=== PATIENT | female | born 1950 | race Caucasian/White ===

== ENCOUNTER 2019-12-28 07:42 | Outpatient (REF) | payer MEDICARE, OTHER, SELFPAY ==
[2019-12-28 10:20] LABS: MANUAL DIFF FLAG NO
[2019-12-28 10:41] LABS: Basophils Percent Auto 0.8 % (0-2); Eosinophils Absolute Auto 0.2 X10*3/uL (0.0-0.4); Eosinophils Percent Auto 3.2 % (0-4); Hematocrit 42.1 % (37-47); Hemoglobin 13.7 g/dl (12.0-16.0); Imm Gran Abs Auto 0.02 X10*3/uL (0.00-0.03); Imm Gran Pct Auto 0.4 % (0.0-0.4); Lymphocytes Absolute Auto 1.7 X10*3/uL (1.2-4.9); Lymphocytes Percent Auto 32.1 % (20-40); Mean Corpuscular HGB Conc 32.5 g/dl (31.0-35.0); Mean Corpuscular Hemoglobin 28.8 pg (27.0-33.0); Mean Corpuscular Volume 88.6 fL (80-98); Mean Platelet Volume 9.5 fL (9.4-12.3); Monocytes Absolute Auto 0.7 X10*3/uL (0.1-1.2); Monocytes Percent Auto 13.8 % (2-11); Neutrophils Absolute Auto 2.6 X10*3/uL (2.0-8.3); Neutrophils Percent Auto 49.7 % (45-73); Platelet Count 254 X10*3/uL (160-400); Red Blood Count 4.75 X10*6/uL (4.20-5.50); Red Cell Distribution Width 13.3 % (11.0-16.0); White Blood Count 5.3 X10*3/uL (4.8-10.8)
[2019-12-28 11:17] LABS: Alanine Aminotransferase 15 U/L (0-31); Albumin Level 4.2 g/dL (3.5-5.0); Alkaline Phosphatase 58 U/L (39-117); Anion Gap 13 (12-20); Aspartate Amino Transferase 25 U/L (5-31); Bilirubin Total 0.5 mg/dL (0.0-1.0); Blood Urea Nitrogen 11 mg/dL (9-16); Calcium 8.5 mg/dL (8.4-10.2); Carbon Dioxide 29 mmol/L (22-29); Chloride 103 mmol/L (96-108); Cholesterol 184 mg/dL; Estimated Glomerular Filt Rate 56; Glucose Fasting 83 mg/dL (60-99); HDL Cholesterol 66 mg/dL; LDL Cholesterol Calculated 108 mg/dl; Potassium 4.1 mmol/l (3.3-5.1); Sodium 141 mmol/L (135-145); Total Protein 6.3 g/dL (6.5-8.0); Triglycerides 53 mg/dL
[2019-12-28 11:29] LABS: Thyroid Stimulating Hormone 6.64 mIU/mL (0.32-4.0); Vitamin D 25-OH Total 45.8 ng/mL (>30)
[2019-12-28 12:10] LABS: Folate 18.8 ng/mL (> or = 4.0); Vitamin B12 735 pg/mL (200-900)
[2019-12-28 18:14] LABS: T4 Thyroxine 5.1 ug/dL (4.5-12.0)
== END 2019-12-28 07:43 | disposition home or self-care (01) ==
LOC: HO.10HDL 07:42
PROVIDERS: PCP Internal Medicine; Visit Provider Internal Medicine
DX: E03.9 Hypothyroidism, unspecified (principal); M81.0 Age-related osteoporosis without current pathological fracture
CPT/HCPCS: 36415; 80053; 80061; 82306; 82607; 82746; 84436; 84443; 85025

== ENCOUNTER 2020-05-14 11:24 | Outpatient (REF) | payer MEDICARE, OTHER, SELFPAY ==
[2020-05-14 15:19] LABS: Thyroid Stimulating Hormone 1.92 uIU/mL (0.32-4.0)
== END 2020-05-14 11:25 | disposition home or self-care (01) ==
LOC: HO.10HDL 11:24
PROVIDERS: Visit Provider Internal Medicine
DX: E03.9 Hypothyroidism, unspecified (principal)
CPT/HCPCS: 36415; 84439; 84443

== ENCOUNTER 2020-11-12 08:34 | Outpatient (REF) | payer MEDICARE, OTHER, SELFPAY ==
[2020-11-12 10:08] LABS: MANUAL DIFF FLAG NO
[2020-11-12 10:15] LABS: Basophils Absolute Auto 0.1 X10*3/uL (0.0-0.2); Basophils Percent Auto 0.9 % (0-2); Eosinophils Absolute Auto 0.2 X10*3/uL (0.0-0.4); Eosinophils Percent Auto 2.8 % (0-4); Hematocrit 40.7 % (37-47); Hemoglobin 13.5 g/dl (12.0-16.0); Imm Gran Abs Auto 0.02 X10*3/uL (0.00-0.03); Imm Gran Pct Auto 0.4 % (0.0-0.4); Lymphocytes Absolute Auto 1.7 X10*3/uL (1.2-4.9); Lymphocytes Percent Auto 31.2 % (20-40); Mean Corpuscular HGB Conc 33.2 g/dl (31.0-35.0); Mean Corpuscular Hemoglobin 29.2 pg (27.0-33.0); Mean Corpuscular Volume 87.9 fL (80-98); Monocytes Absolute Auto 0.7 X10*3/uL (0.1-1.2); Monocytes Percent Auto 12.9 % (2-11); Neutrophils Absolute Auto 2.8 X10*3/uL (2.0-8.3); Neutrophils Percent Auto 51.8 % (45-73); Platelet Count 234 X10*3/uL (160-400); Red Blood Count 4.63 X10*6/uL (4.20-5.50); Red Cell Distribution Width 13.3 % (11.0-16.0); White Blood Count 5.4 X10*3/uL (4.8-10.8)
[2020-11-12 10:40] LABS: Alanine Aminotransferase 16 U/L (0-31); Albumin Level 4.2 g/dL (3.5-5.0); Alkaline Phosphatase 57 U/L (39-117); Anion Gap 10 (12-20); Aspartate Amino Transferase 22 U/L (5-31); Bilirubin Total 0.8 mg/dL (0.0-1.0); Blood Urea Nitrogen 10 mg/dL (9-16); Calcium 9.2 mg/dL (8.4-10.2); Carbon Dioxide 29 mmol/L (22-29); Chloride 106 mmol/L (96-108); Cholesterol 184 mg/dL; Estimated Glomerular Filt Rate > 60; Glucose Random 89 mg/dL (60-115); HDL Cholesterol 64 mg/dL; LDL Cholesterol Calculated 111 mg/dl; Potassium 4.2 mmol/L (3.3-5.1); Sodium 141 mmol/L (135-145); Total Protein 6.2 g/dL (6.5-8.0); Triglycerides 47 mg/dL
[2020-11-12 11:05] LABS: Free T4 (Free Thyroxine) 0.77 ng/dL (0.71-1.85); Thyroid Stimulating Hormone 1.54 uIU/mL (0.32-4.0); Vitamin D 25-OH Total 46.2 ng/mL (>30)
[2020-11-12 11:16] LABS: Vitamin B12 632 pg/mL (200-900)
== END 2020-11-12 08:35 | disposition home or self-care (01) ==
LOC: HO.10HDL 08:34
PROVIDERS: Visit Provider Internal Medicine
DX: M81.0 Age-related osteoporosis without current pathological fracture (principal); E78.00 Pure hypercholesterolemia, unspecified
CPT/HCPCS: 36415; 80053; 80061; 82306; 82607; 82746; 84439; 84443; 85025

== ENCOUNTER 2021-08-01 11:13 | Outpatient (REF) | payer MEDICARE, OTHER, SELFPAY ==
[2021-08-01 11:21] LABS: MANUAL DIFF FLAG NO
[2021-08-01 11:32] LABS: Basophils Absolute Auto 0.1 X10*3/uL (0.0-0.2); Basophils Percent Auto 0.7 % (0-2); Eosinophils Absolute Auto 0.1 X10*3/uL (0.0-0.4); Eosinophils Percent Auto 1.7 % (0-4); Hematocrit 40.6 % (37.0-47.0); Hemoglobin 13.1 g/dl (12.0-16.0); Imm Gran Abs Auto 0.03 X10*3/uL (0.00-0.03); Imm Gran Pct Auto 0.4 % (0.0-0.4); Lymphocytes Absolute Auto 1.8 X10*3/uL (1.2-4.9); Lymphocytes Percent Auto 25.9 % (20-40); Mean Corpuscular HGB Conc 32.3 g/dl (31.0-35.0); Mean Corpuscular Hemoglobin 28.1 pg (27.0-33.0); Mean Corpuscular Volume 86.9 fL (80.0-98.0); Mean Platelet Volume 8.9 fL (9.4-12.3); Monocytes Absolute Auto 0.9 X10*3/uL (0.1-1.2); Monocytes Percent Auto 12.7 % (2-11); Neutrophils Absolute Auto 4.1 x10*3/uL (2.0-8.3); Neutrophils Percent Auto 58.6 % (45-73); Platelet Count 249 X10*3/uL (160-400); Red Blood Count 4.67 X10*6/uL (4.20-5.50); Red Cell Distribution Width 13.3 % (11.0-16.0)
== END 2021-08-01 11:14 | disposition home or self-care (01) ==
LOC: HO.LAB 11:13
PROVIDERS: PCP Internal Medicine; Visit Provider Internal Medicine
DX: Z01.818 Encounter for other preprocedural examination (principal)
CPT/HCPCS: 36415; 85025

== ENCOUNTER 2021-11-24 07:33 | Outpatient (REF) | payer MEDICARE, OTHER, SELFPAY ==
[2021-11-24 11:02] LABS: Anion Gap 14 (12-20); Blood Urea Nitrogen 13 mg/dL (9-16); Calcium 9.2 mg/dL (8.4-10.2); Carbon Dioxide 28 mmol/L (22-29); Chloride 103 mmol/L (96-108); Estimated Glomerular Filt Rate 60; Glucose Fasting 84 mg/dL (60-99); Potassium 4.1 mmol/L (3.3-5.1); Sodium 141 mmol/L (135-145)
[2021-11-24 11:26] LABS: TSH reflex Free T4 2.82 uIU/mL (0.32-4.0)
== END 2021-11-24 07:34 | disposition home or self-care (01) ==
LOC: HO.10HDL 07:33
PROVIDERS: Visit Provider Nurse Practitioner Family
DX: E03.9 Hypothyroidism, unspecified (principal); Z13.1 Encounter for screening for diabetes mellitus
CPT/HCPCS: 36415; 80048; 84443

== ENCOUNTER 2022-11-19 09:54 | Outpatient (AMB) | payer MEDICARE, OTHER, SELFPAY ==
[2022-11-19 09:56] VITALS: BP 130/82; PULSE 85; O2SAT 98; BMI 21.2
--- NOTE | 2022-11-19 09:56 | A.OFFVIS_ITS ---
Intake Vital Signs 11/19/22 09:56 Height 5 ft 1 in Weight 112 lb BMI 21.2 BP 130/82 Blood Pressure Location Lt brachial Position Sitting Pulse 85 Pulse Source Pulse Oximeter Temp Source Skin Pulse Oximetry (%) 98 Oxygen Delivery Method Room Air Intake Visit Reasons: AWV(last 11/18/21) Intake Note: Patient is here for an Annual Wellness Visit. 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 Patient of Dr. Stone. Today we discussed patient's need for diabetes screening, bone density screening, mammogram, and colon cancer screening. Patient has declined mammogram and colon cancer screening. Up-to-date with immunizations. [place] of care was reviewed with the patient and she was provided with a screening schedule. Patient reports that she did fill out healthcare proxy and MOLST forms in the past, none on file, patient will check her home files, if she does not have those forms she will fill out new forms. [facility] Medical History Preop exam for internal medicine Osteoporosis GERD (gastroesophageal reflux disease) Hypothyroid Surgical History History of tonsillectomy and adenoidectomy Social History Housing: House Alcohol intake: current Alcohol intake frequency: holidays/special occasions only Patient Tobacco Use Status: Never used Tobacco e-Cigarette/Vaping Use: Never Used Second Hand Smoke Exposure: No service: No Current occupational status: retired Cognitive needs: No Hearing needs: No Vision needs: Yes Questionnaire Medicare Wellness Checkup What [age]?: 70-79 (71) What gender do you identify with?: female During the past 4 weeks, how much have you been bothered by emotional problems such as feeling anxious, depressed, irritable, sad or downhearted, and blue?: not at all During the past 4 weeks, has your physical & emotional health limited your social activities with family, friends, neighbors, or groups?: not at all During the past 4 weeks, how much bodily pain have you generally had?: no pain During the past 4 weeks, was someone available to help you if you needed & wanted help?: yes, as much as I wanted During the past 4 weeks, what was the hardest physical activity you could do for at least 2 minutes?: heavy Can you get to places out of walking distance without help? (For eg., can you travel alone on buses, taxis or drive your car?): Yes Can you go shopping for groceries or clothes without someone's help?: Yes Can you prepare your own meals?: Yes Can you do your housework without help?: Yes Because of any health problems, do you need the help of another person with your personal care needs such as eating, bathing, dressing or getting around the house?: No Can you handle your own money without help?: Yes During the past 4 weeks, how would you rate your health in general?: very good During the past 4 weeks how have things been going for you?: pretty well Are you having difficulties driving your car?: no Do you always fasten your seat belt when you are in a car?: yes, usually During past 4 weeks, have you been bothered by the following: never: Falling or dizzy when standing up, Sexual problems?, Trouble eating well?, Teeth or denture problems?, Problems using the telephone? and Tiredness or fatigue? Have you fallen 2 or more times in the past year?: No Are you afraid of falling?: No Are you a smoker?: no During the past 4 weeks, how many drinks of wine, beer, or other alcoholic beverages did you have?: 1 drink or less per week Do you exercise for about 20 minutes 3 or more times a week?: yes, most of the time Have you been given information to help with the following?: no: Hazards in your house that might hurt you? and no: Keeping track of your medications? How often do you have trouble taking medicines the way you have been told to take them?: I always take medicine as prescribed How confident are you that you can control & manage most of your health problems?: very confident What is your race?: White Mini Mental State Exam (MMSE) Orientation What is the (year) (season) (date) (day) (month)?: year, season, date, day and month Score Score: 5 Activity of Daily Living Bathing - sponge bath, tub bath or shower: receives no assistance (gets in/out by self, if usual bathing means Dressing - getting clothes from closets & drawers, including inner/outer garments & fasteners.: gets clothes & gets completely dressed without help Toileting - going to the 'toilet room' for urine/bowel elimination & cleaning self/arranging clothes: goes to toilet room, cleans self, arranges clothes without help Transfer: moves in & out of bed and chair without help (may use support object) Continence: controls urination/bowel movements completely by self Feeding: feeds self without help Total Score: 0 Information obtained from: patient Using telephone: independent Traveling: independent Shopping: independent Preparing meals: independent Housework: independent Taking medicine: independent Managing money: independent PHQ-9 Over the last 2 weeks, how often have you been bothered by any of the following problems? 1. Little interest or pleasure in doing things: not at all 2. Feeling down, depressed, or hopeless: not at all 3. Trouble falling or staying asleep, or sleeping too much: not at all 4. Feeling tired or having little energy: not at all 5. Poor appetite or overeating: not at all 6. Feeling bad about yourself - or that you are a failure or have let yourself or your family down: not at all 7. Trouble concentrating on things, such as reading the newspaper or watching television: not at all 8. Moving or speaking so slowly that other people could have noticed. Or the opposite - being so fidgety or restless that you have been moving around a lot more than usual: not at all 9. Thoughts that you would be better off or of hurting yourself in some way: not at all Total score: 0 Depression Screening Interpretation: Negative 61153 - PHQ-9 Billing: Yes Source: Developed by Drs. Lizandro Vergara, Laila Chua, Feliberto Lange and colleagues, with an educational milton from [employer]. Physical Exam Vital Signs: Last Vital Signs Pulse 85 11/19/22 09:56 BP 130/82 11/19/22 09:56 Pulse Ox 98 11/19/22 09:56 Oxygen Delivery Method Room Air 11/19/22 09:56 BMI result Body Mass Index 21.2 Const General: cooperative and no acute distress Orientation/consciousness: patient oriented x3 HEENT Other: Whisper test: pass Neuro Other: Balance: Normal Get up and walk: able to Romberg: negative Tandem gait: able to General: patient oriented x3 Assessment & Plan Assessment & Plan (1) Adult general medical exam: Code(s): Z00.00 - Encounter for general adult medical examination without abnormal findings (2) Screening for diabetes mellitus: Code(s): Z13.1 - Encounter for screening for diabetes mellitus (3) Mammogram declined: Code(s): Z53.20 - Procedure and treatment not carried out because of patient's decision for unspecified reasons (4) GERD (gastroesophageal reflux disease): Code(s): K21.9 - Gastro-esophageal reflux disease without esophagitis Qualifiers: Esophagitis presence: without esophagitis Qualified Code(s): K21.9 - Gastro-esophageal reflux disease without esophagitis Plan: Stable Avoid GERD trigger foods (5) Hypothyroid: Code(s): E03.9 - Hypothyroidism, unspecified Qualifiers: Hypothyroidism type: acquired Qualified Code(s): E03.9 - Hypothyroidism, unspecified Plan: [place] 60 mg daily (6) Post-menopausal: Code(s): Z78.0 - Asymptomatic menopausal state (7) Colonoscopy refused: Code(s): Z53.20 - Procedure and treatment not carried out because of patient's decision for unspecified reasons (8) Osteoporosis: Code(s): M81.0 - Age-related osteoporosis without current pathological fracture Qualifiers: Osteoporosis type: age-related Presence of current pathological fracture: without current pathological fracture Qualified Code(s): M81.0 - Age- related osteoporosis without current pathological fracture Plan: Bone density screen ordered Orders: Orders Basic Metabolic Panel Fasting Today Z13.1 - Encounter for screening for diabetes mellitus XR DEXA axial skeleton Today M81.0 - Age-related osteoporosis without current pathological fracture, Z78.0 - Asymptomatic menopausal state Quality Reporting (2019) Depression/Bipolar (159/160/161/177) PHQ-9: Total score: 0 Coding Level of Care Code Medicare Subsequent (G0439) Diagnoses Adult general medical exam Z00.00 Screening for diabetes mellitus Z13.1 Mammogram declined Z53.20 Gastroesophageal reflux disease without esophagitis K21.9 Esophagitis presence: without esophagitis Acquired hypothyroidism E03.9 Hypothyroidism type: acquired Post-menopausal Z78.0 Colonoscopy refused Z53.20 Age-related osteoporosis without current pathological fracture M81.0 Osteoporosis type: age-related Presence of current pathological fracture: without current pathological fracture CPT Codes Advance Care Planning - Time spent: 1-15 minutes, not on file ([id number]) Advance Care Planning Advance Care Planning discussion: Exists, not on file Date of discussion: 11/19/22 Who was present: pt and medical administrative technician Forms completed: None Time spent: 1-15 minutes, not on file Actual minutes spent: 2 Did not discuss due to Cultural/Spiritual beliefs: No
== END 2022-11-19 10:39 | disposition home or self-care (01) ==
PROVIDERS: Visit Provider Nurse Practitioner Family
DX: Z00.00 Encounter for general adult medical examination without abnormal findings (principal); Z13.1 Encounter for screening for diabetes mellitus; Z53.20 Procedure and treatment not carried out because of patient's decision for unspecified reasons; K21.9 Gastro-esophageal reflux disease without esophagitis; E03.9 Hypothyroidism, unspecified; Z78.0 Asymptomatic menopausal state; M81.0 Age-related osteoporosis without current pathological fracture
CPT/HCPCS: 1124F; G0439

== ENCOUNTER 2022-12-01 07:45 | Outpatient (REF) | payer MEDICARE, OTHER, SELFPAY | END 2022-12-01 07:46 | disposition home or self-care (01) | LOC: HO.10HDL 07:45 | PROVIDERS: Visit Provider Nurse Practitioner Family | DX: Z13.1 Encounter for screening for diabetes mellitus (principal) | CPT/HCPCS: 36415; 80048 ==

== ENCOUNTER 2023-01-01 08:51 | Outpatient (REF) | payer MEDICARE, OTHER, SELFPAY ==
[2023-01-01 11:09] LABS: MANUAL DIFF FLAG NO
[2023-01-01 11:33] LABS: Alanine Aminotransferase 12 U/L (0-31); Albumin Level 4.2 g/dL (3.5-5.0); Alkaline Phosphatase 56 U/L (39-117); Anion Gap 11 (12-20); Aspartate Amino Transferase 22 U/L (5-31); Bilirubin Total 0.5 mg/dL (0.0-1.0); Blood Urea Nitrogen 14 mg/dL (9-16); Calcium 9.1 mg/dL (8.4-10.2); Carbon Dioxide 28 mmol/L (22-29); Chloride 106 mmol/L (96-108); Cholesterol 162 mg/dL (<200); Estimated Glomerular Filt Rate > 60; Glucose Random 95 mg/dL (60-115); HDL Cholesterol 63 mg/dL (>40); LDL Cholesterol Calculated 91 mg/dL (<100); Potassium 4.1 mmol/L (3.3-5.1); Sodium 141 mmol/L (135-145); Total Protein 6.4 g/dL (6.5-8.0); Triglycerides 44 mg/dL (<150)
[2023-01-01 11:39] LABS: Basophils Percent Auto 0.9 % (0-2); Eosinophils Percent Auto 3.4 % (0-4); Hemoglobin 13.4 g/dl (12.0-16.0); Imm Gran Abs Auto 0.01 X10*3/uL (0.00-0.03); Imm Gran Pct Auto 0.2 % (0.0-0.4); Lymphocytes Absolute Auto 1.8 X10*3/uL (1.2-4.9); Lymphocytes Percent Auto 31.2 % (20-40); Mean Corpuscular HGB Conc 32.7 g/dl (31.0-35.0); Mean Corpuscular Hemoglobin 27.9 pg (27.0-33.0); Mean Corpuscular Volume 85.4 fL (80.0-98.0); Mean Platelet Volume 9.3 fL (9.4-12.3); Monocytes Absolute Auto 0.9 X10*3/uL (0.1-1.2); Monocytes Percent Auto 15.1 % (2-11); Neutrophils Absolute Auto 2.8 x10*3/uL (2.0-8.3); Neutrophils Percent Auto 49.2 % (45-73); Platelet Count 220 X10*3/uL (160-400); Red Cell Distribution Width 13.5 % (11.0-16.0); White Blood Count 5.6 X10*3/uL (4.8-10.8)
[2023-01-01 11:40] LABS: Basophils Absolute Auto 0.1 X10*3/uL (0.0-0.2); Eosinophils Absolute Auto 0.2 X10*3/uL (0.0-0.4)
[2023-01-01 12:05] LABS: Folate 11.8 ng/mL (> or = 4.0); Vitamin B12 1397 pg/mL (200-900)
[2023-01-01 12:11] LABS: Free T4 (Free Thyroxine) 0.74 ng/dL (0.71-1.85); Thyroid Stimulating Hormone 1.16 uIU/mL (0.32-4.0); Vitamin D 25-OH Total 59.1 ng/mL (>30)
== END 2023-01-01 08:52 | disposition home or self-care (01) ==
LOC: HO.10HDL 08:51
PROVIDERS: Visit Provider Internal Medicine
DX: E03.9 Hypothyroidism, unspecified (principal); E78.00 Pure hypercholesterolemia, unspecified; M81.0 Age-related osteoporosis without current pathological fracture
CPT/HCPCS: 36415; 80053; 80061; 82306; 82607; 82746; 84439; 84443; 85025

== ENCOUNTER 2023-01-08 15:27 | Outpatient (AMB) | payer MEDICARE, OTHER, SELFPAY ==
[2023-01-08 15:29] VITALS: BP 152/80; PULSE 85; O2SAT 98; BMI 21.2
--- NOTE | 2023-01-08 15:29 | MHC.PC.OV ---
Vital Signs 01/08/23 15:29 Height 5 ft 1 in Weight 112 lb BMI 21.2 BP 152/80 H Blood Pressure Location Lt brachial Position Sitting Pulse 85 Pulse Source Pulse Oximeter Pulse Oximetry (%) 98 Oxygen Delivery Method Room Air Intake Visit Reasons: Follow up on labs Health Promotion Officer: Not Required per policy Accompanied by: Self / Same As Patient Allergies Codeine-Guaifenesin Allergy (Unknown, Uncoded 01/08/23 15:30) rash shellfish Adverse Reaction (Mild, Uncoded 01/08/23 15:30) upset stomach Tobacco use date assessed: 01/08/23 Fall risk assessment: No Falls in past year Last assessed Fall Risk: 01/08/23 Dental Screening Dental Screen Date: 01/08/23 Did you have a dental visit in the last 12 months?: Yes Did you have a dental problem in the last 6 months where you did not have access to dental care?: No Was dental information given to patient?: Patient has dentist HPI Follow up on labs HPI Details 72-year-old female with a history of GERD and hypothyroidism last seen in July 2021 coming in for follow-up. Patient was for preop at that time review of the notes had a bone density requested for January 2023. Patient had an annual well visit in October 2022. Patient has seen Orthopedics in April 2022 for thoracic muscular spasms x-ray done shows mild degenerative changes on the back advise heating pad and stretching exercises [facility] Medical History (Updated 01/08/23 @ 16:03 by Mariana Stone MD) Screening for diabetes mellitus Preop exam for internal medicine Osteoporosis GERD (gastroesophageal reflux disease) Hypothyroid Surgical History History of tonsillectomy and adenoidectomy Social History Housing: House Alcohol intake: current Alcohol intake frequency: holidays/special occasions only Patient Tobacco Use Status: Never used Tobacco e-Cigarette/Vaping Use: Never Used Second Hand Smoke Exposure: No service: No Current occupational status: retired Cognitive needs: No Hearing needs: No Vision needs: Yes Questionnaire PHQ-9 Over the last 2 weeks, how often have you been bothered by any of the following problems? 1. Little interest or pleasure in doing things: not at all 2. Feeling down, depressed, or hopeless: not at all 3. Trouble falling or staying asleep, or sleeping too much: not at all 4. Feeling tired or having little energy: not at all 5. Poor appetite or overeating: not at all 6. Feeling bad about yourself - or that you are a failure or have let yourself or your family down: not at all 7. Trouble concentrating on things, such as reading the newspaper or watching television: not at all 8. Moving or speaking so slowly that other people could have noticed. Or the opposite - being so fidgety or restless that you have been moving around a lot more than usual: not at all 9. Thoughts that you would be better off or of hurting yourself in some way: not at all Total score: 0 Depression Screening Interpretation: Negative Depression Screening Done: Yes 75318 - PHQ-9 Billing: Yes Source: Developed by Drs. Lizandro Vergara, Laila Chua, Feliberto Lange and colleagues, with an educational milton from [employer]. Thrive Questionnaire Date Thrive assessed: 01/08/23 I am a: Patient What is your living situation today?: I have a steady place to live Within the past 12 months, did the food you bought not last and you didn't have the money to get more?: Never true Within the past 12 months, did you worry whether your food would run out before you got money to buy more?: Never true Do you have trouble paying for medicines?: No Do you have trouble getting transportation to medical appointments?: No Do you have trouble paying your heating and electricity bill?: No Do you have trouble taking care of your child, family member or friend?: No Do you have trouble with day-to-day activities such as bathing, preparing meals, shopping, managing finances, etc.?: No Are you currently unemployed and looking for a job?: No Are you interested in more education?: No Please select the resources that you would like help with: None AUDIT C Alcohol Use Questionnaire (AUDIT-C) 1. How often do you have a drink containing alcohol?: Monthly or less 2. How many drinks containing alcohol do you have on a typical day when you are drinking?: 1 or 2 3. How often do you have six or more drinks on one occasion?: Never Total Score: 1 Score Reviewed/Action Taken: No SAMANTHA-7 AMB Questionnaire SAMANTHA-7 Date SAMANTHA - 7 assessed: 01/08/23 Feeling nervous, anxious, or on edge: 0 = Not at all Not being able to stop or control worryin = Not at all Worrying too much about different things: 0 = Not at all Trouble relaxin = Not at all Being so restless that it is hard to sit still: 0 = Not at all Becoming easily annoyed or irritable: 0 = Not at all Feeling afraid as if something awful might happen: 0 = Not at all Total SAMANTHA-7 score (0-4 normal; 5-9 mild; 10-14 moderate; 15-21 severe): 0 Source: Developed by Drs. Lizandro Vergara, Laila Chua, Feliberto Lange and colleagues, with an educational milton from [employer]. Physical exam (Primary Care) Vital Signs: Last Vital Signs Pulse 85 01/08/23 15:29 BP 152/80 H 01/08/23 15:29 Pulse Ox 98 01/08/23 15:29 Oxygen Delivery Method Room Air 01/08/23 15:29 BMI result Body Mass Index 21.2 Tobacco/Smoking Status: Tobacco use Status Tobacco use date assessed 01/08/23 01/08/23 15:31 Patient Tobacco Use Status Never used Tobacco 01/08/23 15:31 Tobacco use type 11/07/20 13:35 e-Cigarette/Vaping Use Never Used 01/08/23 15:31 PHQ-9: PHQ-9 Score PHQ-9: Total score 0 01/08/23 15:31 Depression Screening Interpretation: Negative Thrive Assessment: Date of Thrive Assessment Date Thrive assessed 01/08/23 01/08/23 15:31 Const General: alert; No acute distress Eyes Conjunctivae: conjunctivae normal Resp Auscultation: clear to auscultation bilaterally Cardio Rate: regular rate Rhythm: regular rhythm GI Inspection: Yes normal to inspection Extrem General: Yes normal to inspection and No edema Assessment and Plan Assessment & Plan (1) Colon cancer screening: Code(s): Z12.11 - Encounter for screening for malignant neoplasm of colon Plan: Reminded about the Cologuard test (2) GERD (gastroesophageal reflux disease): Code(s): K21.9 - Gastro-esophageal reflux disease without esophagitis Qualifiers: Esophagitis presence: without esophagitis Qualified Code(s): K21.9 - Gastro-esophageal reflux disease without esophagitis Plan: Avoid the foods that causes that usually spicy foods, tomato products, juices, coffee, soda and foods that your sensitive to. After eating do not lie down, allow 3-4 hours before in lie down. And keep the head of bed above 30 degrees to avoid the acid from going up. (3) Hypothyroid: Code(s): E03.9 - Hypothyroidism, unspecified Qualifiers: Hypothyroidism type: acquired Qualified Code(s): E03.9 - Hypothyroidism, unspecified Plan: Continue with the thyroid medication patient gets a different thyroid medication for (4) Osteoporosis: Code(s): M81.0 - Age-related osteoporosis without current pathological fracture Qualifiers: Osteoporosis type: age-related Presence of current pathological fracture: without current pathological fracture Qualified Code(s): M81.0 - Age-related osteoporosis without current pathological fracture Plan: Reminded about the bone density in January Coding Level of Care Code Est Pt Level 4 (98181) Diagnoses Colon cancer screening Z12.11 Gastroesophageal reflux disease without esophagitis K21.9 Esophagitis presence: without esophagitis Acquired hypothyroidism E03.9 Hypothyroidism type: acquired Age-related osteoporosis without current pathological fracture M81.0 Osteoporosis type: age-related Presence of current pathological fracture: without current pathological fracture
== END 2023-01-08 16:33 | disposition home or self-care (01) ==
PROVIDERS: PCP Internal Medicine; Visit Provider Internal Medicine
DX: Z12.11 Encounter for screening for malignant neoplasm of colon (principal); K21.9 Gastro-esophageal reflux disease without esophagitis; E03.9 Hypothyroidism, unspecified; M81.0 Age-related osteoporosis without current pathological fracture
CPT/HCPCS: 99214

== ENCOUNTER 2023-11-24 10:21 | Outpatient (AMB) | payer MEDICARE, OTHER, SELFPAY ==
--- NOTE | 2023-11-24 10:25 | A.OFFVIS_ITS ---
Intake Vital Signs 11/24/23 10:27 11/24/23 10:42 Height 5 ft 1 in Weight 104 lb BMI 19.6 BP 140/80 H 144/70 H Blood Pressure Location Lt brachial Lt brachial Position Sitting Sitting Pulse 87 Pulse Source Pulse Oximeter Pulse Oximetry (%) 98 Oxygen Delivery Method Room Air Intake Visit Reasons: [facility] G0439 [employer] Supervisor Required: No Accompanied by: Self / Same As Patient Allergies Codeine-Guaifenesin Allergy (Unknown, Uncoded 11/24/23 10:29) rash shellfish Adverse Reaction (Mild, Uncoded 11/24/23 10:29) upset stomach Medication List - Last Reconciled 11/24/23 by Mariana Stone MD ascorbic acid (vitamin C) mg PO cholecalciferol (vitamin D3) 50 mcg PO DAILY [heartburn Sooth PO] [omega 3 5 mL PO .QD] [PLANT BASE RED ALgae Calcium 300 mg PO .3 tabs QD] thyroid (pork) ([place] Thyroid) 60 mg PO DAILY [Vitamin b plus PO .QD] HPI V G0439 HPI Details 73-year-old female with GERD hypothyroid ism and osteoporosis last seen in December 2022. Patient declined colon test mammogram. Bone density was requested. Bone density done in 02/10/2023 showing osteoporosis with spine 4.7% decrease hip 5.8 increase femoral neck 4.2 decrease noted weight loss? PAtient takes a lot of diffenrent med - Gluten ease- concern on weight loss PFSH Medical History (Updated 11/24/23 @ 10:59 by Mariana Stone MD) Screening for diabetes mellitus Preop exam for internal medicine Osteoporosis GERD (gastroesophageal reflux disease) Hypothyroid Surgical History History of tonsillectomy and adenoidectomy Social History (Updated 11/24/23 @ 10:49 by Mariana Stnoe MD) Housing: House Alcohol intake: current Alcohol intake frequency: holidays/special occasions only Comment: once a year glass Patient Tobacco Use Status: Never used Tobacco e-Cigarette/Vaping Use: Never Used Second Hand Smoke Exposure: No service: No Current occupational status: retired Cognitive needs: No Hearing needs: No Vision needs: Yes Questionnaire Medicare Wellness Checkup [age] What gender do you identify with?: female During the past 4 weeks, how much have you been bothered by emotional problems such as feeling anxious, depressed, irritable, sad or downhearted, and blue?: not at all During the past 4 weeks, has your physical & emotional health limited your social activities with family, friends, neighbors, or groups?: not at all During the past 4 weeks, how much bodily pain have you generally had?: no pain During the past 4 weeks, was someone available to help you if you needed & wanted help?: yes, as much as I wanted During the past 4 weeks, what was the hardest physical activity you could do for at least 2 minutes?: heavy Can you get to places out of walking distance without help? (For eg., can you travel alone on buses, taxis or drive your car?): Yes Can you go shopping for groceries or clothes without someone's help?: Yes Can you prepare your own meals?: Yes Can you do your housework without help?: Yes Because of any health problems, do you need the help of another person with your personal care needs such as eating, bathing, dressing or getting around the house?: No Can you handle your own money without help?: Yes During the past 4 weeks, how would you rate your health in general?: excellent During the past 4 weeks how have things been going for you?: very well; could hardly better Are you having difficulties driving your car?: no Do you always fasten your seat belt when you are in a car?: yes, usually During past 4 weeks, have you been bothered by the following: never: Falling or dizzy when standing up, Sexual problems?, Trouble eating well?, Teeth or denture problems?, Problems using the telephone? and Tiredness or fatigue? Have you fallen 2 or more times in the past year?: No Are you afraid of falling?: No Are you a smoker?: no During the past 4 weeks, how many drinks of wine, beer, or other alcoholic beverages did you have?: no alcohol at all Do you exercise for about 20 minutes 3 or more times a week?: yes, most of the time Have you been given information to help with the following?: no: Hazards in your house that might hurt you? and no: Keeping track of your medications? How often do you have trouble taking medicines the way you have been told to take them?: I always take medicine as prescribed How confident are you that you can control & manage most of your health problems?: very confident What is your race?: White PHQ-9 Over the last 2 weeks, how often have you been bothered by any of the following problems? 1. Little interest or pleasure in doing things: not at all 2. Feeling down, depressed, or hopeless: not at all 3. Trouble falling or staying asleep, or sleeping too much: not at all 4. Feeling tired or having little energy: not at all 5. Poor appetite or overeating: not at all 6. Feeling bad about yourself - or that you are a failure or have let yourself or your family down: not at all 7. Trouble concentrating on things, such as reading the newspaper or watching television: not at all 8. Moving or speaking so slowly that other people could have noticed. Or the opposite - being so fidgety or restless that you have been moving around a lot more than usual: not at all 9. Thoughts that you would be better off or of hurting yourself in some way: not at all Total score: 0 Depression Screening Interpretation: Negative Depression Screening Done: Yes Source: Developed by Drs. Lizandro Vergara, Laila Chua, Feliberto Lange and colleagues, with an educational milton from [facility]. Fall Risk Assessment Fall Risk Assessment Fall risk assessment: No Falls in past year Thrive Questionnaire Date Thrive assessed: 11/24/23 I am a: Patient What is your living situation today?: I have a steady place to live Within the past 12 months, did the food you bought not last and you didn't have the money to get more?: Never true Within the past 12 months, did you worry whether your food would run out before you got money to buy more?: Never true Do you have trouble paying for medicines?: No Do you have trouble getting transportation to medical appointments?: No Do you have trouble paying your heating and electricity bill?: No Do you have trouble taking care of your child, family member or friend?: No Do you have trouble with day-to-day activities such as bathing, preparing meals, shopping, managing finances, etc.?: No Are you currently unemployed and looking for a job?: No Are you interested in more education?: No Please select the resources that you would like help with: None Currently or been in a relationship where the following occur: No concerns reported THRIVE Score: 0 AUDIT C Alcohol Use Questionnaire (AUDIT-C) 1. How often do you have a drink containing alcohol?: Monthly or less 2. How many drinks containing alcohol do you have on a typical day when you are drinking?: 1 or 2 3. How often do you have six or more drinks on one occasion?: Never Total Score: 1 SAMANTHA-7 AMB Questionnaire SAMANTHA-7 Date SAMANTHA - 7 assessed: 11/24/23 Feeling nervous, anxious, or on edge: 0 = Not at all Not being able to stop or control worryin = Not at all Worrying too much about different things: 0 = Not at all Trouble relaxin = Not at all Being so restless that it is hard to sit still: 0 = Not at all Becoming easily annoyed or irritable: 0 = Not at all Feeling afraid as if something awful might happen: 0 = Not at all Total SAMANTHA-7 score (0-4 normal; 5-9 mild; 10-14 moderate; 15-21 severe): 0 Source: Developed by Drs. Lizandro Vergara, Laila Chua, Feliberto Lange and colleagues, with an educational milton from [facility]. Review of Systems Const Denies poor appetite and Denies weakness Eyes Denies no additional complaints ENT Reports Normal hearing present, Denies dizziness, Denies nasal congestion, Denies tinnitus and Denies sore throat Card Denies chest pain, Denies syncope, Denies rapid heart rate and Denies dyspnea Resp Denies cough and Denies dyspnea GI Denies change in stool character, Reports constipation, Denies diarrhea, Denies nausea and Denies vomiting Denies urinary frequency, Denies difficulty voiding and Denies dysuria Neuro Reports Normal hearing present, Denies confusion, Denies dizziness, Denies syncope and Denies weakness Psych Denies confusion Physical Exam Vital Signs: Last Vital Signs Pulse 87 11/24/23 10:27 BP 144/70 H 11/24/23 10:42 Pulse Ox 98 11/24/23 10:27 Oxygen Delivery Method Room Air 10/02/24 10:27 BMI result Body Mass Index 19.6 Const General: No confusion Orientation/consciousness: No confusion HEENT Head: Yes normocephalic Ears: external ears normal and TM's normal bilaterally Face and sinus: Yes normal facial exam Mouth: moist mucous membranes Throat: Yes tonsils normal Eyes Conjunctivae: conjunctivae normal Pupils: Equal, round and reactive pupils present and Pupil accommodation reflex normal Direct Ophthalmoscopy: normal light reflex Neck Neck: No lymphadenopathy Thyroid: Thyroid normal Chest Chest palpation & inspection: normal inspection of the chest Resp Effort & Inspection: normal respiratory effort and no audible wheezes Auscultation: clear to auscultation bilaterally, no crackles, no wheezes and lung sounds not diminished Cardio Rate: regular rate Rhythm: regular rhythm Peripheral pulses: radial pulses present and dorsalis pedis present GI Palpation (GI): no masses Auscultation: normal bowel sounds and normoactive bowel sounds Rectal Exam - Female: deferred Skin General skin exam: no rashes or lesions noted Rashes: no rashes Neuro General: No confusion Cranial nerves: Yes Equal, round and reactive pupils present and Yes Normal hearing present Cognition (Neuro): normal cognition Gait exam (Neuro): Normal gait present Motor exam (neuro): 5/5 motor strength present throughout Deep tendon reflexes (DTR's): Right brachioradialis reflex intensity grade: 2+, Left brachioradialis reflex intensity grade: 2+, Right patellar reflex intensity grade: 2+ and Left patellar reflex intensity grade: 2+ Extrem General: No edema Office Procedures Flu Questionnaire Does the patient have a severe egg allergy?: No Immunizations Fluarix Triv [id number] (PF) 45 mcg (15 mcg x 3)/0.5 mL IM syringe Performing Provider: Mariana Stone MD Performing Location: [facility] Documented (not given) by: SANTOS Brown on 11/24/23 10:37 Reason Not Given: Not Given pneumoc 20-chang conj-dip cr(PF) 0.5 mL IM syringe Performing Provider: Mariana Stone MD Performing Location: [facility] Administered by: SANTOS Brown on 11/24/23 11:15 Dose Route Admin Location Dispensed Lot Number Expiration Date [facility] Melter Caster 0.5 mL IM Right Deltoid 0.5 mL [id number] 09/22/24 [id number] [employer] VIS Given Date VIS Provided VIS Publication Date 11/24/23 Single Vaccine 21 Eligibility Eligibility Date Funding Source Not [facility] Eligible 11/24/23 Private Assessment & Plan Assessment & Plan (1) Medicare annual wellness visit, subsequent: Code(s): Z00.00 - Encounter for general adult medical examination without abnormal findings Plan: Patient is advised to eat healthy, keep well hydrated, keep active and have adequate sleep. (2) Mammogram declined: Code(s): Z53.20 - Procedure and treatment not carried out because of patient's decision for unspecified reasons Plan: Patient has declined (3) Osteoporosis: Code(s): M81.0 - Age-related osteoporosis without current pathological fracture Qualifiers: Osteoporosis type: age-related Presence of current pathological fracture: without current pathological fracture Qualified Code(s): M81.0 - Age- related osteoporosis without current pathological fracture Plan: Discussion about calcium and vitamin-D and medication options. (4) GERD (gastroesophageal reflux disease): Code(s): K21.9 - Gastro-esophageal reflux disease without esophagitis Qualifiers: Esophagitis presence: without esophagitis Qualified Code(s): K21.9 - Gastro-esophageal reflux disease without esophagitis Plan: Avoid the foods that causes that usually spicy foods, tomato products, juices, coffee, soda and foods that your sensitive to. After eating do not lie down, allow 3-4 hours before in lie down. And keep the head of bed above 30 degrees to avoid the acid from going up. (5) Hypothyroid: Code(s): E03.9 - Hypothyroidism, unspecified Qualifiers: Hypothyroidism type: acquired Qualified Code(s): E03.9 - Hypothyroidism, unspecified Plan: Continue with present thyroid medication. (6) Blood pressure elevated without history of HTN: Code(s): R03.0 - Elevated blood-pressure reading, without diagnosis of hypertension Plan: advised to monitor BP at home and record and discuss about the complications of this (7) Colon cancer screening: Code(s): Z12.11 - Encounter for screening for malignant neoplasm of colon Plan: Referral to Gastroenterology (8) Weight loss: Code(s): R63.4 - Abnormal weight loss Plan: Patient is very worried and workup started Orders: Orders Complete Blood Count Auto Diff Today E03.9 - Hypothyroidism, unspecified Free T4 (Free Thyroxine) Today E03.9 - Hypothyroidism, unspecified Vitamin B12 and Folate Today E03.9 - Hypothyroidism, unspecified Influenza [id number] Immunization Today Z23 - Encounter for immunization Comprehensive Met. Panel Today E03.9 - Hypothyroidism, unspecified Lipid Panel Today E03.9 - Hypothyroidism, unspecified, E78.00 - Pure hypercholesterolemia, unspecified Thyroid Stimulating Hormone Today E03.9 - Hypothyroidism, unspecified Vitamin D 25-OH Total Today E03.9 - Hypothyroidism, unspecified Pneumococcal 20 Immunization Today Z23 - Encounter for immunization Referrals Gastroenterology Referral Z12.11 - Encounter for screening for malignant neoplasm of colon Quality Reporting (2019) Fall Risk Screening ([facility] 139) Fall risk assessment: No Falls in past year Depression/Bipolar (159/160/161/177) PHQ-9: Total score: 0 Coding Level of Care Code Medicare Subsequent (G0439) Diagnoses Medicare annual wellness visit, subsequent Z00.00 Mammogram declined Z53.20 Age-related osteoporosis without current pathological fracture M81.0 Osteoporosis type: age-related Presence of current pathological fracture: without current pathological fracture Gastroesophageal reflux disease without esophagitis K21.9 Esophagitis presence: without esophagitis Acquired hypothyroidism E03.9 Hypothyroidism type: acquired Blood pressure elevated without history of HTN R03.0 Colon cancer screening Z12.11 Weight loss R63.4
[2023-11-24 10:27] VITALS: BP 140/80; PULSE 87; O2SAT 98; BMI 19.6
[2023-11-24 10:42] VITALS: BP 144/70
== END 2023-11-24 11:08 | disposition home or self-care (01) ==
PROVIDERS: PCP Internal Medicine; Visit Provider Internal Medicine
DX: Z00.00 Encounter for general adult medical examination without abnormal findings (principal); Z53.20 Procedure and treatment not carried out because of patient's decision for unspecified reasons; M81.0 Age-related osteoporosis without current pathological fracture; K21.9 Gastro-esophageal reflux disease without esophagitis; E03.9 Hypothyroidism, unspecified; R03.0 Elevated blood-pressure reading, without diagnosis of hypertension; Z12.11 Encounter for screening for malignant neoplasm of colon; R63.4 Abnormal weight loss; Z23 Encounter for immunization

== ENCOUNTER → 2023-11-24 10:21 | Outpatient (BNVA) | payer MEDICARE, OTHER, SELFPAY | PROVIDERS: PCP Internal Medicine; Visit Provider Internal Medicine | DX: Z00.01 Encounter for general adult medical examination with abnormal findings (principal); Z23 Encounter for immunization; M81.0 Age-related osteoporosis without current pathological fracture; K21.9 Gastro-esophageal reflux disease without esophagitis; E03.9 Hypothyroidism, unspecified; R03.0 Elevated blood-pressure reading, without diagnosis of hypertension; R63.4 Abnormal weight loss | CPT/HCPCS: 90471; 90677; 96127 ==

== ENCOUNTER 2023-11-25 07:53 | Outpatient (REF) | payer MEDICARE, OTHER, SELFPAY ==
[2023-11-25 08:18] LABS: MANUAL DIFF FLAG NO
[2023-11-25 08:53] LABS: Basophils Absolute Auto 0.1 X10*3/uL (0.0-0.2); Basophils Percent Auto 0.9 % (0-2); Eosinophils Absolute Auto 0.2 X10*3/uL (0.0-0.4); Eosinophils Percent Auto 2.6 % (0-4); Hematocrit 42.3 % (37.0-47.0); Hemoglobin 13.9 g/dl (12.0-16.0); Imm Gran Abs Auto 0.02 X10*3/uL (0.00-0.03); Imm Gran Pct Auto 0.3 % (0.0-0.4); Lymphocytes Absolute Auto 1.9 X10*3/uL (1.2-4.9); Lymphocytes Percent Auto 28.9 % (20-40); Mean Corpuscular HGB Conc 32.9 g/dl (31.0-35.0); Mean Corpuscular Hemoglobin 28.5 pg (27.0-33.0); Mean Corpuscular Volume 86.9 fL (80.0-98.0); Mean Platelet Volume 9.3 fL (9.4-12.3); Monocytes Absolute Auto 0.8 X10*3/uL (0.1-1.2); Monocytes Percent Auto 12.8 % (2-11); Neutrophils Absolute Auto 3.5 x10*3/uL (2.0-8.3); Neutrophils Percent Auto 54.5 % (45-73); Platelet Count 232 X10*3/uL (160-400); Red Blood Count 4.87 X10*6/uL (4.20-5.50); Red Cell Distribution Width 13.2 % (11.0-16.0); White Blood Count 6.4 X10*3/uL (4.8-10.8)
[2023-11-25 09:48] LABS: Alanine Aminotransferase 16 U/L (0-31); Albumin Level 4.3 g/dL (3.5-5.0); Alkaline Phosphatase 68 U/L (39-117); Anion Gap 11 (12-20); Aspartate Amino Transferase 21 U/L (5-31); Bilirubin Total 0.7 mg/dL (0.0-1.0); Blood Urea Nitrogen 10 mg/dL (9-16); Calcium 9.7 mg/dL (8.4-10.2); Carbon Dioxide 29 mmol/L (22-29); Chloride 105 mmol/L (96-108); Cholesterol 170 mg/dL (<200); Estimated Glomerular Filt Rate > 60; Glucose Random 95 mg/dL (60-115); HDL Cholesterol 69 mg/dL (>40); LDL Cholesterol Calculated 93 mg/dL (<100); Potassium 4.2 mmol/L (3.3-5.1); Sodium 141 mmol/L (135-145); Total Protein 6.7 g/dL (6.5-8.0); Triglycerides 43 mg/dL (<150)
[2023-11-25 09:56] LABS: Free T4 (Free Thyroxine) 0.79 ng/dL (0.71-1.85); Thyroid Stimulating Hormone 1.15 uIU/mL (0.32-4.0); Vitamin D 25-OH Total 65.9 ng/mL (>30)
[2023-11-25 10:17] LABS: Folate 12.4 ng/mL (> or = 4.0); Vitamin B12 946 pg/mL (200-900)
== END 2023-11-25 07:54 | disposition home or self-care (01) ==
LOC: HO.LAB 07:53
PROVIDERS: PCP Internal Medicine; Visit Provider Internal Medicine
DX: E03.9 Hypothyroidism, unspecified (principal); E78.00 Pure hypercholesterolemia, unspecified
CPT/HCPCS: 36415; 80053; 80061; 82306; 82607; 82746; 84439; 84443; 85025

== ENCOUNTER 2024-03-10 12:59 | Outpatient (AMB) | payer MEDICARE, OTHER, SELFPAY ==
[2024-03-10 13:04] VITALS: BP 128/72; PULSE 75; O2SAT 97; BMI 21.3
--- NOTE | 2024-03-10 13:04 | MHC.PC.OV ---
Vital Signs 03/10/24 13:04 Height 5 ft 1 in Weight 113 lb BMI 21.3 BP 128/72 Blood Pressure Location Lt brachial Position Sitting Pulse 75 Pulse Source Pulse Oximeter Pulse Oximetry (%) 97 Oxygen Delivery Method Room Air Intake Visit Reasons: Blood pressure, weight loss, Allergies Codeine-Guaifenesin Allergy (Unknown, Uncoded 03/10/24 13:04) rash shellfish Adverse Reaction (Mild, Uncoded 03/10/24 13:04) upset stomach Tobacco use date assessed: 03/10/24 Fall risk assessment: No Falls in past year Last assessed Fall Risk: 03/10/24 Dental Screening Dental Screen Date: 03/10/24 Did you have a dental visit in the last 12 months?: Yes Did you have a dental problem in the last 6 months where you did not have access to dental care?: No Was dental information given to patient?: Patient has dentist HPI Blood pressure, weight loss, HPI Details The patient is a 74-year-old female presenting for a wellness visit. Her medical history is significant for osteoporosis, vitamin B12 elevation, hypertension, hypocalcemia, and resolved anemia. The patient underwent routine blood work on November 24, revealing normal hemoglobin levels, resolving previous anemia, and normal kidney and liver functions. Electrolytes, including sodium and potassium, were normal, and glucose levels were stable. Her lipid panel showed controlled cholesterol levels, especially favorable high-density lipoprotein (HDL) levels at 69 mg/dL, surpassing the target of 50 mg/dL. Low-density lipoprotein (LDL) cholesterol levels were well below the desired threshold, contributing to cardiac protection. The patient reported adhering to a regular workout regimen, including weightlifting, and remains physically active, with focused efforts to maintain hydration. She experienced a weight anomaly, previously noted at 104 pounds, attributed potentially to calcium supplementation. She has since ceased this supplementation, suspecting a connection with the weight change. The patient's review did note an elevated vitamin B12 level, minorly above the typical range attributable to dietary intake of [id number]-[id number] foods. Her use of B12 supplements was minimal, indicating dietary sources as the likely cause. Calcium intake was under review due to diagnosed osteoporosis and weak bones, discovered via previous bone densitometry. The patient has paused additional bone supplements but remains on vitamin D, reported as adequate. Family history reveals her mother suffered a fracture later in life, but no early familial fracture history was noted. Her cardiovascular examination corroborated satisfactory home-measured blood pressure readings at 131/74 mmHg, with even lower readings recorded in the current clinical setting. Current precautions against respiratory illnesses, especially influenza, COVID-19, and RSV, are emphasized due to rising communal transmission rates. The patient has received all recommended vaccinations but acknowledges the necessity of maintaining vigilance regarding health safety practices. PENDING SALE TO [facility] Medical History (Updated 11/24/23 @ 10:59 by Mariana Stone MD) Screening for diabetes mellitus Preop exam for internal medicine Osteoporosis GERD (gastroesophageal reflux disease) Hypothyroid Surgical History History of tonsillectomy and adenoidectomy Social History (Updated 11/24/23 @ 10:49 by Mariana Stone MD) Housing: House Alcohol intake: current Alcohol intake frequency: holidays/special occasions only Comment: once a year glass Patient Tobacco Use Status: Never used Tobacco Tobacco use type: Cigarette e-Cigarette/Vaping Use: Never Used Second Hand Smoke Exposure: No service: No Current occupational status: retired Cognitive needs: No Hearing needs: No Vision needs: Yes Questionnaire PHQ-9 Over the last 2 weeks, how often have you been bothered by any of the following problems? 1. Little interest or pleasure in doing things: not at all 2. Feeling down, depressed, or hopeless: not at all 3. Trouble falling or staying asleep, or sleeping too much: not at all 4. Feeling tired or having little energy: not at all 5. Poor appetite or overeating: not at all 6. Feeling bad about yourself - or that you are a failure or have let yourself or your family down: not at all 7. Trouble concentrating on things, such as reading the newspaper or watching television: not at all 8. Moving or speaking so slowly that other people could have noticed. Or the opposite - being so fidgety or restless that you have been moving around a lot more than usual: not at all 9. Thoughts that you would be better off or of hurting yourself in some way: not at all Total score: 0 Depression Screening Interpretation: Negative Depression Screening Done: Yes Source: Developed by Drs. Lizandro Vergara, Laila Feliberto Rosales and colleagues, with an educational milton from [employer]. Thrive Questionnaire Date Thrive assessed: 03/10/24 I am a: Patient What is your living situation today?: I have a steady place to live Within the past 12 months, did the food you bought not last and you didn't have the money to get more?: Never true Within the past 12 months, did you worry whether your food would run out before you got money to buy more?: Never true Do you have trouble paying for medicines?: No Do you have trouble getting transportation to medical appointments?: No Do you have trouble paying your heating and electricity bill?: No Do you have trouble taking care of your child, family member or friend?: No Do you have trouble with day-to-day activities such as bathing, preparing meals, shopping, managing finances, etc.?: No Are you currently unemployed and looking for a job?: No Are you interested in more education?: No Please select the resources that you would like help with: None Currently or been in a relationship where the following occur: No concerns reported THRIVE Score: 0 AUDIT C Alcohol Use Questionnaire (AUDIT-C) 2. How many drinks containing alcohol do you have on a typical day when you are drinking?: 1 or 2 3. How often do you have six or more drinks on one occasion?: Never Total Score: 0 SAMANTHA-7 AMB Questionnaire SAMANTHA-7 Date SAMANTHA - 7 assessed: 03/10/24 Feeling nervous, anxious, or on edge: 0 = Not at all Not being able to stop or control worryin = Not at all Worrying too much about different things: 0 = Not at all Trouble relaxin = Not at all Being so restless that it is hard to sit still: 0 = Not at all Becoming easily annoyed or irritable: 0 = Not at all Feeling afraid as if something awful might happen: 0 = Not at all Total SAMANTHA-7 score (0-4 normal; 5-9 mild; 10-14 moderate; 15-21 severe): 0 Source: Developed by Drs. Lizandro Vergara, Feliberto Asher and colleagues, with an educational milton from [employer]. Physical exam (Primary Care) Vital Signs: Last Vital Signs Pulse 75 03/10/24 13:04 BP 128/72 03/10/24 13:04 Pulse Ox 97 03/10/24 13:04 Oxygen Delivery Method Room Air 03/10/24 13:04 BMI result Body Mass Index 21.3 Tobacco/Smoking Status: Tobacco use Status Tobacco use date assessed 03/10/24 03/10/24 13:10 Patient Tobacco Use Status Never used Tobacco 03/10/24 13:10 Tobacco use type Cigarette 03/10/24 13:10 e-Cigarette/Vaping Use Never Used 03/10/24 13:10 PHQ-9: PHQ-9 Score PHQ-9: Total score 0 03/10/24 13:24 Depression Screening Interpretation: Negative Thrive Assessment: Date of Thrive Assessment Date Thrive assessed 03/10/24 03/10/24 13:10 Currently or been in a relationship where the following occur: No concerns reported Const General: alert; No acute distress Eyes Conjunctivae: conjunctivae normal Resp Auscultation: clear to auscultation bilaterally Cardio Rate: regular rate Rhythm: regular rhythm GI Inspection: Yes normal to inspection Extrem General: Yes normal to inspection and No edema Coding Level of Care Code Est Pt Level 4 (21387) Diagnoses Age-related osteoporosis without current pathological fracture M81.0 Osteoporosis type: age-related Presence of current pathological fracture: without current pathological fracture Gastroesophageal reflux disease without esophagitis K21.9 Esophagitis presence: without esophagitis Acquired hypothyroidism E03.9 Hypothyroidism type: acquired Assessment & Plan Assessment & Plan (1) Osteoporosis: Code(s): M81.0 - Age-related osteoporosis without current pathological fracture Category: Medical Qualifiers: Osteoporosis type: age-related Presence of current pathological fracture: without current pathological fracture Qualified Code(s): M81.0 - Age-related osteoporosis without current pathological fracture (2) GERD (gastroesophageal reflux disease): Code(s): K21.9 - Gastro-esophageal reflux disease without esophagitis Category: Medical Qualifiers: Esophagitis presence: without esophagitis Qualified Code(s): K21.9 - Gastro-esophageal reflux disease without esophagitis (3) Hypothyroid: Code(s): E03.9 - Hypothyroidism, unspecified Category: Medical Qualifiers: Hypothyroidism type: acquired Qualified Code(s): E03.9 - Hypothyroidism, unspecified Plan - Continue to focus on preventive care, emphasizing adequate hydration, a balanced diet, and regular physical activity. - Monitor vitamin levels; recommend maintaining awareness of dietary sources. - Continue management of osteoporosis with a focus on dietary calcium intake and vitamin D maintenance, considering medication to decrease fracture risk as needed. - Monitor blood pressure closely; continue current hypertension management, given the current satisfactory control. - Reinforce fall prevention strategies, advising care with environmental hazards to minimize fracture risk. - Encourage seasonal and respiratory illness precautions, emphasizing hand hygiene and limiting exposure to ill contacts.
== END 2024-03-10 15:14 | disposition home or self-care (01) ==
PROVIDERS: PCP Internal Medicine; Visit Provider Internal Medicine
DX: M81.0 Age-related osteoporosis without current pathological fracture (principal); K21.9 Gastro-esophageal reflux disease without esophagitis; E03.9 Hypothyroidism, unspecified

== ENCOUNTER → 2024-03-10 12:59 | Outpatient (BNVA) | payer MEDICARE, OTHER, SELFPAY | PROVIDERS: PCP Internal Medicine; Visit Provider Internal Medicine | DX: M81.0 Age-related osteoporosis without current pathological fracture (principal); K21.9 Gastro-esophageal reflux disease without esophagitis; E03.9 Hypothyroidism, unspecified | CPT/HCPCS: 99212 ==

== ENCOUNTER 2024-04-02 22:17 | Inpatient (IN) | payer MEDICARE, OTHER, SELFPAY ==
--- NOTE | ~2024-04-02 | XR_ITS ---
EXAMINATION: XR PELVIS CLINICAL INFORMATION: rt hip deidra COMPARISON: 04/02/2024. TECHNIQUE: AP view of the pelvis. FINDINGS: Interval right hip hemiarthroplasty. The femoral component is anatomically aligned and appears well seated without complication. Mild arthritis in the left hip. Skin arianna overlie the right hip with subcutaneous gas present. XR/XR pelvis 1-2V IMPRESSION: Post hip right hemiarthroplasty without complication. Electronically signed by: Leonidas Pugh MD 04/04/2024 01:46 PM [facility]
--- NOTE | ~2024-04-02 | XR_ITS ---
CLINICAL HISTORY: trauma 2 view right femur Comparison: None Findings: Acute right femoral neck fracture with 90 degrees angulation (apex directed laterally). Mild superior displacement of the major fragment containing majority of the right femur. No definite intra-articular extension or intertrochanteric extension by radiographs. Portions of the hip are obscured with [id number] osteoarthritis and without definite dislocation. Majority of the pelvis is obscured. Degenerative changes include the partially imaged knee without dislocation of the right knee and likely moderate effusion. IMPRESSION: Acute femoral neck fracture This document has been electronically signed by: Timothy Garcia MD on 04/03/2024 00:29:04
--- NOTE | ~2024-04-02 | XR_ITS ---
CLINICAL HISTORY: preop 1 view chest x-ray Comparison: None Findings: No consolidation or effusion. No pneumothorax. Cardiac silhouette and mediastinal contours are within normal limits for AP technique. Degenerative changes include imaged shoulders and AC joints. Right lateral clavicle deformity appears old. Superficial opacities noted. IMPRESSION: No consolidation. This document has been electronically signed by: Timothy Garcia MD on 04/03/2024 02:48:10
[2024-04-02 22:32] VITALS: BP 148/76; BP 172/70; PULSE 106; RESP 16; TEMP 36.5; O2SAT 95; O2SAT 97; BMI 20.1
--- NOTE | 2024-04-02 23:35 | ED_ITS ---
HPI - Fall General Chief Complaint: Fall Stated Complaint: Rt leg injury Time Seen by Provider: 04/02/24 23:03 Source: patient Limitations: no limitations History of Present Illness ED Provider: Bri Sanford PA-C HPI Narrative: 74-year-old female with a history of osteoporosis, hypothyroidism, GERD presents after fall at home. 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 Patient complains of severe right mid femur pain. She did not hit her head, there was no loss consciousness, she does not use a blood thinner. She denies knee or pelvic pain. The pain is focal. Related Data Home Medications ?Medication ?Instructions ?Recorded ?Confirmed PLANT BASE RED ALgae Calcium 300 mg PO .3 tabs QD 07/31/21 11/24/23 Vitamin b plus PO .QD 07/31/21 11/19/22 ascorbic acid (vitamin C) 500 mg mg PO 07/31/21 11/24/23 capsule omega 3 5 ml PO .QD 07/31/21 11/24/23 heartburn Sooth PO 11/24/23 11/24/23 Previous Rx's ?Medication ?Instructions ?Recorded cholecalciferol (vitamin D3) 50 50 mcg PO DAILY #30 caps 05/07/20 mcg (2,000 unit) capsule thyroid (pork) 60 mg tablet 60 mg PO DAILY #90 tabs 12/27/23 ([facility]) Allergies Allergy/AdvReac Type Severity Reaction Status Date / Time Codeine-Guaifenesin Allergy Unknown rash Uncoded 04/02/24 22:34 shellfish AdvReac Mild upset Uncoded 04/02/24 22:34 stomach Review of Systems Review of Systems: Yes all other systems are reviewed and are negative Constitutional: Constitutional: Denies fatigue and Denies fever(s) Musculoskeletal: Musculoskeletal: Denies deformity Comments: Femur pain Endocrine: Endocrine: Denies fatigue PMFSH Past Medical History Attestation statement: The following information was validated with the patient. Medical History (Updated 04/03/24 @ 00:54 by JERO Crawford) Screening for diabetes mellitus Preop exam for internal medicine Osteoporosis GERD (gastroesophageal reflux disease) Hypothyroid Surgical History History of tonsillectomy and adenoidectomy Social History Social History (Updated 11/24/23 @ 10:49 by Mariana Stone MD) Housing: House Alcohol intake: never Comment: once a year glass Patient Tobacco Use Status: Never used Tobacco Tobacco use type: Cigarette e-Cigarette/Vaping Use: Never Used Second Hand Smoke Exposure: No Use of substances other than those prescribed or required for medical reasons: No Advance Directives: No Advance Directives Information Provided: Yes Do you have a plan to hurt others: No Plan service: No Current occupational status: retired Cognitive needs: No Hearing needs: No Vision needs: Yes Physical Exam Vital Signs: Vital Signs: Last Vital Signs Temp 97.7 F 04/02/24 23:49 Pulse 106 H 04/02/24 23:49 Resp 16 04/02/24 23:49 BP 148/76 H 04/02/24 23:49 Pulse Ox 97 04/02/24 23:49 O2 Del Method Room Air 04/02/24 22:32 BMI result Body Mass Index 20.1 Const: Other: Alert well-appearing no sign of head trauma on exam Resp: Other: Nonlabored respirations Cardio: Other: Normal peripheral perfusion Skin: Other: Warm dry no rash Extrem: Other: No deformity noted over the entire right lower extremity. With forceful palpation there is focal pain mid femur, there was no palpable pain superiorly over the hip or pelvis or inferiorly at the knee, she can flex and extend the knee Psych: Other: Cooperative Course Consultations Consultation #1: [facility], they advise to admit to medicine, NPO, I spoke with Mahogany Roach.. I will also be placing orders for screening labs coags, type and screen and screening chest x-ray and EKG Time: 00:39 Medications Administered Discontinued Medications Generic Name Dose Route Start Last Admin Trade Name Freq PRN Reason Stop Dose Admin Acetaminophen 975 mg 04/02/24 23:04/02/24 23:41 Acetaminophen 325 Mg Tablet PO 04/02/24 23:10 975 mg ONCE ONE Administration Ibuprofen 600 mg 04/02/24 23:09 04/02/24 23:42 Ibuprofen 600 Mg Tablet PO 04/02/24 23:10 600 mg ONCE ONE Administration Medical Decision Making Medical Decision Making MDM Narrative: 74-year-old female with a history of osteoporosis, hypothyroidism, GERD presents after fall at home. 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 Patient complains of severe right mid femur pain. She did not hit her head, there was no loss consciousness, she does not use a blood thinner. She denies knee or pelvic pain. The pain is focal. Problem: Osteoporosis History: Per patient I have considered the following differential diagnoses: Fracture, dislocation, contusion, sprain Plan: We will be obtaining an x-ray and giving ibuprofen and Tylenol. I have independently reviewed the following tests: X-ray right femur:Findings: Acute right femoral neck fracture with 90 degrees angulation (apex directed laterally). Mild superior displacement of the major fragment containing majority of the right femur. No definite intra-articular extension or intertrochanteric extension by radiographs. Portions of the hip are obscured with [id number] osteoarthritis and without definite dislocation. Majority of the pelvis is obscured. Degenerative changes include the partially imaged knee without dislocation of the right knee and likely moderate effusion. IMPRESSION: Acute femoral neck fracture This document has been electronically signed by: Timothy Garcia MD on 04/03/2024 00:29:04 Discharge Plan Discharge Prescriptions: No Action [facility] Thyroid 60 mg tablet 60 mg PO DAILY Qty: 90 1RF cholecalciferol (vitamin D3) 50 mcg (2,000 unit) capsule 50 mcg PO DAILY Qty: 30 0RF ascorbic acid (vitamin C) 500 mg capsule PO PLANT BASE RED ALgae Calcium 300 mg PO .3 tabs QD Vitamin b plus PO .QD omega 3 5 ml PO .QD heartburn Sooth PO Print Language: Beninese
[2024-04-02] MEDS: Acetaminophen 325 MG TABLET 975 MG PO (23:41)
[2024-04-02] MEDS: Ibuprofen 600 MG TABLET PO (23:42)
[2024-04-02 23:49] VITALS: BP 148/76; PULSE 106; RESP 16; TEMP 36.5; O2SAT 97
--- NOTE | 2024-04-02 23:51 | PC.NURSE ---
pt medicated for pain and then taken to radiology
[2024-04-03] VITALS (7 sets, daily range): BP systolic 144–166; BP diastolic 70–80; PULSE 83–98; RESP 14–16; TEMP 36–37.4; O2SAT 94–96
--- NOTE | 2024-04-03 00:41 | ECG_ITS ---
Test Reason : PREOP Blood Pressure : */* mmHG Vent. Rate : 95 BPM Atrial Rate : 95 BPM P-R Int : 184 ms QRS Dur : 86 ms QT Int : 356 ms P-R-T Axes : 59 -14 43 degrees QTcB Int : 447 ms Normal sinus rhythm with sinus arrhythmia Normal ECG When compared with ECG of 21-Nov-2013 13:47, No significant change was found Referred By: Bri Sanford Electronically Signed By: DOLLY HUBBARD MD
[2024-04-03 01:39] LABS: Basophils Percent Auto 0.2 % (0-2); Eosinophils Absolute Auto 0.1 X10*3/uL (0.0-0.4); Eosinophils Percent Auto 0.6 % (0-4); Hematocrit 37.9 % (37.0-47.0); Hemoglobin 12.9 g/dl (12.0-16.0); Imm Gran Abs Auto 0.08 X10*3/uL (0.00-0.03); Imm Gran Pct Auto 0.5 % (0.0-0.4); Lymphocytes Absolute Auto 1.6 X10*3/uL (1.2-4.9); Lymphocytes Percent Auto 9.2 % (20-40); MANUAL DIFF FLAG SCAN; Mean Corpuscular Hemoglobin 28.8 pg (27.0-33.0); Mean Corpuscular Volume 84.6 fL (80.0-98.0); Mean Platelet Volume 8.5 fL (9.4-12.3); Monocytes Absolute Auto 1.9 X10*3/uL (0.1-1.2); Neutrophils Absolute Auto 13.6 x10*3/uL (2.0-8.3); Neutrophils Percent Auto 78.5 % (45-73); Platelet Count 233 X10*3/uL (160-400); Red Blood Count 4.48 X10*6/uL (4.20-5.50); Red Cell Distribution Width 12.9 % (11.0-16.0); SCAN SMEAR FLAG 1; White Blood Count 17.3 X10*3/uL (4.8-10.8)
[2024-04-03 01:51] LABS: INTERNATIONAL NORM RATIO 1.1 (0.9-1.1); Prothrombin Time 12.5 SEC (10.9-12.4)
[2024-04-03 01:54] LABS: Anion Gap 14 (12-20); Blood Urea Nitrogen 16 mg/dL (9-16); Calcium 8.8 mg/dL (8.4-10.2); Carbon Dioxide 22 mmol/L (22-29); Chloride 107 mmol/L (96-108); Creatinine Clr Calc Pharmacy 48.3; Estimated Glomerular Filt Rate > 60; Glucose Random 128 mg/dL (60-115); Magnesium 1.8 mg/dL (1.6-2.6); Potassium 3.8 mmol/L (3.3-5.1); Sodium 139 mmol/L (135-145)
[2024-04-03 02:06] LABS: SLIDE REVIEW VERIFIED
--- NOTE | 2024-04-03 02:23 | PM.IMHP ---
History of Present Illness Date of Service: 04/03/24 Attending physician on admission: John Morejon Chief Complaint: Right hip pain after a fall this evening Patient is a 73 year old pleasant white female with history of hypothyroidism and osteoporosis brought in by EMS accompanied by her for evaluation of right hip pain following a mechanical fall at home. She was at the kitchen sink and then turned to go to the living room but tripped and fell. Her was close by when this happened. She did not hit her head nor did she loose consciousness. Her states that it took him an hour to get her up from the floor to the couch. They though about waiting till the morning to come to the emergency room but she was in a lot of pain and so her called EMS and had her brought in. Initial work up done here included a plain x-ray of the right hp which showed an acute right femoral neck fracture. Admission was requested for continued care. Review of Systems Review of Systems: Yes all other systems are reviewed and are negative [facility] Medical History (Updated 04/03/24 @ 03:00 by John Morejon MD) Screening for diabetes mellitus Preop exam for internal medicine Osteoporosis GERD (gastroesophageal reflux disease) Hypothyroid Functional capacity: independent ambulation Patient : No Surgical History History of tonsillectomy and adenoidectomy Social History (Updated 11/24/23 @ 10:49 by Mariana Stone MD) Housing: House Alcohol intake: never Comment: once a year glass Patient Tobacco Use Status: Never used Tobacco Tobacco use type: Cigarette e-Cigarette/Vaping Use: Never Used Second Hand Smoke Exposure: No service: No Current occupational status: retired Cognitive needs: No Hearing needs: No Vision needs: Yes Meds Allergies Allergy/AdvReac Type Severity Reaction Status Date / Time Codeine-Guaifenesin Allergy Unknown rash Uncoded 04/02/24 22:34 shellfish AdvReac Mild upset Uncoded 04/02/24 22:34 stomach Home Medications ?Medication ?Instructions ?Recorded ?Confirmed ?Last Taken ?Type PLANT BASE RED ALgae Calcium 300 mg PO .3 tabs QD 07/31/21 11/24/23 Unknown History Vitamin b plus PO .QD 07/31/21 11/19/22 Unknown History ascorbic acid (vitamin C) 500 mg mg PO 07/31/21 11/24/23 Unknown History capsule omega 3 5 ml PO .QD 07/31/21 11/24/23 Unknown History heartburn Sooth PO 11/24/23 11/24/23 Unknown History Physical Exam Vital Signs and Narrative: Vital Signs: Last Vital Signs Temp 97.7 F 04/02/24 23:49 Pulse 106 H 04/02/24 23:49 Resp 16 04/02/24 23:49 BP 148/76 H 04/02/24 23:49 Pulse Ox 97 04/02/24 23:49 O2 Del Method Room Air 04/02/24 22:32 BMI result Body Mass Index 20.1 General: Well nourished. Awake and alert. In no obvious respiratory distress. Psychiatric: Pleasant, well kempt, cooperative with normal thought process, speech, cognition and affect. HEENT: Normocephalic, atraumatic. No pallor or jaundice. Moist oral mucus membranes. Neck: Supple. No JVD Lungs: Clear to auscultation bilaterally. No rales, rhonchi or wheezes Heart: RRR. Normal s1/s2. No murmurs, rubs or gallops. No peripheral edema. Abdomen: Scaphoid, Soft, non-tender. Normoactive bowel sounds. No visceromegaly. Genitourinary: Deferred Back/Spine/Pelvis: Deferred Skin: Warm, dry, well perfused. Normal turgor. No mottling. Normal capillary refill (< 2 seconds). Neurologic: Awake and alert. Intact speech & cognition. Normal gait & balance. CN II-XII grossly normal. Extremities: RLE is shortened and externally rotated. Limited ROM at right hip. LLE with no abormalities. Results Labs 04/03/24 01:33 04/03/24 01:33 Labs: Laboratory Results - last 24 hr 04/03/24 01:33 MCV 84.6 MCH 28.8 MCHC 34.0 RDW 12.9 Plt Count 233 MPV 8.5 L Immature Gran % (Auto) 0.5 H Neut % (Auto) 78.5 H Lymph % (Auto) 9.2 L [place] % (Auto) 11.0 Eos % (Auto) 0.6 Baso % (Auto) 0.2 Lymph # (Auto) 1.6 [place] # (Auto) 1.9 H Eos # (Auto) 0.1 Baso # (Auto) 0.0 Abs Immat Gran (auto) 0.08 H Absolute Neuts (auto) 13.6 H Absolute Nucleated RBC 0.000 Nucleated RBC % (auto) 0.0 Smear Tech's Comments VERIFIED PT 12.5 H INR 1.1 Anion Gap 14 Estim Creat Clear Calc 48.3 Estimated GFR > 60 Random Glucose 128 H Calcium 8.8 D Magnesium 1.8 Blood Type A Negative Antibody Screen NEGATIVE Imaging Radiologist's Impressions: X-ray of the right femur Acute right femoral neck fracture with 90 degrees angulation (apex directed laterally). Assessment and Plan (1) Closed fracture of neck of right femur: Qualifiers: Encounter type: initial encounter Qualified Code(s): S72.001A - Fracture of unspecified part of neck of right femur, initial encounter for closed fracture Status: Acute (2) Pre-op evaluation: Status: Acute (3) Hypothyroid: Qualifiers: Hypothyroidism type: acquired Qualified Code(s): E03.9 - Hypothyroidism, unspecified Status: Acute (4) Leukocytosis: Status: Acute Plan 73 year old pleasant white female with history of hypothyroidism and osteoporosis here with: 1. Acute right femoral neck fracture - following an accidental fall - admit for surgical management - keep NPO 2. Pre-operative evaluation - she has excellent functional status - able to ambulate a block or up a flight of stairs freely - she works out in the gym 5 days a week - she has no cardiac or pulmonary issues - calculated HAYWARD luis daniel-operative risk for JULIANNA is 0% - calculated ARISCAT score of 3 points conferring a low risk (1.6%) of in-hospital post-operative pulmonary complications - reviewed EKG and chest x-ray - ok to proceed with surgery with no additional cardiac or pulmonary work-up 3. Hypothyroidism - stable - resume Levothyroxine 4. Leukocytosis - WBC count of 17 K - reactive 2/2 stress - monitor Total time managing care of this patient today: 75 minutes. Quality Stroke Does the patient have a stroke diagnosis?: No VTE Prior VTE?: No VTE Risk Level:: Medical - moderate - high VTE Device Contraindication: N/A - Device Ordered VTE Drug Contraindication: N/A - Med Ordered
--- NOTE | 2024-04-03 02:47 | PC.NURSE ---
dr kwok placed two different ivf and tiger sent to see which one he wants. LR or D5 LR
[2024-04-03] MEDS: Dextrose 5 % and Lactated Ring 1,000 ML 125 ML IVCONT ×3 (03:00→20:51)
--- NOTE | 2024-04-03 03:10 | PC.NURSE ---
verbal order to start the d5 LR. per dr kwok.
[2024-04-03] MEDS: HYDROmorphone HCl 0.5 MG/0.5 ML SYRINGE IVPUSH (03:16)
--- NOTE | 2024-04-03 03:17 | PC.NURSE ---
ginna roy sup for ivf needed D5 LR
--- NOTE | 2024-04-03 07:36 | PM.HPOR ---
History of Present Illness History of Present Illness Date of Service: 04/03/24 Chief complaint: Acute Right Femoral Neck Fracture Narrative: Alis Ballesteros is a 74 year old female with a PMH significant for hypothyroidism and osteoporosis who presented to the ED after sustaining a mechanical fall yesterday evening. She lives at home with her . Does not use any assistive devices for ambulation. While in the ED x-rays were obtained of the right hip and pelvis. The patient was found to have a right hip femoral neck fracture. She was admitted to the medicine service for further evaluation and treatment. Review of Systems Review of Systems: Yes all other systems are reviewed and are negative PMFSH Past Medical History Medical History (Updated 04/03/24 @ 03:00 by John Morejon MD) Screening for diabetes mellitus Preop exam for internal medicine Osteoporosis GERD (gastroesophageal reflux disease) Hypothyroid Surgical History Surgical History History of tonsillectomy and adenoidectomy Social History Social History (Updated 11/24/23 @ 10:49 by Mariana Stone MD) Housing: House Alcohol intake: never Comment: once a year glass Patient Tobacco Use Status: Never used Tobacco Tobacco use type: Cigarette e-Cigarette/Vaping Use: Never Used Second Hand Smoke Exposure: No Use of substances other than those prescribed or required for medical reasons: No Advance Directives: No Advance Directives Information Provided: Yes Do you have a plan to hurt others: No Plan Patient : No service: No Current occupational status: retired Cognitive needs: No Hearing needs: No Vision needs: Yes Meds Allergies Allergy/AdvReac Type Severity Reaction Status Date / Time Codeine-Guaifenesin Allergy Unknown rash Uncoded 04/02/24 22:34 shellfish AdvReac Mild upset Uncoded 04/02/24 22:34 stomach Active Medications: Current Medications Acetaminophen (Acetaminophen 325 Mg Tablet) 650 mg PO Q6H PRN PRN Reason: Pain, Mild 1-3,fever,headache Calcium Carbonate (Calcium Carbonate 750 Mg Tab.Chew) 750 mg PO Q4H PRN PRN Reason: Heartburn Heparin Sodium (Porcine) (Heparin Sodium,Porcine 5,000 Unit/Ml Vial) 5,000 unit SUBCUT Q8H [facility] Hydromorphone HCl (Hydromorphone Hcl 1 Mg/Ml Syringe) 0.5 mg IVPUSH Q4H PRN; Protocol PRN Reason: Pain, Severe (Pain Scale 7-10) Dextrose/Lactated Ringer's (D5lr) 1,000 mls @ 125 mls/hr IVCONT .Q8H [facility] Last Admin: 04/03/24 03:00 Dose: 125 mls/hr Lactated Ringer's (Lr) 1,000 mls @ 125 mls/hr IVCONT .Q8H [facility] Last Admin: 04/03/24 04:47 Dose: Not Given Magnesium Hydroxide (Milk Of Magnesia 30 Ml Oral.Susp) 30 ml PO DAILY PRN PRN Reason: Constipation Melatonin (Melatonin 3 Mg Tablet) 6 mg PO BEDTIME PRN PRN Reason: Insomnia Ondansetron HCl (Ondansetron Hcl 4 Mg/2 Ml Vial) 4 mg IVPUSH Q8H PRN PRN Reason: Nausea and Vomiting Oxycodone HCl (Oxycodone Hcl Immed Release 5 Mg Tablet) 5 mg PO Q6H PRN PRN Reason: Pain, Moderate(Pain Scale 4-6) Senna (Sennosides 8.6 Mg Tablet) 17.2 mg PO BEDTIME PRN PRN Reason: constipation Sodium Chloride (0.9 % Sodium Chloride Flush 3 Ml Syringe) 3 ml IVFLUSH QSHIFT [facility] Last Admin: 04/03/24 07:21 Dose: Not Given Home Medications ?Medication ?Instructions ?Recorded ?Confirmed ?Last Taken ?Type PLANT BASE RED ALgae Calcium 300 mg PO .3 tabs QD 07/31/21 11/24/23 Unknown History Vitamin b plus PO .QD 07/31/21 11/19/22 Unknown History ascorbic acid (vitamin C) 500 mg mg PO 07/31/21 11/24/23 Unknown History capsule omega 3 5 ml PO .QD 07/31/21 11/24/23 Unknown History heartburn Sooth PO 11/24/23 11/24/23 Unknown History thyroid (pork) 60 mg tablet 60 mg PO DAILY 04/03/24 Unknown History ([place] Thyroid) Physical Exam Vital Signs: Vital Signs: Last Vital Signs Temp 98.6 F 04/03/24 04:45 Pulse 92 04/03/24 04:45 Resp 16 04/03/24 04:45 BP 144/80 H 04/03/24 04:45 Pulse Ox 97 04/02/24 23:49 O2 Del Method Room Air 04/02/24 22:32 BMI result Body Mass Index 20.1 Const: General: cooperative, healthy appearing and no acute distress Resp: Effort & Inspection: normal respiratory effort and able to speak in complete sentences Cardio: Rate: regular rate Peripheral pulses: Peripheral pulses 2+ throughout GI: Palpation (GI): Soft to palpation Skin: Lesions: no lesions Rashes: no rashes Extrem: Other: RLE shortened and externally rotated. Pain with any attempt at movement. NVI. Results Labs 04/03/24 01:33 04/03/24 01:33 Labs: Abnormal lab results 04/03/24 Range/Units 01:33 WBC 17.3 H (4.8-10.8) X10*3/uL MPV 8.5 L (9.4-12.3) fL Immature Gran % (Auto) 0.5 H (0.0-0.4) % Neut % (Auto) 78.5 H (45-73) % Lymph % (Auto) 9.2 L (20-40) % [place] # (Auto) 1.9 H (0.1-1.2) X10*3/uL Abs Immat Gran (auto) 0.08 H (0.00-0.03) X10*3/uL Absolute Neuts (auto) 13.6 H (2.0-8.3) x10*3/uL PT 12.5 H (10.9-12.4) SEC Random Glucose 128 H (60-115) mg/dL H & H 04/03/24 Range/Units 01:33 Hgb 12.9 (12.0-16.0) g/dl Hct 37.9 (37.0-47.0) % Coagulation 04/03/24 Range/Units 01:33 INR 1.1 (0.9-1.1) All other labs normal. Assessment and Plan (1) Closed fracture of neck of right femur: Qualifiers: Encounter type: initial encounter Qualified Code(s): S72.001A - Fracture of unspecified part of neck of right femur, initial encounter for closed fracture Status: Acute (2) Osteoporosis: Qualifiers: Osteoporosis type: age-related Presence of current pathological fracture: without current pathological fracture Qualified Code(s): M81.0 - Age-related osteoporosis without current pathological fracture Status: Acute (3) Hypothyroid: Qualifiers: Hypothyroidism type: acquired Qualified Code(s): E03.9 - Hypothyroidism, unspecified Status: Acute Plan I discussed the case with Dr. Plasencia and explained the extent of the injury to the patient and options available which include surgical intervention. I explained the procedure in detail along with the length of recovery and rehab course. I explained the risk, benefits and alternatives. Risk including, but not limited to infection, blood clots, bleeding, non union or malunion and nerve/tissue damage to surrounding areas. I answered all their questions and with their understanding they have consented to move forward with Operative Fixation of the right hip. The patient will be T&S, med clearance obtained and remain NPO pending surgical planning. Quality Stroke Does the patient have a stroke diagnosis?: No VTE Prior VTE?: No VTE Risk Level:: Medical - moderate - high VTE Device Contraindication: N/A - Device Ordered VTE Drug Contraindication: N/A - Med Ordered Procedures Date of Service Date of Service: 04/03/24
--- NOTE | 2024-04-03 08:46 | PM.EVENT ---
Event Note Date of Service: 04/03/24 Event Note: Day Team Follow Up S Seen and examined Reports pain controlled with current regime Denies cadiopulmonary complaints O vitals - last documented and stable Gen - appears comfortable CVS - s1s2 Lungs - clear neuro - non-focal A/P 74 yo F presenting after mechanical fall resulting in R fem. neck fracture seen by ortho with plans for operative repair continue IVF and IV analgseics NPO Remainder per H&P Time Spent With Patient Time: Total time managing care of this patient today ____ minutes.
--- NOTE | 2024-04-03 09:07 | PHA.MEDREC ---
Addendum entered by Byron Muro RPh 04/03/24 12:55: Med rec was reviewed by Viral. Original Note: Pharmacy Consult ? Medication Reconciliation Pharmacy has completed the medication reconciliation. Spoke to patient to confirm med list. Patient states she only takes [place] Thyroid 60 mg. Patient states no OTC medications.
--- NOTE | 2024-04-03 09:24 | MHC.CM.PN ---
CM met with Patient and her /HCP/Vargas, in the ED, and addressed IMM with her, providing Patient with the original and a copy will be placed on the chart. Patient is agreeable to the initiation of a local SNF search, should PT recommend STR; CM has initiated and will follow for dc planning. will bring in a copy of the HCP; CM provided Patient with a blank HCP form, should there be any difficulty locating the HCP at home. PCP is Dr. DAS and Patient is likely to require BLS transport to [facility]. CM will follow.
[2024-04-03] MEDS: Heparin Sodium,Porcine 5,000 UNIT/ML VIAL 5000 UNIT SUBCUT ×2 (09:43→18:25)
--- NOTE | 2024-04-03 13:41 | HO.ANESPROP2 ---
HPI - Anesthesia Eval Consult details Narrative: 74 yo female patient for Right hip deidra-arthroplasty PMFSH Active Problems Active Problems: All Active Problems Leukocytosis (Acute) Closed fracture of neck of right femur following fall. No LOC Weight loss (Acute) Blood pressure elevated without history of HTN (Acute) Medicare annual wellness visit, subsequent (Acute) Colonoscopy refused (Acute) Post-menopausal (Acute) Mammogram declined (Acute) Colon cancer screening (Acute) Breast cancer screening by mammogram (Acute) Osteoporosis (Acute) GERD (gastroesophageal reflux disease) (Acute) Hypothyroid (Acute) Past Medical History Medical History (Updated 04/03/24 @ 14:26 by Marcie Aden MD) COVID Screening for diabetes mellitus Preop exam for internal medicine Osteoporosis GERD (gastroesophageal reflux disease) Hypothyroid Family History Family history of problems with anesthesia: No Surgical History Surgical History History of tonsillectomy and adenoidectomy History of Problems with Anesthesia: No Social History Social History Housing: House Are you a primary child care team lead to a significant other at home: No Do you presently have visiting nurse or other home services: No Alcohol intake: never Comment: once a year glass Patient Tobacco Use Status: Former Tobacco user Tobacco use type: Cigarette e-Cigarette/Vaping Use: Never Used Second Hand Smoke Exposure: No Advance Directives Date on File: 04/03/24 service: No Current occupational status: retired Cognitive needs: No Hearing needs: No Vision needs: Yes Meds Allergies Allergy/AdvReac Type Severity Reaction Status Date / Time Codeine-Guaifenesin Allergy Unknown rash Uncoded 04/03/24 14:12 shellfish AdvReac Mild upset Uncoded 04/03/24 14:12 stomach Active Medications: Current Medications Acetaminophen (Acetaminophen 325 Mg Tablet) 650 mg PO Q6H PRN PRN Reason: Pain, Mild 1-3,fever,headache Calcium Carbonate (Calcium Carbonate 750 Mg Tab.Chew) 750 mg PO Q4H PRN PRN Reason: Heartburn Heparin Sodium (Porcine) (Heparin Sodium,Porcine 5,000 Unit/Ml Vial) 5,000 unit SUBCUT Q8H [facility] Last Admin: 04/03/24 09:43 Dose: 5,000 unit Hydromorphone HCl (Hydromorphone Hcl 1 Mg/Ml Syringe) 0.5 mg IVPUSH Q4H PRN; Protocol PRN Reason: Pain, Severe (Pain Scale 7-10) Dextrose/Lactated Ringer's (D5lr) 1,000 mls @ 100 mls/hr IVCONT .Q10H [facility] Last Admin: 04/03/24 03:00 Dose: 125 mls/hr Magnesium Hydroxide (Milk Of Magnesia 30 Ml Oral.Susp) 30 ml PO DAILY PRN PRN Reason: Constipation Melatonin (Melatonin 3 Mg Tablet) 6 mg PO BEDTIME PRN PRN Reason: Insomnia Ondansetron HCl (Ondansetron Hcl 4 Mg/2 Ml Vial) 4 mg IVPUSH Q8H PRN PRN Reason: Nausea and Vomiting Oxycodone HCl (Oxycodone Hcl Immed Release 5 Mg Tablet) 5 mg PO Q6H PRN PRN Reason: Pain, Moderate(Pain Scale 4-6) Senna (Sennosides 8.6 Mg Tablet) 17.2 mg PO BEDTIME PRN PRN Reason: constipation Sodium Chloride (0.9 % Sodium Chloride Flush 3 Ml Syringe) 3 ml IVFLUSH QSHIFT [facility] Last Admin: 04/03/24 07:21 Dose: Not Given Home Medications ?Medication ?Instructions ?Recorded ?Confirmed ?Last Taken ?Type thyroid (pork) 60 mg tablet 60 mg PO DAILY@0600 04/03/24 04/03/24 04/02/24 History ([place] Thyroid) Exam Height,Weight and Vital Signs: Height 5 ft 2 in Weight 49.895 kg Last Vital Signs Temp 96.8 F 04/03/24 08:21 Pulse 83 04/03/24 08:21 Resp 16 04/03/24 08:21 BP 147/72 H 04/03/24 08:21 Pulse Ox 96 04/03/24 08:21 O2 Del Method Room Air 04/03/24 08:21 Pertinent Lab Results Pertinent Lab Results: Laboratory Tests 04/03/24 01:33 WBC 17.3 H RBC 4.48 Hgb 12.9 Hct 37.9 MCV 84.6 MCH 28.8 MCHC 34.0 RDW 12.9 Plt Count 233 MPV 8.5 L Immature Gran % (Auto) 0.5 H Neut % (Auto) 78.5 H Lymph % (Auto) 9.2 L [place] % (Auto) 11.0 Eos % (Auto) 0.6 Baso % (Auto) 0.2 Lymph # (Auto) 1.6 [place] # (Auto) 1.9 H Eos # (Auto) 0.1 Baso # (Auto) 0.0 Abs Immat Gran (auto) 0.08 H Absolute Neuts (auto) 13.6 H Absolute Nucleated RBC 0.000 Nucleated RBC % (auto) 0.0 Smear Tech's Comments VERIFIED PT 12.5 H INR 1.1 Sodium 139 Potassium 3.8 Chloride 107 Carbon Dioxide 22 Anion Gap 14 BUN 16 Creatinine 0.78 Estim Creat Clear Calc 48.3 Estimated GFR > 60 Random Glucose 128 H Calcium 8.8 D Magnesium 1.8 Blood Type A Negative Antibody Screen NEGATIVE Airway Mallampati Class: II TM Dist: >3cm Neck ROM: Full Loose/Missing/Broken Teeth: Yes (Missing molars. Caps intact. Denies broken or loose teeth) Heart: RRR Lungs: CTAB Assessment and Plan Assessment Anesthesia Assessment: Anesthesia Plan Discussed and Chart Reviewed Final Anesthetic Review Family History of Problems with Anesthesia: No History of Problems with Anesthesia: No NPO: Yes ASA Class: II and Emergency Final Preanesthetic Review: No Changes in Pt Med Stat, Meds/Allgs Chart Reviewed, Consent Obtained/Reviewed and Anes Risks/Benef Reviewed Patient Risk: Intermediate Procedure Risk: Intermediate Assessment/Block/Sedation in SS: Assess/Block/Sedation-SS Anesthetic Plan Anesthetic Plan: GA Disposition: Standard PACU and Inp. Admit - Standard Bed
[2024-04-03] MEDS: oxyCODONE HCl Immed Release 5 MG TABLET PO (13:43)
--- NOTE | 2024-04-03 14:58 | PC.NURSE ---
Patient into preop. Preop evaluation complete. Dr. Plasencia and Anesthesia at bedside. 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 Patient agreeable. Patient states she hasn't voided since last night, I feel like I could go . New order for desir cath placement. Desir placed by this nurse and Gayla rothop RN. Patient tolerated well. 500ml urine immediate void. Water given to patient, tolerated well. Report called to Doc ED RN. Patient to go to ED Back 6 until she gets a room. Transferred by otilio DOZIER.
[2024-04-03] MEDS: HYDROmorphone HCl 1 MG/ML SYRINGE 0.5 MG IVPUSH (15:57)
--- NOTE | 2024-04-03 19:23 | PC.NURSE ---
assumed care of pt at 191 report received from Estelita CARRANZA
--- NOTE | 2024-04-03 20:30 | PC.NURSE ---
upon taking over for patient the D5/LR pump was and iv fluids were not running. therefore pt not due for another bag
--- NOTE | 2024-04-03 20:31 | PC.NURSE ---
pt is sleeping comfortably on stretcher in hallway in no apparent distress, respirations even and unlabored. plan for surgery in AM, NPO at midnight.
--- NOTE | 2024-04-03 20:42 | PC.NURSE ---
pt denies any current pain. offered food but declines. plan of care ongoing
[2024-04-03] MEDS: ondansetron HCL 4 MG/2 ML VIAL IVPUSH (20:54)
[2024-04-04] VITALS (13 sets, daily range): BP systolic 86–161; BP diastolic 48–79; PULSE 75–109; RESP 15–20; TEMP 36.1–37.4; O2SAT 93–98; BMI 21.3
[2024-04-04] MEDS: Heparin Sodium,Porcine 5,000 UNIT/ML VIAL 5000 UNIT SUBCUT ×2 (04:18→17:58)
[2024-04-04] MEDS: Dextrose 5 % and Lactated Ring 1,000 ML 125 ML IVCONT ×2 (04:18→17:52)
--- NOTE | 2024-04-04 07:28 | MHC.SHP ---
Pre-Procedural Eval Section A - 24 Hr Update-Section A only Date of Service: 04/04/24 The patient is an INPATIENT: Yes Changes since office visit: No Cold of Flu in the past 2 weeks, No New Medical Problems, No Changes in Medication and No Patient answered all questions The patient has been examined within 24 hours of the surgical procedure. The History & Physical has been completed within 30 days and I have reviewed it.: Yes Section B - Complete if H&P > 30 days Chief Complaint: Acute Right Femoral Neck Fracture Allergies: Allergies Allergy/AdvReac Type Severity Reaction Status Date / Time Codeine-Guaifenesin Allergy Unknown rash Uncoded 04/03/24 14:12 shellfish AdvReac Mild upset Uncoded 04/03/24 14:12 stomach Plan I have reviewed the history and physical and performed a pertinent physical examination on my patient. No changes have occurred unless specified. Time Spent With Patient Time: Total time managing care of this patient today ____ minutes.
--- NOTE | 2024-04-04 08:20 | PC.NURSE ---
report given to RN in short stay - pt transporting to short stay at this time.
[2024-04-04] MEDS: Lactated Ringers 1,000 ML 50 ML IVCONT (09:05)
--- NOTE | 2024-04-04 11:20 | P.PNIM_ITS ---
Subjective Subjective Date of Service: 04/04/24 Interval History: f/u on hip fracuture had surgery today Physical Exam 2 Vital Signs: Vital Signs: Last Vital Signs Temp 99.4 F 04/04/24 08:38 Pulse 85 04/04/24 08:38 Resp 15 04/04/24 08:38 BP 152/79 H 04/04/24 08:38 Pulse Ox 95 04/04/24 08:38 O2 Del Method Room Air 04/04/24 08:38 BMI result Body Mass Index 20.1 Const: Other: General: AO X 3, no acute distress Resp: CTA bilateral CVS: S1,S2,RRR GI: +BS, NT, no distention Skin: No rash Neuro: motor grossly intact Psych: appropriate affect Objective Data Active Medications Acetaminophen (Acetaminophen 325 Mg Tablet) 650 mg PO Q6H PRN PRN Reason: Pain, Mild 1-3,fever,headache Calcium Carbonate (Calcium Carbonate 750 Mg Tab.Chew) 750 mg PO Q4H PRN PRN Reason: Heartburn Fentanyl (Fentanyl Citrate/Pf 100 Mcg/2 Ml Vial) 25 mcg IVPUSH Q5M PRN PRN Reason: Pain, Moderate to Severe (Pain Scale 4-10) Stop: 04/04/24 15:33 Heparin Sodium (Porcine) (Heparin Sodium,Porcine 5,000 Unit/Ml Vial) 5,000 unit SUBCUT Q8H [facility] Last Admin: 04/04/24 04:18 Dose: 5,000 unit Documented By: ARIEL Hydromorphone HCl (Hydromorphone Hcl 1 Mg/Ml Syringe) 0.5 mg IVPUSH Q4H PRN; Protocol PRN Reason: Pain, Severe (Pain Scale 7-10) Last Admin: 04/03/24 15:57 Dose: 0.5 mg Documented By: FERNANDO Dextrose/Lactated Ringer's (D5lr) 1,000 mls @ 100 mls/hr IVCONT .Q10H [facility] Last Admin: 04/04/24 04:18 Dose: 125 mls/hr Documented By: LUPIS-NEDA Lactated Ringer's (Lr) 1,000 mls @ 50 mls/hr IVCONT .Q20H [facility] Last Admin: 04/04/24 09:05 Dose: 50 mls/hr Documented By: HO.TURC Magnesium Hydroxide (Milk Of Magnesia 30 Ml Oral.Susp) 30 ml PO DAILY PRN PRN Reason: Constipation Melatonin (Melatonin 3 Mg Tablet) 6 mg PO BEDTIME PRN PRN Reason: Insomnia Naloxone HCl (Naloxone Hcl 0.4 Mg/Ml Vial) 0.04 mg IVPUSH Q5M PRN PRN Reason: Excessive sedation or RR < 8 Ondansetron HCl (Ondansetron Hcl 4 Mg/2 Ml Vial) 4 mg IVPUSH Q8H PRN PRN Reason: Nausea and Vomiting Last Admin: 04/03/24 20:54 Dose: 4 mg Documented By: ARIEL Ondansetron HCl (Ondansetron Hcl 4 Mg/2 Ml Vial) 4 mg IVPUSH ONCE PRN PRN Reason: Nausea and Vomiting Stop: 04/04/24 15:33 Oxycodone HCl (Oxycodone Hcl Immed Release 5 Mg Tablet) 5 mg PO Q6H PRN PRN Reason: Pain, Moderate(Pain Scale 4-6) Last Admin: 04/03/24 13:43 Dose: 5 mg Documented By: FERNANDO Senna (Sennosides 8.6 Mg Tablet) 17.2 mg PO BEDTIME PRN PRN Reason: constipation Sodium Chloride (0.9 % Sodium Chloride Flush 3 Ml Syringe) [facility] Last Admin: 04/04/24 01:15 Dose: Not Given Documented By: ARIEL Non-Admin Reason: IV Running Labs 04/03/24 01:33 04/03/24 01:33 Assessment and Plan (1) Hypothyroid: Status: Acute (2) Hip fracture: Status: Acute Plan 73 year old pleasant white female with history of hypothyroidism and osteoporosis here with: Acute right femoral neck fracture d/t accidental fall Surgical repair today Pain control DVT prophylaxis after surgery PT OT after surgery Hypothyroidism Levothyroxine Leukocytosis - WBC count of 17 K - reactive 2/2 stress - monitor DVT prophylaxis: lovenox after surgery Quality Stroke Does the patient have a stroke diagnosis?: No VTE Prior VTE?: No VTE Risk Level:: Medical - moderate - high VTE Device Contraindication: N/A - Device Ordered VTE Drug Contraindication: N/A - Med Ordered
--- NOTE | 2024-04-04 13:21 | PM.OP ---
Brief Operative Note Date of Service: 04/04/24 Pre-op diagnosis: Right femoral neck fracture Post-op diagnosis: same Procedure: Right VALLECILLO Implants: Alfa toribio C #5 and - unipolar Surgeon: Nelson Plasencia MD Anesthesia: GETA and local Was an Human Resources Benefits Manager used for this Procedure?: Yes Human Resources Benefits Manager: Neelima Lawson Estimated blood loss (mL): 200 IV fluids (mL): 750 Pathology: other Condition: stable Disposition: PACU
--- NOTE | 2024-04-04 13:23 | W.PM.OPN ---
Operative Note Operative Note Date of Service: 04/04/24 Narrative: Date of Service: 04/04/24 Pre-op diagnosis: Right femoral neck fracture Post-op diagnosis: same Procedure: Right VALLECILLO Implants: Strytkler accolade C #5 and -4/40 unipolar Surgeon: Nelson Plasencia MD Anesthesia: GETA and local Was an Quality Technician Fiberglass used for this Procedure?: Yes Quality Technician Fiberglass: Neelima Lawson Estimated blood loss (mL): 200 IV fluids (mL): 750 Pathology: other Condition: stable Disposition: PACU Procedure in detail: Patient was brought to the operative room placed in the lateral decubitus position. All bony prominences were well padded and the was prepped and draped in standard sterile fashion. IV antibiotics per weight were administered and a time-out was called to identify proper site proper procedure proper surgeon. Radiographs were available and confirmed. TXA was administered intravenously. I began by making a curvilinear incision over the posterolateral aspect of the greater trochanter. Dissection was taken down to the tensor fascia which was incised in line with the incision and a Charnley retractor was placed. The hip was internally rotated and the external rotators were identified. All vessels in the area were cauterized and a full-thickness capsular/external rotator layer was developed in a hockey-stick fashion starting just proximal to the piriformis. This layer was tagged and the displaced femoral neck fracture was identified. Clean-up cuts was performed while protecting the posterolateral soft tissues and the head was removed and measured (40 mm) on the back table. I then copiously irrigated the acetabulum and removed all bony fragments. Once this was done I used a cookie cutter to lateralize and a Charnley awl to identify the canal and then sequentially broached up to a 127 deg #5 but she had a capacious canal and I was down to the lesser with a #5 so I elected to retrial witha cemented stem. I was satisfied with the 5/0/40 monopolar. 2 bags of Simplex was mixed on the back table using 3rd gen technique. The canal was dried and a cement retrictor was placed distally. A centralizer was used and the stem was inserted in standard fashion using the patient's natural version. Once the cement was dry and all excess cement was removed I trialed a +4/0/-4 with a 40. I was most satisfied with the -40. These monopolar components were placed and the hip reduced. I was satisfied with the length and stability of the implants. My final bipolar components were then placed. I closed the capsular layer with FiberWire and then, after copious irrigation, I performed a layered closure with arianna on skin. The patient was placed in sterile dressing extubated brought to recovery room in stable condition there were no known complications.
--- NOTE | 2024-04-04 14:28 | MHC.CM.PN ---
Per MD rounds No discharge today. Patient scheduled for surgical intervention for Femoral Neck FX. DP STR pending PT EVAL, via BLS.
[2024-04-04 14:56] LABS: Hematocrit 36.6 % (37.0-47.0); Hemoglobin 11.9 g/dl (12.0-16.0); Mean Corpuscular HGB Conc 32.5 g/dl (31.0-35.0); Mean Corpuscular Hemoglobin 28.9 pg (27.0-33.0); Mean Corpuscular Volume 88.8 fL (80.0-98.0); Mean Platelet Volume 9.4 fL (9.4-12.3); Platelet Count 191 X10*3/uL (160-400); Red Blood Count 4.12 X10*6/uL (4.20-5.50); Red Cell Distribution Width 13.2 % (11.0-16.0); White Blood Count 15.8 X10*3/uL (4.8-10.8)
[2024-04-04] MEDS: 0.9 % Sodium Chloride Flush 3 ML SYRINGE IVFLUSH (17:52)
[2024-04-04] MEDS: ceFAZolin Sodium/Dextrose,Iso 2 GM/50 ML PIGGYBACK IV (17:59)
[2024-04-04 18:40] LABS: Anion Gap 10 (12-20); Blood Urea Nitrogen 9 mg/dL (9-16); Calcium 8.1 mg/dL (8.4-10.2); Carbon Dioxide 25 mmol/L (22-29); Chloride 108 mmol/L (96-108); Creatinine Clr Calc Pharmacy 59.8; Estimated Glomerular Filt Rate > 60; Glucose Random 136 mg/dL (60-115); Potassium 3.8 mmol/L (3.3-5.1); Sodium 139 mmol/L (135-145)
[2024-04-05] MEDS: Heparin Sodium,Porcine 5,000 UNIT/ML VIAL 5000 UNIT SUBCUT (00:34)
[2024-04-05] MEDS: Dextrose 5 % and Lactated Ring 1,000 ML 125 ML IVCONT (02:12)
[2024-04-05 03:49] VITALS: BP 157/71; PULSE 89; RESP 16; TEMP 36.8; O2SAT 98
--- NOTE | 2024-04-05 05:14 | PC.NURSE ---
Throughout the night patient did not accept any pain medication stating is comfortable and wants to sleep.
[2024-04-05] MEDS: Thyroid,Pork 30 MG TABLET 60 MG PO (05:30)
[2024-04-05 06:11] LABS: Hematocrit 31.4 % (37.0-47.0); Hemoglobin 10.6 g/dl (12.0-16.0); Mean Corpuscular HGB Conc 33.8 g/dl (31.0-35.0); Mean Corpuscular Hemoglobin 28.9 pg (27.0-33.0); Mean Corpuscular Volume 85.6 fL (80.0-98.0); Mean Platelet Volume 9.5 fL (9.4-12.3); Platelet Count 200 X10*3/uL (160-400); Red Blood Count 3.67 X10*6/uL (4.20-5.50); White Blood Count 13.8 X10*3/uL (4.8-10.8)
[2024-04-05 06:25] LABS: Anion Gap 10 (12-20); Blood Urea Nitrogen 8 mg/dL (9-16); Calcium 8.3 mg/dL (8.4-10.2); Carbon Dioxide 26 mmol/L (22-29); Chloride 109 mmol/L (96-108); Creatinine Clr Calc Pharmacy 59.1; Estimated Glomerular Filt Rate > 60; Glucose Random 110 mg/dL (60-115); Potassium 3.9 mmol/L (3.3-5.1); Sodium 141 mmol/L (135-145)
[2024-04-05 06:51] VITALS: BP 154/71; PULSE 89; RESP 16; TEMP 36.6; O2SAT 97
--- NOTE | 2024-04-05 07:28 | PM.PNORT ---
Subjective Subjective Date of Service: 04/05/24 Interval history: POD1 s/p right hip deidra Patient is resting in bed comfortably No overnight events Pain is managed No additional complaints Physical Exam Vital Signs: Vital Signs: Last Vital Signs Temp 98 F 04/05/24 06:51 Pulse 89 04/05/24 06:51 Resp 16 04/05/24 06:51 BP 154/71 H 04/05/24 06:51 Pulse Ox 97 04/05/24 06:51 O2 Del Method Nasal Cannula 04/05/24 06:51 O2 Flow Rate 2 04/05/24 06:51 BMI result Body Mass Index 21.3 Const: General: cooperative, healthy appearing and no acute distress Resp: Effort & Inspection: normal respiratory effort and able to speak in complete sentences Cardio: Rate: regular rate Peripheral pulses: Peripheral pulses 2+ throughout GI: Palpation (GI): Soft to palpation Skin: Lesions: no lesions Rashes: no rashes Extrem: Other: right hip dressing is c/d/i. Able to dorsi/plantar flex. Calf is supple and nontender. Sensation intact. Pedal pulse intact. Procedures Date of Service Date of Service: 04/05/24 Progress Note: A&P Assessment and plan (1) Closed fracture of neck of right femur: Status: Acute Plan Continue pain mgmnt Begin Lovenox for dvt ppx begin PT/OT for right hip deidra - WBAT, Posterior precuations Dispo planning-Pending PT eval, pain mgmnt, able to discharge to rehab once medicine clears Time Spent With Patient Time: Total time managing care of this patient today ____ minutes. Quality Stroke Does the patient have a stroke diagnosis?: No VTE Prior VTE?: No VTE Risk Level:: Medical - moderate - high VTE Device Contraindication: N/A - Device Ordered VTE Drug Contraindication: N/A - Med Ordered
[2024-04-05] MEDS: oxyCODONE HCl Immed Release 5 MG TABLET PO ×2 (08:11→15:14)
[2024-04-05] MEDS: 0.9 % Sodium Chloride Flush 3 ML SYRINGE IVFLUSH ×3 (08:12→20:53)
--- NOTE | 2024-04-05 08:45 | HO.POSTANES ---
Post Anesthesia Evaluation Post Anesthesia Evaluation Date of Service: 04/05/24 Vital Signs: Vital Signs Temp Pulse Resp BP Pulse Ox O2 Del Method O2 Flow Rate 04/05/24 06:51 98 F 89 16 154/71 H 97 Nasal Cannula 2 04/05/24 03:49 98.3 F 89 16 157/71 H 98 Nasal Cannula 2 04/04/24 23:40 97.3 F 83 16 161/70 H 97 Nasal Cannula 2 Anesthesia: General Mental Status: Awake Pain Control: Satisfactory Nausea/Vomiting: None Hydration: Adequate
--- NOTE | 2024-04-05 09:46 | P.PNIM_ITS ---
Subjective Subjective Date of Service: 04/05/24 Interval History: f/u on hip fracuture s/p repair 04/03 doing well post op Physical Exam 2 Vital Signs: Vital Signs: Last Vital Signs Temp 98 F 04/05/24 06:51 Pulse 89 04/05/24 06:51 Resp 16 04/05/24 06:51 BP 154/71 H 04/05/24 06:51 Pulse Ox 97 04/05/24 06:51 O2 Del Method Nasal Cannula 04/05/24 06:51 O2 Flow Rate 2 04/05/24 06:51 BMI result Body Mass Index 21.3 Const: Other: General: AO X 3, no acute distress Resp: CTA bilateral CVS: S1,S2,RRR GI: +BS, NT, no distention Skin: No rash Neuro: motor grossly intact Psych: appropriate affect Objective Data Active Medications Acetaminophen (Acetaminophen 325 Mg Tablet) 650 mg PO Q6H PRN PRN Reason: Pain, Mild 1-3,fever,headache Calcium Carbonate (Calcium Carbonate 750 Mg Tab.Chew) 750 mg PO Q4H PRN PRN Reason: Heartburn Enoxaparin Sodium (Enoxaparin Sodium 40 Mg/0.4 Ml Syringe) 40 mg SUBCUT Q24H ASHLEY Hydromorphone HCl (Hydromorphone Hcl 1 Mg/Ml Syringe) 0.5 mg IVPUSH Q4H PRN; Protocol PRN Reason: Pain, Severe (Pain Scale 7-10) Last Admin: 04/03/24 15:57 Dose: 0.5 mg Documented By: FERNANDO Cefazolin Sodium/Dextrose (Ancef) 2 gm in 50 mls @ 100 mls/hr IV POSTOP@1700 [facility] Last Infusion: 04/04/24 19:03 Dose: Infused Documented By: QUIRINO Magnesium Hydroxide (Milk Of Magnesia 30 Ml Oral.Susp) 30 ml PO DAILY PRN PRN Reason: Constipation Melatonin (Melatonin 3 Mg Tablet) 6 mg PO BEDTIME PRN PRN Reason: Insomnia Naloxone HCl (Naloxone Hcl 0.4 Mg/Ml Vial) 0.04 mg IVPUSH Q5M PRN PRN Reason: Excessive sedation or RR < 8 Ondansetron HCl (Ondansetron Hcl 4 Mg/2 Ml Vial) 4 mg IVPUSH Q8H PRN PRN Reason: Nausea and Vomiting Last Admin: 04/03/24 20:54 Dose: 4 mg Documented By: ARIEL Oxycodone HCl (Oxycodone Hcl Immed Release 5 Mg Tablet) 5 mg PO Q6H PRN PRN Reason: Pain, Moderate(Pain Scale 4-6) Last Admin: 04/05/24 08:11 Dose: 5 mg Documented By: LETICIA Senna (Sennosides 8.6 Mg Tablet) 17.2 mg PO BEDTIME PRN PRN Reason: constipation Sodium Chloride (0.9 % Sodium Chloride Flush 3 Ml Syringe) 3 ml IVFLUSH QSHIFT [facility] Last Admin: 04/05/24 08:12 Dose: 3 ml Documented By: LETICIA Thyroid (Thyroid,Pork 30 Mg Tablet) 60 mg PO DAILY@0600 [facility] Last Admin: 04/05/24 05:30 Dose: 60 mg Documented By: LYSZ Labs 04/05/24 05:30 04/05/24 05:30 Labs: Laboratory Results - last 24 hr 04/04/24 04/04/24 04/05/24 14:22 18:20 05:30 MCV 88.8 85.6 MCH 28.9 28.9 MCHC 32.5 33.8 RDW 13.2 13.0 Plt Count 191 200 MPV 9.4 9.5 Absolute Nucleated RBC 0.000 0.000 Nucleated RBC % (auto) 0.0 0.0 Anion Gap 10 L 10 L Estim Creat Clear Calc 59.8 59.1 Estimated GFR > 60 > 60 Random Glucose 136 H 110 Calcium 8.1 L D 8.3 L Assessment and Plan (1) Hypothyroid: Status: Acute (2) Hip fracture: Status: Acute Plan 73 year old pleasant white female with history of hypothyroidism and osteoporosis here with: Acute right femoral neck fracture d/t accidental fall S/p surgical repair 04/04/24 doing well post op Pain control with dilaudid, oxycodone and tylenol DVT prophylaxis with lovenox PTOT a Hypothyroidism Levothyroxine Leukocytosis - WBC count of 17 K - reactive, trending down - monitor DVT prophylaxis: lovenox will likely need STR Quality Stroke Does the patient have a stroke diagnosis?: No VTE Prior VTE?: No VTE Risk Level:: Medical - moderate - high VTE Device Contraindication: N/A - Device Ordered VTE Drug Contraindication: N/A - Med Ordered
[2024-04-05 11:20] VITALS: BP 126/61; PULSE 100; RESP 17; TEMP 36; O2SAT 96
[2024-04-05] MEDS: Enoxaparin Sodium 40 MG/0.4 ML SYRINGE SUBCUT (11:23)
--- NOTE | 2024-04-05 12:46 | PC.NURSE ---
[facility] d/c ,patient tolerated it well,DTV#1 at 1905
--- NOTE | 2024-04-05 13:19 | MHC.CM.PN ---
Clinical information has been sent to facilities. The Patient has accepted a bed offer from [facility]. The facility requested transportation be pre-booked for tomorrow, , 04/06/24 @ 11am. The MD is aware of the transport time request.The trip is booked with [facility] for tomorrow 11am pick out hand.
[2024-04-05 15:33] VITALS: BP 144/65; PULSE 108; RESP 18; TEMP 37.3; O2SAT 94
[2024-04-05 19:02] VITALS: BP 134/65; PULSE 110; RESP 18; TEMP 37.3; O2SAT 94
[2024-04-05 23:43] VITALS: BP 145/69; PULSE 109; RESP 18; TEMP 36; O2SAT 93
[2024-04-06 03:13] VITALS: BP 135/65; PULSE 104; RESP 18; TEMP 36.8; O2SAT 94
[2024-04-06] MEDS: Thyroid,Pork 30 MG TABLET 60 MG PO (06:17)
[2024-04-06] MEDS: 0.9 % Sodium Chloride Flush 3 ML SYRINGE IVFLUSH (07:21)
[2024-04-06 07:32] VITALS: BP 139/65; PULSE 109; RESP 17; TEMP 37; O2SAT 93
--- NOTE | 2024-04-06 07:50 | PM.PNORT ---
Subjective Subjective Date of Service: 04/06/24 Interval history: POD2 s/p right hip deidra Patient is resting in bed comfortably No overnight events Pain is managed No additional complaints Physical Exam Vital Signs: Vital Signs: Last Vital Signs Temp 98.6 F 04/06/24 07:32 Pulse 109 H 04/06/24 07:32 Resp 17 04/06/24 07:32 BP 139/65 04/06/24 07:32 Pulse Ox 93 04/06/24 07:32 O2 Del Method Room Air 04/06/24 07:32 O2 Flow Rate 2 04/05/24 06:51 BMI result Body Mass Index 21.3 Const: General: cooperative, healthy appearing and no acute distress Resp: Effort & Inspection: normal respiratory effort and able to speak in complete sentences Cardio: Rate: regular rate Peripheral pulses: Peripheral pulses 2+ throughout GI: Palpation (GI): Soft to palpation Skin: Lesions: no lesions Rashes: no rashes Extrem: Other: right hip dressing is c/d/i. Able to dorsi/plantar flex. Calf is supple and nontender. Sensation intact. Pedal pulse intact. Procedures Date of Service Date of Service: 04/06/24 Progress Note: A&P Assessment and plan (1) Closed fracture of neck of right femur: Status: Acute Plan Continue pain mgmnt Continue Lovenox for dvt ppx begin PT/OT for right hip deidra - WBAT, Posterior precuations Dispo planning-Pending PT eval, pain mgmnt, able to discharge to rehab once medicine clears Time Spent With Patient Time: Total time managing care of this patient today ____ minutes. Quality Stroke Does the patient have a stroke diagnosis?: No VTE Prior VTE?: No VTE Risk Level:: Medical - moderate - high VTE Device Contraindication: N/A - Device Ordered VTE Drug Contraindication: N/A - Med Ordered
[2024-04-06 10:17] LABS: Alanine Aminotransferase 19 U/L (0-31); Albumin Level 3.4 g/dL (3.5-5.0); Alkaline Phosphatase 65 U/L (39-117); Anion Gap 12 (12-20); Aspartate Amino Transferase 41 U/L (5-31); Bilirubin Direct 0.6 mg/dL (0.0-0.5); Bilirubin Total 1.5 mg/dL (0.0-1.0); Blood Urea Nitrogen 13 mg/dL (9-16); Calcium 8.9 mg/dL (8.4-10.2); Carbon Dioxide 28 mmol/L (22-29); Chloride 103 mmol/L (96-108); Creatinine Clr Calc Pharmacy 50.4; Estimated Glomerular Filt Rate > 60; Glucose Random 154 mg/dL (60-115); Lipase 12 U/L (8-78); Magnesium 1.8 mg/dL (1.6-2.6); Potassium 3.5 mmol/L (3.3-5.1); Sodium 139 mmol/L (135-145)
--- NOTE | 2024-04-06 10:50 | PM.DS ---
DS: Providers Provider Date of Service: 04/06/24 Date of admission: 04/03/24 01:59 Date of discharge: 04/06/24 Primary care physician: Mariana Stone MD DS: Diagnosis Discharge Diagnosis (1) Closed fracture of neck of right femur: Status: Acute DS: Summary Hospital Course Hospital Course: admission hpi Chief complaint: Acute Right Femoral Neck Fracture Narrative: Alis Ballesteros is a 74 year old female with a PMH significant for hypothyroidism and osteoporosis who presented to the ED after sustaining a mechanical fall yesterday evening. She lives at home with her . Does not use any assistive devices for ambulation. While in the ED x-rays were obtained of the right hip and pelvis. The patient was found to have a right hip femoral neck fracture. She was admitted to the medicine service for further evaluation and treatment. hospital course: Patient sustained a right hip fracture from an accidental fall and underwent surgical repair the following day. She is doing well postoperatively. PT recommends STR, which she agrees to. She has oxycodone for pain and ortho advises 6 weeks of dvt prophylaxis with lovenox. CBC and bmp post op is ok Time Attestation Discharge Coordination Time (in mins): 45 Quality: Safe Use of Opioids Does Pt have an Active Cancer Diagnosis on the Problem List?: No Quality: Stroke Does the patient have a stroke diagnosis?: No Physical Exam Vital Signs: Vital Signs: Last Vital Signs Temp 98.6 F 04/06/24 07:32 Pulse 109 H 04/06/24 07:32 Resp 17 04/06/24 07:32 BP 139/65 04/06/24 07:32 Pulse Ox 93 04/06/24 07:32 O2 Del Method Room Air 04/06/24 07:32 O2 Flow Rate 2 04/05/24 06:51 BMI result Body Mass Index 21.3 Const: Other: General: AO X 3, no acute distress Resp: CTA bilateral CVS: S1,S2,RRR GI: +BS, NT, no distention Skin: No rash Neuro: motor grossly intact Psych: appropriate affect DS: Data Data Completed and Pending Pending studies at discharge: Pending at discharge 04/04/24 10:56 Surgical [PTH] Routine Labs on day of discharge: Laboratory Results - last 24 hr 04/06/24 09:18 Sodium 139 Potassium 3.5 Chloride 103 Carbon Dioxide 28 Anion Gap 12 BUN 13 Creatinine 0.75 Estim Creat Clear Calc 50.4 Estimated GFR > 60 Random Glucose 154 H Calcium 8.9 D Magnesium 1.8 Total Bilirubin 1.5 H Direct Bilirubin 0.6 H AST 41 H ALT 19 Alkaline Phosphatase 65 Total Protein 6.0 L Albumin 3.4 L Lipase 12 Discharge Plan Discharge Anticipated Discharge Date/Time: 04/06/24 10:34 Patient Disposition: Xfer SNF Discharge Diagnosis: Right hip fracture Referrals: [facility] [Outside] - 1 Week Po,Mariana Joy MD [Primary Care Provider] - 1 Week Discharge Medications: New oxycodone 5 mg Tablet 5 mg PO Q6H PRN (Reason: Pain, Moderate(Pain Scale 4-6)) Qty: 20 0RF Rx Instructions: Partial Fill upon patient request. enoxaparin 40 mg/0.4 mL Syringe 40 mg subcut Q24H Qty: 40 0RF docusate sodium [Colace] 100 mg capsule 100 mg PO BID Qty: 30 0RF Continued thyroid (pork) [[place] Thyroid] 60 mg tablet 60 mg PO DAILY@0600 Discharge Orders: Discharge Order (Routine); Ordered 04/06/24 Ordered By: Chris Hernandes Diet: Advance to usual diet Activity on Discharge: Use cane or walker Stand Alone Forms: Patient Portal Discharge page Print Language: Yi Activity Restrictions/Additional Instructions: Physical Therapy for total hip arthroplasty: posterior precautions, gait training, ROM, strength Limit stair climbing No showering, no tub bath-keep dressing clean, dry and intact No driving x6 weeks Continue Lovenox x 6 weeks Follow up with [facility] [place] Orthopedics in 2 weeks Care Plan Goals: recovery from hip fracture Health Concerns: hip fracture fall Plan of Treatment: Physical Therapy for total hip arthroplasty: posterior precautions, gait training, ROM, strength Limit stair climbing No showering, no tub bath-keep dressing clean, dry and intact No driving x6 weeks Continue Lovenox x 6 weeks Follow up with [facility] [place] Orthopedics in 2 weeks Assessment: see above
[2024-04-06 11:13] VITALS: BP 121/57; PULSE 108; RESP 18; TEMP 36.7; O2SAT 92
[2024-04-06] MEDS: Enoxaparin Sodium 40 MG/0.4 ML SYRINGE SUBCUT (11:20)
--- NOTE | 2024-04-06 12:05 | MHC.CM.PN ---
PT CLEARED TO DC TO [facility] FOR STR TODAY BLS TRANSPORT ARRANGED FOR 1300 HOURS VIA [facility] PT AWARE AND IN AGREEMENT
[2024-04-06 15:39] VITALS: BP 129/66; PULSE 110; RESP 16; TEMP 36.9; O2SAT 97
== END 2024-04-06 16:28 | disposition skilled nursing facility (03) | DRG 522 ==
LOC: HO.ED 04-03 00:54 → HO.EDOVER 04-03 02:17 → HO.S3 04-04 07:30
PROVIDERS: Orthopaedic Surgery; Physician Assistant Medical; Admitting Provider Internal Medicine; Emergency Provider Emergency Medicine; PCP Internal Medicine; Visit Provider Internal Medicine
PROC: 0SRR0J9 Replacement of Right Hip Joint, Femoral Surface with Synthetic Substitute, Cemented, Open Approach (ICD-10-PCS; CPT 27125; principal; 2024-04-04 09:50)
DX: S72.001A Fracture of unspecified part of neck of right femur, initial encounter for closed fracture (principal); W19.XXXA Unspecified fall, initial encounter; E03.9 Hypothyroidism, unspecified; Z87.891 Personal history of nicotine dependence; Z79.890 Hormone replacement therapy; Z79.899 Other long term (current) drug therapy
CPT/HCPCS: 36415; 71045; 72170; 73552; 80048; 80076; 83690; 83735; 85025; 85027; 85610; 86850; 86900; 86901; 88305; 88311; 93005; 97162; 97166; 99285; C1758; C1776; J0131; J0690; J1100; J1171; J1644; J1650; J2003; J2371; J2405; J2704; J2795; J3010; J7120

== ENCOUNTER → 2024-04-02 23:09 | Outpatient (BNV) | payer MEDICARE, OTHER, SELFPAY | PROVIDERS: Emergency Provider Emergency Medicine; PCP Internal Medicine; Visit Provider Radiology Neuroradiology | DX: S72.001A Fracture of unspecified part of neck of right femur, initial encounter for closed fracture (principal) | CPT/HCPCS: 73552 ==

== ENCOUNTER → 2024-04-03 00:41 | Outpatient (BNV) | payer MEDICARE, OTHER, SELFPAY | PROVIDERS: Admitting Provider Internal Medicine; Emergency Provider Emergency Medicine; PCP Internal Medicine; Visit Provider Radiology Neuroradiology | DX: Z01.818 Encounter for other preprocedural examination (principal) | CPT/HCPCS: 71045 ==

== ENCOUNTER → 2024-04-03 00:41 | Outpatient (BNV) | payer MEDICARE, OTHER, SELFPAY | PROVIDERS: Admitting Provider Internal Medicine; Emergency Provider Emergency Medicine; PCP Internal Medicine; Visit Provider Internal Medicine Cardiovascular Disease | DX: I49.9 Cardiac arrhythmia, unspecified (principal) | CPT/HCPCS: 93010 ==

== ENCOUNTER 2024-04-03 01:59 | Outpatient (BNV) | payer MEDICARE, OTHER, SELFPAY | END 2024-04-04 12:21 | PROVIDERS: Admitting Provider Internal Medicine; Emergency Provider Emergency Medicine; PCP Internal Medicine; Visit Provider Radiology Diagnostic Radiology | DX: S72.001A Fracture of unspecified part of neck of right femur, initial encounter for closed fracture (principal) | CPT/HCPCS: 72170 ==

== ENCOUNTER → 2024-04-03 01:59 | Outpatient (BNV) | payer MEDICARE, OTHER, SELFPAY | PROVIDERS: Admitting Provider Internal Medicine; Emergency Provider Emergency Medicine; PCP Internal Medicine; Visit Provider Internal Medicine | DX: S72.001A Fracture of unspecified part of neck of right femur, initial encounter for closed fracture (principal) | CPT/HCPCS: 99223; 99232; 99239; 99499 ==

== ENCOUNTER → 2024-04-03 01:59 | Outpatient (BNV) | payer MEDICARE, OTHER, SELFPAY | PROVIDERS: Admitting Provider Internal Medicine; Emergency Provider Emergency Medicine; PCP Internal Medicine; Visit Provider Physician Assistant | DX: S72.001A Fracture of unspecified part of neck of right femur, initial encounter for closed fracture (principal) | CPT/HCPCS: 27236; 99024; 99222 ==

== ENCOUNTER 2024-04-21 11:20 | Outpatient (REF) | payer MEDICARE, OTHER, SELFPAY ==
--- NOTE | ~2024-04-21 | XR_ITS ---
EXAMINATION: XR HIP, RIGHT CLINICAL INFORMATION: M25.551 - Pain in right hip COMPARISON: X-ray pelvis 04/04/2024 TECHNIQUE: Two views of the right hip. FINDINGS: There is right femoral hip prosthesis in alignment cocopah acetabulum. Immediate postoperative changes are noted. The left hip joint space is normal. No lytic or sclerotic process seen. The soft tissues are normal. XR/XR hip RT min 2V IMPRESSION: Postop right hip in satisfactory alignment. Immediate postoperative changes noted. Electronically signed by: Jonathon Torres MD 04/24/2024 10:46 AM [facility]
--- OUTSIDE RECORDS SUMMARY | 2024-04-21 13:28 | XMS_ITS | Clinical Summary ---
Author Organization Unknown Care Team Providers Care Swatch Paster Name Role Phone PO INTERSTATE, LORENVER Unavailable Unavaila trisha YOUNGER RN, BENJAMÍN Unavailable Unavailab cain CONDE PT, JUANY Unavailable Unavailable CLOVIS ORGAN TUNER, CHI Unavailable Unavailable SPAFFORD OT, JASMEET Unavailable Unavailable Payers Payer Name Policy Type Policy Number Effective Date Expira tion Date MEDICARE.[facility] ([place], [place]).[facility] [id number] Problems Condition Name Condition Details Condition Category Status Onset Date Resolution Date Last Treatment Date Treating Clinician Comments AGE-REL OSTEOPOR W CRNT PATH FX, R FEMR, 7THD Active 04-18 00:00: 00 GASTRO-ESOPH AGEAL REFLUX DISEASE WITHOUT ESOPHAGITIS Active 04-18 00:00: 00 HYPOTHYROIDI SM, UNSPECIFIED Active 04-18 00:00: 00 PRESENCE OF RIGHT ARTIFICIAL HIP JOINT Active 04-18 00:00: 00 HISTORY OF FALLING Active 04-18 00:00: 00 Allergies, Adverse Reactions, Alerts Allergy Name Allergy Type Status Severity Reaction(s) Onset Date Inactive Date Treating Clinician Comments NO KNOWN ALLERGIES Propensity to adverse reactions Active 04-18 13:14: 14 Vital Signs Vital Name Observation Time Observation Value Commen ts Temperature 2024-04-20 12:21:00.000 97.7 [degF] Temperature 2024-04-19 14:36:00.000 97.7 [degF] Temperature 2024-04-18 13:08:00.000 98.6 [degF] BMI (%) 2024-04-18 12:58:07.000 19 kg/m2 Height 2024-04-18 12:58:02.000 62 [in_us] Pulse 2024-04-20 12:21:00.000 84 /min Pulse 2024-04-19 14:36:00.000 97 /min Pulse 2024-04-18 13:08:00.000 99 /min O2 Saturation (%) 2024-04-19 14:36:00.000 97 % O2 Saturation (%) 2024-04-18 13:08:00.000 99 % Respirations 2024-04-20 12:21:00.000 18 /min Respirations 2024-04-19 14:36:00.000 18 /min Respirations 2024-04-18 13:08:00.000 18 /min Weight (lbs) 2024-04-18 12:58:07.000 106 [lb_av] Systolic Blood Pressure 2024-04-20 12:21:00.000 114 mm [Hg] Systolic Blood Pressure 2024-04-19 14:36:00.000 108 mm [Hg] Systolic Blood Pressure 2024-04-18 13:08:00.000 106 mm [Hg] Diastolic Blood Pressure 2024-04-20 12:21:00.000 78 mm [Hg] Diastolic Blood Pressure 2024-04-19 14:36:00.000 68 mm [Hg] Diastolic Blood Pressure 2024-04-18 13:08:00.000 66 mm [Hg] Plan of Treatment Planned Activity Planned Date Details Comments Future Scheduled Test RN TO OBSE RVE, ASSESS, EVALUATE, AND DEVELOP AN INDIVIDUALIZED PLAN OF CARE. AGENCY MAY ACCEPT ORDERS FROM CONSULTING PHYSICIANS . RN TO OBSERVE AND ASSESS, COMMODITIES BROKER/IN SERVICE EDUCATOR TO OBSERVE FOR RISK FOR FALLS AND INSTRUCT IN FALL PREVENTION, HOME SAFETY, MEDICATION MANAGEMENT, INFECTION PREVENTION, AND NUTRITION MANAGEMENT. RN/COMMODITIES BROKER/IN SERVICE EDUCATOR NURSE MAY PERFORM O2 SATURATION LEVEL ON ADMISSION AND PRN FOR RN TO ASSESS/COMMODITIES BROKER TO OBSERVE PATIENT, WITH NOTIFICATION TO THE PHYSICIAN IF SATURATION IS 90% IN THE ABSENCE OF MORE SPECIFIC PARAMETERS FROM THE PHYSICIAN. AGENCY MAY PERFORM A RESUMPTION OF CARE VISIT FOLLOWING ANY HOSPITAL ADMISSION. RN/COMMODITIES BROKER/IN SERVICE EDUCATOR TO MONITOR CO-MORBID CONDITIONS LISTED ON THE PLAN OF CARE AND ANY NEW CONDITIONS THAT PRESENT THEMSELVES DURING THIS EPISODE TO IDENTIFY CHANGES AND INTERVENE TO MINIMIZE COMPLICATIONS. [code = RN TO OBSERVE, ASSESS, EVALUATE, AND DEVELOP AN INDIVIDUALIZED PLAN OF CARE. AGENCY MAY ACCEPT ORDERS FROM CONSULTING PHYSICIANS . RN TO OBSERVE AND ASSESS, COMMODITIES BROKER/IN SERVICE EDUCATOR TO OBSERVE FOR RISK FOR FALLS AND INSTRUCT IN FALL PREVENTION, HOME SAFETY, MEDICATION MANAGEMENT, INFECTION PREVENTION, AND NUTRITION MANAGEMENT. RN/COMMODITIES BROKER/IN SERVICE EDUCATOR NURSE MAY PERFORM O2 SATURATION LEVEL ON ADMISSION AND PRN FOR RN TO ASSESS/COMMODITIES BROKER TO OBSERVE PATIENT, WITH NOTIFICATION TO THE PHYSICIAN IF SATURATION IS 90% IN THE ABSENCE OF MORE SPECIFIC PARAMETERS FROM THE PHYSICIAN. AGENCY MAY PERFORM A RESUMPTION OF CARE VISIT FOLLOWING ANY HOSPITAL ADMISSION. RN/COMMODITIES BROKER/IN SERVICE EDUCATOR TO MONITOR CO-MORBID CONDITIONS LISTED ON THE PLAN OF CARE AND ANY NEW CONDITIONS THAT PRESENT THEMSELVES DURING THIS EPISODE TO IDENTIFY CHANGES AND INTERVENE TO MINIMIZE COMPLICATIONS.] Future Scheduled Test MEDICATION MANAGEMENT; RN/COMMODITIES BROKER/IN SERVICE EDUCATOR TO REVIEW MEDICATIONS FOR INTERACTIONS, EFFECTIVENESS OF DRUG THERAPY, AND SIGNS/SYMPTOMS OF ADVERSE REACTIONS. MAY INSTRUCT AND REINFORCE MEDICATION TEACHING RELATED TO THE USE OF MEDICATIONS, DOSAGE, FREQUENCY, PURPOSE, SIDE EFFECTS, AND TO REPORT COMPLICATIONS. [code = MEDICATION MANAGEMENT; RN/COMMODITIES BROKER/IN SERVICE EDUCATOR TO REVIEW MEDICATIONS FOR INTERACTIONS, EFFECTIVENESS OF DRUG THERAPY, AND SIGNS/SYMPTOMS OF ADVERSE REACTIONS. MAY INSTRUCT AND REINFORCE MEDICATION TEACHING RELATED TO THE USE OF MEDICATIONS, DOSAGE, FREQUENCY, PURPOSE, SIDE EFFECTS, AND TO REPORT COMPLICATIONS.] Future Scheduled Test INJECTION ADMINISTRATION; RN/COMMODITIES BROKER/IN SERVICE EDUCATOR FOR ADMINISTRATION OF [place] ROUTE SQ INJECTION EVERY DAY. CAREGIVER TO GIVE INJECTIONS ON NON-NURSING VISIT DAYS [code = INJECTION ADMINISTRATION; RN/COMMODITIES BROKER/IN SERVICE EDUCATOR FOR ADMINISTRATION OF [place] ROUTE SQ INJECTION EVERY DAY. CAREGIVER TO GIVE INJECTIONS ON NON-NURSING VISIT DAYS ] Future Scheduled Test RISK FOR H OSPITALIZATION; RN TO ASSESS/TEACH, IN SERVICE EDUCATOR/COMMODITIES BROKER TO OBSERVE/TEACH PATIENT/CAREGIVER ON RISK FOR HOSPITALIZATION/EMERGENCY ROOM VISITS, TEACH SIGNS AND SYMPTOMS THAT PUT PATIENT AT RISK, WHEN TO NOTIFY NURSE/PHYSICIAN OF COMPLICATIONS/DECLINE, AND WHEN TO CALL 911. [code = RISK FOR HOSPITALIZATION; RN TO ASSESS/TEACH, IN SERVICE EDUCATOR/COMMODITIES BROKER TO OBSERVE/TEACH PATIENT/CAREGIVER ON RISK FOR HOSPITALIZATION/EMERGENCY ROOM VISITS, TEACH SIGNS AND SYMPTOMS THAT PUT PATIENT AT RISK, WHEN TO NOTIFY NURSE/PHYSICIAN OF COMPLICATIONS/DECLINE, AND WHEN TO CALL 911.] Future Scheduled Test RN/COMMODITIES BROKER/IN SERVICE EDUCATOR TO PERFORM/TEACH INCISION CARE TO RIGHT HIP: MONITOR NON-REMOVABLE SURGICAL DRESSING. NOTIFY PROVIDER OF ANY ABNORMAL FINDINGS. [code = RN/COMMODITIES BROKER/IN SERVICE EDUCATOR TO PERFORM/TEACH INCISION CARE TO RIGHT HIP: MONITOR NON-REMOVABLE SURGICAL DRESSING. NOTIFY PROVIDER OF ANY ABNORMAL FINDINGS. ] Future Scheduled Test PAIN MANAG EMENT; RN TO ASSESS AND TEACH, IN SERVICE EDUCATOR/COMMODITIES BROKER TO OBSERVE AND TEACH AND PROVIDE EDUCATION ON PAIN MANAGEMENT TECHNIQUES. [code = PAIN MANAGEMENT; RN TO ASSESS AND TEACH, IN SERVICE EDUCATOR/COMMODITIES BROKER TO OBSERVE AND TEACH AND PROVIDE EDUCATION ON PAIN MANAGEMENT TECHNIQUES.] Future Scheduled Test FALL REDUC TION MANAGEMENT; RN TO ASSESS AND OBSERVE, COMMODITIES BROKER/IN SERVICE EDUCATOR TO OBSERVE FALL RISK FACTORS AND EDUCATE PATIENT/CAREGIVER ON STRATEGIES TO MINIMIZE THE RISK OF FALLING. [code = FALL REDUCTION MANAGEMENT; RN TO ASSESS AND OBSERVE, COMMODITIES BROKER/IN SERVICE EDUCATOR TO OBSERVE FALL RISK FACTORS AND EDUCATE PATIENT/CAREGIVER ON STRATEGIES TO MINIMIZE THE RISK OF FALLING.] Future Scheduled Test PHYSICAL T HERAPIST TO EVALUATE FOR STRENGTHENING AND EDUCATION [code = PHYSICAL THERAPIST TO EVALUATE FOR STRENGTHENING AND EDUCATION ] Future Scheduled Test OCCUPATION AL THERAPIST TO EVALUATE FOR ADLS AND EDUCATION [code = OCCUPATIONAL THERAPIST TO EVALUATE FOR ADLS AND EDUCATION ] Goal Patient Goal - T O GET STRONGER, NEVER HAVE ANYTHING LIKE THIS EVER HAPPEN AGAIN, BE MORE ALERT, DO THE RIGHT THING, HEAL QUICKLY. Goal Provider Goal - A PLAN OF CARE WILL BE ESTABLISHED THAT MEETS THE PATIENTS NEEDS. PATIENT WILL DEMONSTRATE OXYGEN SATURATION WITHIN NORMAL LIMITS OR PATIENTS OPTIMAL LEVEL ESTABLISHED BY THE PHYSICIAN THROUGHOUT CARE. CHANGES TO CO-MORBID CONDITIONS AND ANY NEW CONDITIONS WILL BE IDENTIFIED AND REPORTED TO THE PHYSICIAN. Goal Provider Goal - PATIENT/CAREGIVER TO VERBALIZE, AND CONSISTENTLY DEMONSTRATE EFFECTIVE, SAFE MANAGEMENT OF MEDICATION INCLUDING KNOWLEDGE OF EFFECTIVENESS, POTENTIAL SIDE EFFECTS AND DRUG REACTIONS AND WHEN TO CONTACT THE APPROPRIATE CARE PROVIDER. PATIENT/CAREGIVER WILL BE ABLE TO VERBALIZE UNDERSTANDING OF MEDICATION REGIMEN AND ACCURATELY TAKE MEDICATIONS PRESCRIBED WITHOUT ADVERSE EFFECTS BY EOE Goal Provider Goal - PATIENT WILL VERBALIZE/DEMONSTRATE TOLERANCE OF INJECTION THROUGHOUT THIS EPISODE. Goal Provider Goal - PATIENT/CAREGIVER WILL VERBALIZE UNDERSTANDING OF SIGNS AND SYMPTOMS THAT PUT THE PATIENT AT RISK FOR HOSPITALIZATION /EMERGENCY ROOM VISITS, WHEN TO NOTIFY NURSE/PHYSICIAN OF COMPLICATIONS/DECLINE AND WHEN TO CALL 911. Goal Provider Goal - PATIENT / CAREGIVER WILL VERBALIZE / DEMONSTRATE ABILITY TO PERFORM WOUND CARE. WOUND STATUS WILL IMPROVE EVIDENCED BY A DECREASE IN SIZE, DRAINAGE, ABSENCE OF INFECTION, AND DECREASED PAIN BY EOE. Goal Provider Goal - PATIENT / CAREGIVER WILL VERBALIZE / DEMONSTRATE UNDERSTANDING OF PAIN CONTROL MEASURES BY EOE Goal Provider Goal - PATIENT/CAREGIVER WILL VERBALIZE/DEMONSTRATE UNDERSTANDING OF FALL RISK FACTORS AND IMPLEMENT STRATEGIES TO MINIMIZE FALL RISK. PATIENT/CAREGIVER WILL VERBALIZE/DEMONSTRATE AN ABILITY TO ADHERE TO FALL REDUCTION SELF-MANAGEMENT AND LIFE-STYLE CHANGES BY EOE Goal Provider Goal - Goal Provider Goal - Encounters Start Date/Time End Date/Time Encounter Type Admission Type Attending [facility] Facility Care Department Encounter ID Discharge Date Discharge Status Discharge Condition Discharge Reason Percent Goals Met 2024-04-18 00:00:00 2024-06-16 00:00:00 Outpatient NEW ADMISSION [facility]ENJAMÍN [facility] [id number] 100.00
--- OUTSIDE RECORDS SUMMARY | 2024-04-21 13:28 | XMS_ITS | Encounter Summary ---
Author Organization [facility] Address [address] [place] [address] Care Team Providers Care Heavy Forger Name Role Phone Dallas Lewis MD Primary Care Provider [phone] Encounter Details Date Type Department Care Team (Late st Contact Info) Description 04/07/2024 Lab Requisition [facility] - Main Lab [address] [facility] [place] [address] Dallas Lewis MD [address] [place] [phone] Hypothyroidism, unspecified; Age-related osteoporosis without current pathological fracture Social History Tobacco Use Types Packs/Day Years Used Date Smoking Tobacco: Never Assessed Comments Unknown Sex and Gender Information Value Date Recorded Sex Assigned at Not on file Legal Sex Female 9:00 AM EST Gender Identity Not on file Sexual Orientation Not on file documented as of this encounter Plan of Treatment Not on file documented as of this encounter Procedures Procedure Name Priority Date/Time Associated Diagnosis Comments COMPLETE BLOOD COUNT Routine 04/07/2024 5:04 AM EST Hypothyroidism, unspecified Age-related osteoporosis without current pathological fracture COMPREHENSIVE METABOLIC PANEL Routine 04/07/2024 5:04 AM EST Hypothyroidism, unspecified Age-related osteoporosis without current pathological fracture documented in this encounter Results * (ABNORMAL) Comprehensive metabolic panel (04/07/2024 5:04 AM EST) Sodium 139 133 - 145 mmol/L LAB CHEMISTRY METHOD 04/07/2024 10:14 AM EST [facility] Potassium 3.8 3.5 - 5.5 mmol/L LAB CHEMISTRY METHOD 04/07/2024 10:14 AM EST [facility] Chloride 104 96 - 110 mmol/L LAB CHEMISTRY METHOD 04/07/2024 10:14 AM [facility] CO2 30 21 - 32 mmol/L LAB CHEMISTRY METHOD 04/07/2024 10:14 AM [facility] Anion Gap 5 3 - 11 LAB CHEMISTRY METHOD 04/07/2024 10:14 AM [facility] Glucose 84 70 - 100 mg/dL LAB CHEMISTRY METHOD 04/07/2024 10:14 AM [facility] BUN 22 5 - 25 mg/dL LAB CHEMISTRY METHOD 04/07/2024 10:14 AM [facility] Creatinine 0.61 0.50 - 1.10 mg/dL LAB CHEMISTRY METHOD 04/07/2024 10:14 AM [facility] eGFR 93 >=60 mL/min/1. 73m2 LAB CHEMISTRY METHOD 04/07/2024 10:14 AM [facility] Comment:Calculation based on the??Chronic Kidney Disease Epidemiology Collaboration (CKD-EPI) equation refit??without adjustment for race. BUN/Creatinine Ratio 36.1 LAB CHEMISTRY METHOD 04/07/2024 10:14 AM [facility] Calcium 8.3(L) 8.5 - 10.5 mg/dL LAB CHEMISTRY METHOD 04/07/2024 10:14 AM [facility] AST (SGOT) 31 10 - 42 unit/L LAB CHEMISTRY METHOD 04/07/2024 10:14 AM [facility] ALT (SGPT) 24 10 - 60 unit/L LAB CHEMISTRY METHOD 04/07/2024 10:14 AM [facility] Alkaline Phosphatase 57 42 - 121 unit/L LAB CHEMISTRY METHOD 04/07/2024 10:14 AM [facility] Total Protein 4.9(L) 6.0 - 8.0 g/dL LAB CHEMISTRY METHOD 04/07/2024 10:14 AM [facility] Albumin 2.4(L) 3.2 - 5.0 g/dL LAB CHEMISTRY METHOD 04/07/2024 10:14 AM [facility] Total Bilirubin 0.9 0.0 - 1.4 mg/dL LAB CHEMISTRY METHOD 04/07/2024 10:14 AM [facility] Blood Venous blood specimen / Unknown Venipuncture / Unknown 04/07/2024 5:04 AM EST 04/07/2024 9:04 AM EST us Dallas Lewis MD LAB BLOOD ORDERABLES Final Resu lt [facility] [address] [place] [address], [place] [phone] * (ABNORMAL) Complete blood count (04/07/2024 5:04 AM EST) WBC 11.8(H) 4.8 - 10.8 K/mcL LAB HEMETOLOGY METHOD 04/07/2024 9:27 AM [facility] RBC 3.60(L) 3.80 - 4.80 M/mcL LAB HEMETOLOGY METHOD 04/07/2024 9:27 AM [facility] Hemoglobin 10.4(L) 11.5 - 16.0 g/dL LAB HEMETOLOGY METHOD 04/07/2024 9:27 AM [facility] Hematocrit 31.5(L) 35.0 - 47.0 % LAB HEMETOLOGY METHOD 04/07/2024 9:27 AM [facility] MCV 87.5 79.0 - 98.0 FL LAB HEMETOLOGY METHOD 04/07/2024 9:27 AM [facility] MCH 28.9 27.0 - 32.0 pcg LAB HEMETOLOGY METHOD 04/07/2024 9:27 AM [facility] MCHC 33.0 32.0 - 37.0 g/dL LAB HEMETOLOGY METHOD 04/07/2024 9:27 AM EST [facility] RDW 13.2 11.0 - 15.0 % LAB HEMETOLOGY METHOD 04/07/2024 9:27 AM EST [facility] Platelets 243 130 - 400 K/mcL LAB HEMETOLOGY METHOD 04/07/2024 9:27 AM EST [facility] MPV 9.4 7.0 - 11.0 FL LAB HEMETOLOGY METHOD 04/07/2024 9:27 AM EST [facility] NRBC 0.0 <1.0 % LAB HEMETOLOGY METHOD 04/07/2024 9:27 AM [facility] NRBC Absolute 0.00 <0.10 K/mcL LAB HEMETOLOGY METHOD 04/07/2024 9:27 AM [facility] Blood Venous blood specimen / Unknown Venipuncture / Unknown 04/07/2024 5:04 AM EST 04/07/2024 9:04 AM EST us Dallas Lewis MD LAB BLOOD ORDERABLES Final Resu lt [facility] [address] [place] [address], documented in this encounter Visit Diagnoses Diagnosis Hypothyroidism, unspecified Age-related osteoporosis without current pathological fracture documented in this encounter Care Teams Heavy Forger Relationship Specialty Start Date End Date Dallas Lewis MD [address] [place] [address] PCP - General Internal Medicine 04/07/24 documented as of this encounter
--- OUTSIDE RECORDS SUMMARY | 2024-04-21 13:28 | XMS_ITS | Encounter Summary ---
Author Organization [facility] Address [address] [place] [address] Care Team Providers Care Endocrinologist Name Role Phone Dallas Lewis MD Primary Care Provider [phone] Encounter Details Date Type Department Care Team (Late st Contact Info) Description 04/15/2024 Lab Requisition [facility] - Main Lab [address] [facility] [place] [address] Dallas Lewis MD [address] [place] [phone] Hypothyroidism, unspecified; Age-related osteoporosis without current [...] Associated Diagnosis Comments COMPLETE BLOOD COUNT Routine 04/17/2024 5:51 AM EST Hypothyroidism, unspecified Age-related osteoporosis without current pathological fracture COMPREHENSIVE METABOLIC PANEL Routine 04/17/2024 5:51 AM EST Hypothyroidism, unspecified Age-related osteoporosis without current pathological fracture documented in this encounter Results * (ABNORMAL) Comprehensive metabolic panel (04/17/2024 5:51 AM EST) Sodium 138 133 - 145 mmol/L LAB CHEMISTRY METHOD 04/17/2024 11:[address] [facility] Potassium 4.5 3.5 - 5.5 mmol/L LAB CHEMISTRY METHOD 04/17/2024 11:[address] [facility] Chloride 103 96 - 110 mmol/L LAB CHEMISTRY METHOD 04/17/2024 11:16 AM [facility] CO2 29 21 - 32 mmol/L LAB CHEMISTRY METHOD 04/17/2024 11:16 AM [facility] Anion Gap 6 3 - 11 LAB CHEMISTRY METHOD 04/17/2024 11:16 AM [facility] Glucose 98 70 - 100 mg/dL LAB CHEMISTRY METHOD 04/17/2024 11:16 AM [facility] BUN 14 5 - 25 mg/dL LAB CHEMISTRY METHOD 04/17/2024 11:16 AM [facility] Creatinine 0.78 0.50 - 1.10 mg/dL LAB CHEMISTRY METHOD 04/17/2024 11:16 AM [facility] eGFR 79 >=60 mL/min/1. 73m2 LAB CHEMISTRY METHOD 04/17/2024 11:16 AM [facility] Comment:Calculation based on the??Chronic Kidney Disease Epidemiology Collaboration (CKD-EPI) equation refit??without adjustment for race. BUN/Creatinine Ratio 17.9 LAB CHEMISTRY METHOD 04/17/2024 11:16 AM [facility] Calcium 9.2 8.5 - 10.5 mg/dL LAB CHEMISTRY METHOD 04/17/2024 11:16 AM [facility] AST (SGOT) 112(H) 10 - 42 unit/L LAB CHEMISTRY METHOD 04/17/2024 11:16 AM [facility] Comment:Results verified by repeat testing ALT (SGPT) 199(H) 10 - 60 unit/L LAB CHEMISTRY METHOD 04/17/2024 11:16 AM [facility] Comment:Results verified by repeat testing Alkaline Phosphatase 168(H) 42 - 121 unit/L LAB CHEMISTRY METHOD 04/17/2024 11:16 AM [facility] Comment:Results verified by repeat testing Total Protein 6.5 6.0 - 8.0 g/dL LAB CHEMISTRY METHOD 04/17/2024 11:[address] [facility] Albumin 3.5 3.2 - 5.0 g/dL LAB CHEMISTRY METHOD 04/17/2024 11:16 AM [facility] Total Bilirubin 0.9 0.0 - 1.4 mg/dL LAB CHEMISTRY METHOD 04/17/2024 11:16 AM [facility] Blood Venous blood specimen / Unknown Venipuncture / Unknown 04/17/2024 5:51 AM EST 04/17/2024 9:55 AM EST us Dallas Lewis MD LAB BLOOD ORDERABLES Final Resu lt [facility] [address] [place] [address], [place] [phone] * (ABNORMAL) Complete blood count (04/17/2024 5:51 AM EST) WBC 12.9(H) 4.8 - 10.8 K/mcL LAB HEMETOLOGY METHOD 04/17/2024 10:22 AM [facility] RBC 4.30 3.80 - 4.80 M/mcL LAB HEMETOLOGY METHOD 04/17/2024 10:22 AM [facility] Hemoglobin 12.2 11.5 - 16.0 g/dL LAB HEMETOLOGY METHOD 04/17/2024 10:22 AM [facility] Hematocrit 39.8 35.0 - 47.0 % LAB HEMETOLOGY METHOD 04/17/2024 10:22 AM [facility] MCV 92.3 79.0 - 98.0 FL LAB HEMETOLOGY METHOD 04/17/2024 10:22 AM [facility] MCH 28.3 27.0 - 32.0 pcg LAB HEMETOLOGY METHOD 04/17/2024 10:22 AM [facility] MCHC 30.7(L) 32.0 - 37.0 g/dL LAB HEMETOLOGY METHOD 04/17/2024 10:[address] [facility] RDW 13.5 11.0 - 15.0 % LAB HEMETOLOGY METHOD 04/17/2024 10:22 AM [facility] Platelets 551(H) 130 - 400 K/mcL LAB HEMETOLOGY METHOD 04/17/2024 10:[address] [facility] MPV 9.6 7.0 - 11.0 FL LAB HEMETOLOGY METHOD 04/17/2024 10:[address] [facility] NRBC 0.0 <1.0 % LAB HEMETOLOGY METHOD 04/17/2024 10:22 AM [facility] NRBC Absolute 0.00 <0.10 K/mcL LAB HEMETOLOGY METHOD 04/17/2024 10:22 AM [facility] Blood Venous blood specimen / Unknown Venipuncture / Unknown 04/17/2024 5:51 AM EST 04/17/2024 9:57 AM EST us Dallas Lewis MD LAB BLOOD ORDERABLES Final Resu lt [facility] [address] [place] [address], documented in this encounter Visit Diagnoses Diagnosis Hypothyroidism, unspecified Age-related osteoporosis without current pathological fracture documented in this encounter Care Teams Endocrinologist Relationship Specialty Start Date End Date Dallas Lewis MD [address] [place] [phone] PCP - General Internal Medicine 04/07/24 documented as of this encounter
--- OUTSIDE RECORDS SUMMARY | 2024-04-21 13:28 | XMS_ITS | Encounter Summary ---
Author Organization [facility] Address [address] [place] [address] Care Team Providers Care Cessation Systems Outreach Specialist Name Role Phone Dallas Lewis MD Primary Care Provider Encounter Details Date Type Department Care Team (Late st Contact Info) Description 04/08/2024 Lab Requisition [facility] - Main Lab [address] [facility] [place] [address] Dallas Lewis MD [address] [place] [phone] Hypothyroidism, unspecified; Age-related osteoporosis without current [...] Associated Diagnosis Comments COMPLETE BLOOD COUNT Routine 04/10/2024 5:54 AM EST Hypothyroidism, unspecified Age-related osteoporosis without current pathological fracture COMPREHENSIVE METABOLIC PANEL Routine 04/10/2024 5:54 AM EST Hypothyroidism, unspecified Age-related osteoporosis without current pathological fracture documented in this encounter Results * (ABNORMAL) Comprehensive metabolic panel (04/10/2024 5:54 AM EST) Sodium 141 133 - 145 mmol/L LAB CHEMISTRY METHOD 04/10/2024 10:[address] [facility] Potassium 4.2 3.5 - 5.5 mmol/L LAB CHEMISTRY METHOD 04/10/2024 10:[address] [facility] Chloride 105 96 - 110 mmol/L LAB CHEMISTRY METHOD 04/10/2024 10:55 AM [facility] CO2 27 21 - 32 mmol/L LAB CHEMISTRY METHOD 04/10/2024 10:55 AM [facility] Anion Gap 9 3 - 11 LAB CHEMISTRY METHOD 04/10/2024 10:55 AM [facility] Glucose 86 70 - 100 mg/dL LAB CHEMISTRY METHOD 04/10/2024 10:55 AM [facility] BUN 14 5 - 25 mg/dL LAB CHEMISTRY METHOD 04/10/2024 10:55 AM [facility] Creatinine 0.68 0.50 - 1.10 mg/dL LAB CHEMISTRY METHOD 04/10/2024 10:55 AM [facility] eGFR 90 >=60 mL/min/1. 73m2 LAB CHEMISTRY METHOD 04/10/2024 10:55 AM [facility] Comment:Calculation based on the??Chronic Kidney Disease Epidemiology Collaboration (CKD-EPI) equation refit??without adjustment for race. BUN/Creatinine Ratio 20.6 LAB CHEMISTRY METHOD 04/10/2024 10:55 AM [facility] Calcium 8.4(L) 8.5 - 10.5 mg/dL LAB CHEMISTRY METHOD 04/10/2024 10:55 AM [facility] AST (SGOT) 34 10 - 42 unit/L LAB CHEMISTRY METHOD 04/10/2024 10:55 AM [facility] ALT (SGPT) 28 10 - 60 unit/L LAB CHEMISTRY METHOD 04/10/2024 10:55 AM [facility] Alkaline Phosphatase 59 42 - 121 unit/L LAB CHEMISTRY METHOD 04/10/2024 10:55 AM [facility] Total Protein 5.2(L) 6.0 - 8.0 g/dL LAB CHEMISTRY METHOD 04/10/2024 10:55 AM [facility] Albumin 2.6(L) 3.2 - 5.0 g/dL LAB CHEMISTRY METHOD 04/10/2024 10:55 AM [facility] Total Bilirubin 0.8 0.0 - 1.4 mg/dL LAB CHEMISTRY METHOD 04/10/2024 10:55 AM [facility] Blood Venous blood specimen / Unknown Venipuncture / Unknown 04/10/2024 5:54 AM EST 04/10/2024 9:51 AM EST us Dallas Lewis MD LAB BLOOD ORDERABLES Final Resu lt [facility] [address] [place] [address], * (ABNORMAL) Complete blood count (04/10/2024 5:54 AM EST) WBC 8.5 4.8 - 10.8 K/mcL LAB HEMETOLOGY METHOD 04/10/2024 10:21 AM [facility] RBC 3.70(L) 3.80 - 4.80 M/mcL LAB HEMETOLOGY METHOD 04/10/2024 10:21 AM [facility] Hemoglobin 10.7(L) 11.5 - 16.0 g/dL LAB HEMETOLOGY METHOD 04/10/2024 10:21 AM [facility] Hematocrit 32.7(L) 35.0 - 47.0 % LAB HEMETOLOGY METHOD 04/10/2024 10:21 AM [facility] MCV 88.6 79.0 - 98.0 FL LAB HEMETOLOGY METHOD 04/10/2024 10:21 AM [facility] MCH 29.0 27.0 - 32.0 pcg LAB HEMETOLOGY METHOD 04/10/2024 10:21 AM [facility] MCHC 32.7 32.0 - 37.0 g/dL LAB HEMETOLOGY METHOD 04/10/2024 10:[address] [facility] RDW 13.0 11.0 - 15.0 % LAB HEMETOLOGY METHOD 04/10/2024 10:[address] [facility] Platelets 328 130 - 400 K/mcL LAB HEMETOLOGY METHOD 04/10/2024 10:21 AM [facility] MPV 9.2 7.0 - 11.0 FL LAB HEMETOLOGY METHOD 04/10/2024 10:[address] [facility] NRBC 0.0 <1.0 % LAB HEMETOLOGY METHOD 04/10/2024 10:21 AM [facility] NRBC Absolute 0.00 <0.10 K/mcL LAB HEMETOLOGY METHOD 04/10/2024 10:21 AM [facility] Blood Venous blood specimen / Unknown Venipuncture / Unknown 04/10/2024 5:54 AM EST 04/10/2024 9:54 AM EST us Dallas Lewis MD LAB BLOOD ORDERABLES Final Resu lt [facility] [address] [place] [address], documented in this encounter Visit Diagnoses Diagnosis Hypothyroidism, unspecified Age-related osteoporosis without current pathological fracture documented in this encounter Care Teams Cessation Systems Outreach Specialist Relationship Specialty Start Date End Date Dallas Lewis MD [address] [place] [address] PCP - General Internal Medicine 04/07/24 documented as of this encounter
--- OUTSIDE RECORDS SUMMARY | 2024-04-21 13:28 | XMS_ITS | Encounter Summary ---
Author Organization [facility] Address [address] [place] [address] Care Team Providers Care Sql Ssis Developer Name Role Phone Dallas Lewis MD Primary Care Provider [phone] Encounter Details Date Type Department Care Team (Late st Contact Info) Description 04/12/2024 Lab Requisition [facility] - Main Lab [address] [facility] [place] [address] Dallas Lewis MD [address] [place] [phone] Hypothyroidism, unspecified; Age-related osteoporosis without current [...] Associated Diagnosis Comments COMPLETE BLOOD COUNT Routine 04/13/2024 5:55 AM EST Hypothyroidism, unspecified Age-related osteoporosis without current pathological fracture BASIC METABOLIC PANEL Routine 04/13/2024 5:55 AM EST Hypothyroidism, unspecified Age-related osteoporosis without current pathological fracture documented in this encounter Results * (ABNORMAL) Basic metabolic panel (04/13/2024 5:55 AM EST) Sodium 139 133 - 145 mmol/L LAB CHEMISTRY METHOD 04/13/2024 9:49 AM EST [facility] Potassium 3.8 3.5 - 5.5 mmol/L LAB CHEMISTRY METHOD 04/13/2024 9:49 AM EST [facility] Chloride 106 96 - 110 mmol/L LAB CHEMISTRY METHOD 04/13/2024 9:49 AM [facility] CO2 25 21 - 32 mmol/L LAB CHEMISTRY METHOD 04/13/2024 9:49 AM [facility] Anion Gap 8 3 - 11 LAB CHEMISTRY METHOD 04/13/2024 9:49 AM [facility] Glucose 81 70 - 100 mg/dL LAB CHEMISTRY METHOD 04/13/2024 9:49 AM [facility] BUN 11 5 - 25 mg/dL LAB CHEMISTRY METHOD 04/13/2024 9:49 AM [facility] Creatinine 0.60 0.50 - 1.10 mg/dL LAB CHEMISTRY METHOD 04/13/2024 9:49 AM [facility] eGFR 93 >=60 mL/min/1. 73m2 LAB CHEMISTRY METHOD 04/13/2024 9:49 AM [facility] Comment:Calculation based on the??Chronic Kidney Disease Epidemiology Collaboration (CKD-EPI) equation refit??without adjustment for race. BUN/Creatinine Ratio 18.3 LAB CHEMISTRY METHOD 04/13/2024 9:49 AM [facility] Calcium 8.3(L) 8.5 - 10.5 mg/dL LAB CHEMISTRY METHOD 04/13/2024 9:49 AM [facility] Blood Venous blood specimen / Unknown 04/13/2024 5:55 AM EST 04/13/2024 9:20 AM EST us Dallas Lewis MD LAB BLOOD ORDERABLES Final Resu lt [facility] [address] [place] [address], * (ABNORMAL) Complete blood count (04/13/2024 5:55 AM EST) WBC 7.6 4.8 - 10.8 K/mcL LAB HEMETOLOGY METHOD 04/13/2024 9:35 AM [facility] RBC 3.60(L) 3.80 - 4.80 M/mcL LAB HEMETOLOGY METHOD 04/13/2024 9:35 AM [facility] Hemoglobin 10.3(L) 11.5 - 16.0 g/dL LAB HEMETOLOGY METHOD 04/13/2024 9:35 AM [facility] Hematocrit 32.0(L) 35.0 - 47.0 % LAB HEMETOLOGY METHOD 04/13/2024 9:35 AM [facility] MCV 88.6 79.0 - 98.0 FL LAB HEMETOLOGY METHOD 04/13/2024 9:35 AM [facility] MCH 28.5 27.0 - 32.0 pcg LAB HEMETOLOGY METHOD 04/13/2024 9:35 AM [facility] MCHC 32.2 32.0 - 37.0 g/dL LAB HEMETOLOGY METHOD 04/13/2024 9:35 AM [facility] RDW 13.2 11.0 - 15.0 % LAB HEMETOLOGY METHOD 04/13/2024 9:35 AM [facility] Platelets 345 130 - 400 K/mcL LAB HEMETOLOGY METHOD 04/13/2024 9:35 AM [facility] MPV 9.3 7.0 - 11.0 FL LAB HEMETOLOGY METHOD 04/13/2024 9:35 AM [facility] NRBC 0.0 <1.0 % LAB HEMETOLOGY METHOD 04/13/2024 9:35 AM [facility] NRBC Absolute 0.00 <0.10 K/mcL LAB HEMETOLOGY METHOD 04/13/2024 9:35 AM [facility] Blood Venous blood specimen / Unknown Venipuncture / Unknown 04/13/2024 5:55 AM EST 04/13/2024 9:16 AM EST Dallas Lewis MD LAB BLOOD ORDERABLES Final [facility] [address] [place] [address], documented in this encounter Visit Diagnoses Diagnosis Hypothyroidism, unspecified Age-related osteoporosis without current pathological fracture documented in this encounter Care Teams Sql Ssis Developer Relationship Specialty Start Date End Date Dallas Lewis MD [address] [place] [address] PCP - General Internal Medicine 04/07/24 documented as of this encounter
--- OUTSIDE RECORDS SUMMARY | 2024-04-21 13:28 | XMS_ITS | Clinical Summary ---
Author Organization [address] [facility] Address [address] [place] [address] Phone Care Team Providers Care Test Analyst Name Role Phone Dallas Lewis MD Primary Care Provider [phone] Encounters Date Type Department Care Team Description 04/19/2024 Lab Requisition [facility] Lab [address] [place] [phone] Dallas Lewis MD Hypothyroidism, unspecified; Age-related osteoporosis without current pathological fracture 04/15/2024 Lab Requisition [facility] [address] [place] [phone] Dallas Lewis MD Hypothyroidism, unspecified; Age-related osteoporosis without current pathological fracture 04/12/2024 Lab Requisition [facility] [address] [place] [phone] Dallas Lewis MD Hypothyroidism, unspecified; Age-related osteoporosis without current pathological fracture 04/08/2024 Lab Requisition [facility] Lab [address] [place] [phone] Dallas Lewis MD Hypothyroidism, unspecified; Age-related osteoporosis without current pathological fracture 04/07/2024 Lab Requisition [facility] Lab [address] [place] [phone] Dallas Lewis MD Hypothyroidism, unspecified; Age-related osteoporosis without current pathological fracture from Last 3 Months Social History Tobacco Use Types Packs/Day Years Used Date Smoking Tobacco: Never Assessed Comments Unknown Sex and Gender Information Value Date Recorded Sex Assigned at Not on file Legal Sex Female 9:00 AM EST Gender Identity Not on file Sexual Orientation Not on file Plan of Treatment Health Maintenance Due Date Last Done Comments DTaP,Tdap,and Td Vaccines (1 - Tdap) 02/15/1967 Pneumococcal Vaccine: 50+ Ye ars (1 of 1 - PCV) 02/15/1998 Zoster Vaccines (1 of 2) 02/15/1998 RSV Immunization Patients 60 + Years Old (1 - 1-dose 75+ series) 02/15/2023 COVID-19 Vaccine (1 - 2023-2 5 season) 2023 Influenza Vaccine (#1) 2023 Depression Screening 04/07/2024 Falls Risk Assessment 04/07/2024 Hepatitis C Screening 04/07/2024 Medicare Annual Wellness Visit 04/07/2024 Osteoporosis Screening (Bone Density Screening) 04/07/2024 Social Influencers of Health Screening 04/07/2024 HIB Vaccines Aged Out No longer eligi ble based on patient's age to complete this topic HPV Vaccines Aged Out No longer eligi ble based on patient's age to complete this topic Hepatitis A Vaccines Aged Out No long er eligible based on patient's age to complete this topic Hepatitis B Vaccines Aged Out No long er eligible based on patient's age to complete this topic IPV Vaccines Aged Out No longer eligi ble based on patient's age to complete this topic MMR Vaccines Aged Out No longer eligi ble based on patient's age to complete this topic Meningococcal ACWY Vaccine Aged Out N o longer eligible based on patient's age to complete this topic Meningococcal B Vacine Aged Out No lo nger eligible based on patient's age to complete this topic RSV Immunization Patients Un arben 20 months Aged Out No longer eligible b ased on patient's age to complete this topic Varicella Vaccines Aged Out No longer eligible based on patient's age to complete this topic Procedures Procedure Name Priority Date/Time Associated Diagnosis Comments COMPREHENSIVE METABOLIC PANEL Routine 04/17/2024 5:51 AM EST Hypothyroidism, unspecified Age-related osteoporosis without current pathological fracture COMPLETE BLOOD COUNT Routine 04/17/2024 5:51 AM EST Hypothyroidism, unspecified Age-related osteoporosis without current pathological fracture BASIC METABOLIC PANEL Routine 04/13/2024 5:55 AM EST Hypothyroidism, unspecified Age-related osteoporosis without current pathological fracture COMPLETE BLOOD COUNT Routine 04/13/2024 5:55 AM EST Hypothyroidism, unspecified Age-related osteoporosis without current pathological fracture COMPREHENSIVE METABOLIC PANEL Routine 04/10/2024 5:54 AM EST Hypothyroidism, unspecified Age-related osteoporosis without current pathological fracture COMPLETE BLOOD COUNT Routine 04/10/2024 5:54 AM EST Hypothyroidism, unspecified Age-related osteoporosis without current pathological fracture COMPREHENSIVE METABOLIC PANEL Routine 04/07/2024 5:04 AM EST Hypothyroidism, unspecified Age-related osteoporosis without current pathological fracture COMPLETE BLOOD COUNT Routine 04/07/2024 5:04 AM EST Hypothyroidism, unspecified Age-related osteoporosis without current pathological fracture from Last 3 Months Results * (ABNORMAL) Complete blood count (04/17/2024 5:51 AM EST) Only the most recent of4 resultswithin the time period is included. WBC 12.9(H) 4.8 - 10.8 K/mcL LAB HEMETOLOGY METHOD 04/17/2024 10:22 AM [facility] RBC 4.30 3.80 - 4.80 M/mcL LAB HEMETOLOGY METHOD 04/17/2024 10:22 AM [facility] Hemoglobin 12.2 11.5 - 16.0 g/dL LAB HEMETOLOGY METHOD 04/17/2024 10:22 AM [facility] Hematocrit 39.8 35.0 - 47.0 % LAB HEMETOLOGY METHOD 04/17/2024 10:22 AM [facility] MCV 92.3 79.0 - 98.0 FL LAB HEMETOLOGY METHOD 04/17/2024 10:22 AM [facility] MCH 28.3 27.0 - 32.0 pcg LAB HEMETOLOGY METHOD 04/17/2024 10:22 AM [facility] MCHC 30.7(L) 32.0 - 37.0 g/dL LAB HEMETOLOGY METHOD 04/17/2024 10:22 AM EST [facility] RDW 13.5 11.0 - 15.0 % LAB HEMETOLOGY METHOD 04/17/2024 10:22 AM [facility] Platelets 551(H) 130 - 400 K/mcL LAB HEMETOLOGY METHOD 04/17/2024 10:22 AM EST [facility] MPV 9.6 7.0 - 11.0 FL LAB HEMETOLOGY METHOD 04/17/2024 10:22 AM EST [facility] NRBC 0.0 <1.0 % LAB HEMETOLOGY METHOD 04/17/2024 10:22 AM [facility] NRBC Absolute 0.00 <0.10 K/mcL LAB HEMETOLOGY METHOD 04/17/2024 10:22 AM [facility] Blood Venous blood specimen / Unknown Venipuncture / Unknown 04/17/2024 5:51 AM EST 04/17/2024 9:57 AM EST Dallas Lewis MD LAB BLOOD ORDERABLES Final Resu lt [facility] [address] [place] [address], * (ABNORMAL) Comprehensive metabolic panel (04/17/2024 5:51 AM EST) Only the most recent of3 resultswithin the time period is included. Sodium 138 133 - 145 mmol/L LAB CHEMISTRY METHOD 04/17/2024 11:16 AM EST [facility] Potassium 4.5 3.5 - 5.5 mmol/L LAB CHEMISTRY METHOD 04/17/2024 11:16 AM [facility] Chloride 103 96 - 110 mmol/L LAB CHEMISTRY METHOD 04/17/2024 11:16 AM [facility] CO2 29 21 - 32 mmol/L LAB CHEMISTRY METHOD 04/17/2024 11:16 AM [facility] Anion Gap 6 3 - 11 LAB CHEMISTRY METHOD 04/17/2024 11:16 AM [facility] Glucose 98 70 - 100 mg/dL LAB CHEMISTRY METHOD 04/17/2024 11:16 AM [facility] BUN 14 5 - 25 mg/dL LAB CHEMISTRY METHOD 04/17/2024 11:16 AM [facility] Creatinine 0.78 0.50 - 1.10 mg/dL LAB CHEMISTRY METHOD 04/17/2024 11:16 AM [facility] eGFR 79 >=60 mL/min/1. 73m2 LAB CHEMISTRY METHOD 04/17/2024 11:16 AM [facility] Comment:Calculation based on the??Chronic Kidney Disease Epidemiology Collaboration (CKD-EPI) equation refit??without adjustment for race. BUN/Creatinine Ratio 17.9 LAB CHEMISTRY METHOD 04/17/2024 11:16 AM [facility] Calcium 9.2 8.5 - 10.5 mg/dL LAB CHEMISTRY METHOD 04/17/2024 11:16 AM [facility] AST (SGOT) 112(H) 10 - 42 unit/L LAB CHEMISTRY METHOD 04/17/2024 11:16 AM [facility] Comment:Results verified by repeat testing ALT (SGPT) 199(H) 10 - 60 unit/L LAB CHEMISTRY METHOD 04/17/2024 11:16 AM [facility] Comment:Results verified by repeat testing Alkaline Phosphatase 168(H) 42 - 121 unit/L LAB CHEMISTRY METHOD 04/17/2024 11:16 AM [facility] Comment:Results verified by repeat testing Total Protein 6.5 6.0 - 8.0 g/dL LAB CHEMISTRY METHOD 04/17/2024 11:16 AM [facility] Albumin 3.5 3.2 - 5.0 g/dL LAB CHEMISTRY METHOD 04/17/2024 11:16 AM [facility] Total Bilirubin 0.9 0.0 - 1.4 mg/dL LAB CHEMISTRY METHOD 04/17/2024 11:16 AM [facility] Blood Venous blood specimen / Unknown Venipuncture / Unknown 04/17/2024 5:51 AM EST 04/17/2024 9:55 AM EST us Dallas Lewis MD LAB BLOOD ORDERABLES Final Resu lt [facility] [address] [place] [address], [place] [phone] * (ABNORMAL) Basic metabolic panel (04/13/2024 5:55 AM EST) Sodium 139 133 - 145 mmol/L LAB CHEMISTRY METHOD 04/13/2024 9:49 AM [facility] Potassium 3.8 3.5 - 5.5 mmol/L LAB CHEMISTRY METHOD 04/13/2024 9:49 AM [facility] Chloride 106 96 - 110 mmol/L LAB CHEMISTRY METHOD 04/13/2024 9:49 AM [facility] CO2 25 21 - 32 mmol/L LAB CHEMISTRY METHOD 04/13/2024 9:49 AM [facility] Anion Gap 8 3 - 11 LAB CHEMISTRY METHOD 04/13/2024 9:49 AM [facility] Glucose 81 70 - 100 mg/dL LAB CHEMISTRY METHOD 04/13/2024 9:49 AM [facility] BUN 11 5 - 25 mg/dL LAB CHEMISTRY METHOD 04/13/2024 9:49 AM [facility] Creatinine 0.60 0.50 - 1.10 mg/dL LAB CHEMISTRY METHOD 04/13/2024 9:49 AM [facility] eGFR 93 >=60 mL/min/1. 73m2 LAB CHEMISTRY METHOD 04/13/2024 9:49 AM EST [facility] Comment:Calculation based on the??Chronic Kidney Disease Epidemiology Collaboration (CKD-EPI) equation refit??without adjustment for race. BUN/Creatinine Ratio 18.3 LAB CHEMISTRY METHOD 04/13/2024 9:49 AM EST [facility] Calcium 8.3(L) 8.5 - 10.5 mg/dL LAB CHEMISTRY METHOD 04/13/2024 9:49 AM EST [facility] Blood Venous blood specimen / Unknown 04/13/2024 5:55 AM EST 04/13/2024 9:20 AM EST Dallas Lewis MD LAB BLOOD ORDERABLES Final Resu lt [facility] [address] [place] [address], from Last 3 Months Insurance MEDICARE [facility] Care Teams Test Analyst Relationship Specialty Start Date End Date Dallas Lewis MD [address] [place] [address] PCP - General Internal Medicine 04/07/24
--- OUTSIDE RECORDS SUMMARY | 2024-04-21 13:28 | XMS_ITS | Encounter Summary ---
Author Organization [employer] Address [address] [place] [address] Care Team Providers Care Open Hearth Laborer Name Role Phone Dallas Lewis MD Primary Care Provider [phone] Encounter Details Date Type Department Care Team (Late st Contact Info) Description 04/19/[address] [facility] - Main Lab [address] [facility] [place] [address] Dallas Lewis MD [address] [place] [address] Hypothyroidism, unspecified; Age-related osteoporosis without current [...] on file documented as of this encounter Visit Diagnoses Diagnosis Hypothyroidism, unspecified Age-related osteoporosis without current pathological fracture documented in this encounter Care Teams Open Hearth Laborer Relationship Specialty Start Date End Date Dallas Lewis MD [address] [place] [address] PCP - General Internal Medicine 04/07/24 documented as of this encounter
--- OUTSIDE RECORDS SUMMARY | 2024-04-21 13:28 | XMS_ITS | Clinical Summary ---
Author Organization Unknown Care Team Providers Care Magazine Editor Name Role Phone PO INTERSTATE, LORENVER Unavailable Unavaila trisha YOUNGER RN, BENJAMÍN Unavailable Unavailab cain CONDE PT, JUANY Unavailable Unavailable [facility] BLADDER TRIMMER, CHI Unavailable Unavailable SPAFFORD OT, JASMEET Unavailable Unavailable Payers Payer Name Policy Type Policy Number Effective Date Expira tion Date MEDICARE.[facility] [id number] Problems Condition Name Condition Details Condition Category [...] PHYSICIANS . RN TO OBSERVE AND ASSESS, THERAPIST RESPIRATORY/WIND SCIENCE AND PLANNING TO OBSERVE FOR RISK FOR FALLS AND INSTRUCT IN FALL PREVENTION, HOME SAFETY, MEDICATION MANAGEMENT, INFECTION PREVENTION, AND NUTRITION MANAGEMENT. RN/THERAPIST RESPIRATORY/WIND SCIENCE AND PLANNING NURSE MAY PERFORM O2 SATURATION LEVEL ON ADMISSION AND PRN FOR RN TO ASSESS/THERAPIST RESPIRATORY TO OBSERVE PATIENT, WITH NOTIFICATION TO THE PHYSICIAN IF SATURATION IS 90% IN THE ABSENCE OF MORE SPECIFIC PARAMETERS FROM THE PHYSICIAN. AGENCY MAY PERFORM A RESUMPTION OF CARE VISIT FOLLOWING ANY HOSPITAL ADMISSION. RN/THERAPIST RESPIRATORY/WIND SCIENCE AND PLANNING TO MONITOR CO-MORBID CONDITIONS LISTED ON THE PLAN OF CARE AND ANY NEW CONDITIONS THAT PRESENT THEMSELVES DURING THIS EPISODE TO IDENTIFY CHANGES AND INTERVENE TO MINIMIZE COMPLICATIONS. [code = RN TO OBSERVE, ASSESS, EVALUATE, AND DEVELOP AN INDIVIDUALIZED PLAN OF CARE. AGENCY MAY ACCEPT ORDERS FROM CONSULTING PHYSICIANS . RN TO OBSERVE AND ASSESS, THERAPIST RESPIRATORY/WIND SCIENCE AND PLANNING TO OBSERVE FOR RISK FOR FALLS AND INSTRUCT IN FALL PREVENTION, HOME SAFETY, MEDICATION MANAGEMENT, INFECTION PREVENTION, AND NUTRITION MANAGEMENT. RN/THERAPIST RESPIRATORY/WIND SCIENCE AND PLANNING NURSE MAY PERFORM O2 SATURATION LEVEL ON ADMISSION AND PRN FOR RN TO ASSESS/THERAPIST RESPIRATORY TO OBSERVE PATIENT, WITH NOTIFICATION TO THE PHYSICIAN IF SATURATION IS 90% IN THE ABSENCE OF MORE SPECIFIC PARAMETERS FROM THE PHYSICIAN. AGENCY MAY PERFORM A RESUMPTION OF CARE VISIT FOLLOWING ANY HOSPITAL ADMISSION. RN/THERAPIST RESPIRATORY/WIND SCIENCE AND PLANNING TO MONITOR CO-MORBID CONDITIONS LISTED ON THE PLAN OF CARE AND ANY NEW CONDITIONS THAT PRESENT THEMSELVES DURING THIS EPISODE TO IDENTIFY CHANGES AND INTERVENE TO MINIMIZE COMPLICATIONS.] Future Scheduled Test MEDICATION MANAGEMENT; RN/THERAPIST RESPIRATORY/WIND SCIENCE AND PLANNING TO REVIEW MEDICATIONS FOR INTERACTIONS, EFFECTIVENESS OF DRUG THERAPY, AND SIGNS/SYMPTOMS OF ADVERSE REACTIONS. MAY INSTRUCT AND REINFORCE MEDICATION TEACHING RELATED TO THE USE OF MEDICATIONS, DOSAGE, FREQUENCY, PURPOSE, SIDE EFFECTS, AND TO REPORT COMPLICATIONS. [code = MEDICATION MANAGEMENT; RN/THERAPIST RESPIRATORY/WIND SCIENCE AND PLANNING TO REVIEW MEDICATIONS FOR INTERACTIONS, EFFECTIVENESS OF DRUG THERAPY, AND SIGNS/SYMPTOMS OF ADVERSE REACTIONS. MAY INSTRUCT AND REINFORCE MEDICATION TEACHING RELATED TO THE USE OF MEDICATIONS, DOSAGE, FREQUENCY, PURPOSE, SIDE EFFECTS, AND TO REPORT COMPLICATIONS.] Future Scheduled Test INJECTION ADMINISTRATION; RN/THERAPIST RESPIRATORY/WIND SCIENCE AND PLANNING FOR ADMINISTRATION OF [place] ROUTE SQ INJECTION EVERY DAY. CAREGIVER TO GIVE INJECTIONS ON NON-NURSING VISIT DAYS [code = INJECTION ADMINISTRATION; RN/THERAPIST RESPIRATORY/WIND SCIENCE AND PLANNING FOR ADMINISTRATION OF [place] ROUTE SQ INJECTION EVERY DAY. CAREGIVER TO GIVE INJECTIONS ON NON-NURSING VISIT DAYS ] Future Scheduled Test RISK FOR H OSPITALIZATION; RN TO ASSESS/TEACH, WIND SCIENCE AND PLANNING/THERAPIST RESPIRATORY TO OBSERVE/TEACH PATIENT/CAREGIVER ON RISK FOR HOSPITALIZATION/EMERGENCY ROOM VISITS, TEACH SIGNS AND SYMPTOMS THAT PUT PATIENT AT RISK, WHEN TO NOTIFY NURSE/PHYSICIAN OF COMPLICATIONS/DECLINE, AND WHEN TO CALL 911. [code = RISK FOR HOSPITALIZATION; RN TO ASSESS/TEACH, WIND SCIENCE AND PLANNING/THERAPIST RESPIRATORY TO OBSERVE/TEACH PATIENT/CAREGIVER ON RISK FOR HOSPITALIZATION/EMERGENCY ROOM VISITS, TEACH SIGNS AND SYMPTOMS THAT PUT PATIENT AT RISK, WHEN TO NOTIFY NURSE/PHYSICIAN OF COMPLICATIONS/DECLINE, AND WHEN TO CALL 911.] Future Scheduled Test RN/THERAPIST RESPIRATORY/WIND SCIENCE AND PLANNING TO PERFORM/TEACH INCISION CARE TO RIGHT HIP: MONITOR NON-REMOVABLE SURGICAL DRESSING. NOTIFY PROVIDER OF ANY ABNORMAL FINDINGS. [code = RN/THERAPIST RESPIRATORY/WIND SCIENCE AND PLANNING TO PERFORM/TEACH INCISION CARE TO RIGHT HIP: MONITOR NON-REMOVABLE SURGICAL DRESSING. NOTIFY PROVIDER OF ANY ABNORMAL FINDINGS. ] Future Scheduled Test PAIN MANAG EMENT; RN TO ASSESS AND TEACH, WIND SCIENCE AND PLANNING/THERAPIST RESPIRATORY TO OBSERVE AND TEACH AND PROVIDE EDUCATION ON PAIN MANAGEMENT TECHNIQUES. [code = PAIN MANAGEMENT; RN TO ASSESS AND TEACH, WIND SCIENCE AND PLANNING/THERAPIST RESPIRATORY TO OBSERVE AND TEACH AND PROVIDE EDUCATION ON PAIN MANAGEMENT TECHNIQUES.] Future Scheduled Test FALL REDUC TION MANAGEMENT; RN TO ASSESS AND OBSERVE, THERAPIST RESPIRATORY/WIND SCIENCE AND PLANNING TO OBSERVE FALL RISK FACTORS AND EDUCATE PATIENT/CAREGIVER ON STRATEGIES TO MINIMIZE THE RISK OF FALLING. [code = FALL REDUCTION MANAGEMENT; RN TO ASSESS AND OBSERVE, THERAPIST RESPIRATORY/WIND SCIENCE AND PLANNING TO OBSERVE FALL RISK FACTORS AND EDUCATE [...] End Date/Time Encounter Type Admission Type Attending [facility] Facility Care Department Encounter ID Discharge Date Discharge Status Discharge Condition Discharge Reason Percent Goals Met 2024-04-18 00:00:00 2024-06-16 00:00:00 Outpatient NEW ADMISSION BENJAMÍN YOUNGER [facility] [id number] 100.00
== END 2024-04-21 11:21 | disposition home or self-care (01) ==
LOC: HO.HOSX 11:20
DX: M25.551 Pain in right hip (principal); Z96.641 Presence of right artificial hip joint
CPT/HCPCS: 73502; 99212

== ENCOUNTER 2024-04-21 12:57 | Outpatient (AMB) | payer MEDICARE, OTHER, SELFPAY ==
--- NOTE | 2024-04-21 13:03 | MHC.OFFVIS ---
Intake Visit Reasons: PO- Right Hip [place] 04/04/24 NE Intake Note: Alis is a 74 year old female who presents today for her first post operative appointment s/p right hip hemiarthroplasty 04/04/24. Patient took a fall at home on 04/02/24 and was seen at [facility] ED the day of injury where she was admitted for surgery. Patient reports she is doing okay. She has a new onset of numbness and tingling on her right toes. Allergies Codeine-Guaifenesin Allergy (Unknown, Uncoded 04/21/24 13:12) rash shellfish Adverse Reaction (Mild, Uncoded 04/21/24 13:12) upset stomach HPI HPI PO- Right Hip Channing 04/04/24 NE: Details: Alis is a 74 year old female who presents today for her first post operative appointment s/p right hip hemiarthroplasty 04/04/24. Patient took a fall at home on 04/02/24 and was seen at [facility] ED the day of injury where she was admitted for surgery. Patient reports she is doing okay. Patient does state that she has noticed some increased swelling in the right leg, but has noticed no redness or no pain associated with this. [facility] Medical History (Updated 04/14/24 @ 00:01 by Allegra Akbar) Osteoporosis COVID Screening for diabetes mellitus Preop exam for internal medicine Osteoporosis GERD (gastroesophageal reflux disease) Hypothyroid Surgical History (Updated 04/06/24 @ 12:34 by Mariana Stone MD) History of tonsillectomy and adenoidectomy Social History Household Members: Spouse Housing: House Are you a primary child care center administrator to a significant other at home: No Do you presently have visiting nurse or other home services: No Alcohol intake: never Comment: once a year glass Patient Tobacco Use Status: Former Tobacco user Tobacco use type: Cigarette e-Cigarette/Vaping Use: Never Used Second Hand Smoke Exposure: No Advance Directives Date on File: 04/03/24 service: No Current occupational status: retired Cognitive needs: No Hearing needs: No Vision needs: Yes Review of Systems Const All systems reviewed & are unremarkable except as noted in HPI and below Physical Exam Extrem Other: Dressing on right hip clean, dry, intact Dressing removed without difficulty No evidence of surrounding erythema, ecchymosis No evidence of infection Patient is able to flex and extend the digits of the left foot without difficulty Slightly increased swelling in the distal right lower extremity when compared to the left, no tenderness to palpation, redness, or other signs and symptoms consistent with potential DVT Compartments soft, nontender Distal sensation intact Capillary refill brisk Results Reviewed Results Reviewed: X-rays obtained in the office today and independently reviewed by me, Jaquan Berry PA-C, demonstrate right hip hemiarthroplasty with all orthopedic hardware in place and in satisfactory clinical alignment. Assessment & Plan Assessment & Plan (1) History of arthroplasty of right hip: Comment: March 2024 Code(s): Z96.641 - Presence of right artificial hip joint Category: Surgical Plan 1. Status post right hip hemiarthroplasty DOS 04/04/2024 Patient appears to be recovering well postoperatively Patient is educated about the typical recovery course [place] removed in the office today Patient was informed that she can take a shower Patient was educated she continue working with physical therapy Patient will follow-up in 4 weeks with repeat x-rays for reassessment, sooner with any acute concerns Orders: Orders XR hip RT min 2V Today M25.551 - Pain in right hip Coding Level of Care Code Global (50440) Diagnoses History of arthroplasty of right hip Z96.641
--- OUTSIDE RECORDS SUMMARY | 2024-04-21 15:01 | XMS_ITS | Encounter Summary ---
Author Organization [facility] Address [address] [place] [address] Care Team Providers Care Irrigation System Installer Name Role Phone Dallas Lewis MD Primary Care Provider Encounter Details Date Type Department Care Team (Late st Contact Info) Description 04/08/[address] [facility] - Main Lab [address] [facility] [place] [address] Dallas Lewis MD [address] [place] [phone] Hypothyroidism, unspecified; Age-related osteoporosis without current [...] LAB CHEMISTRY METHOD 04/10/2024 10:55 AM EST [facility] Potassium 4.2 3.5 - 5.5 mmol/L LAB CHEMISTRY METHOD 04/10/2024 10:55 AM EST [facility] Chloride 105 96 - 110 mmol/L LAB CHEMISTRY METHOD 04/10/2024 10:55 AM [facility] CO2 27 21 - 32 mmol/L LAB CHEMISTRY METHOD 04/10/2024 10:55 AM [facility] Anion Gap 9 3 - 11 LAB CHEMISTRY METHOD 04/10/2024 10:55 AM [facility] Glucose 86 70 - 100 mg/dL LAB CHEMISTRY METHOD 04/10/2024 10:55 AM [facility] BUN 14 5 - 25 mg/dL LAB CHEMISTRY METHOD 04/10/2024 10:55 AM [facility] Creatinine 0.68 0.50 - 1.10 mg/dL LAB CHEMISTRY METHOD 04/10/2024 10:55 AM [facility] LAB eGFR 90 >=60 mL/min/1. 73m2 LAB CHEMISTRY METHOD 04/10/2024 10:55 AM [facility] LAB Comment:Calculation based on the??Chronic Kidney Disease Epidemiology Collaboration (CKD-EPI) equation refit??without adjustment for race. BUN/Creatinine Ratio 20.6 LAB CHEMISTRY METHOD 04/10/2024 10:55 AM [facility] Calcium 8.4(L) 8.5 - 10.5 mg/dL LAB CHEMISTRY METHOD 04/10/2024 10:55 AM [facility] AST (SGOT) 34 10 - 42 unit/L LAB CHEMISTRY METHOD 04/10/2024 10:55 AM [facility] ALT (SGPT) 28 10 - 60 unit/L LAB CHEMISTRY METHOD 04/10/2024 10:55 AM [facility] Alkaline Phosphatase 59 42 - 121 unit/L LAB CHEMISTRY METHOD 04/10/2024 10:55 AM [facility] Total Protein 5.2(L) 6.0 - 8.0 g/dL LAB CHEMISTRY METHOD 04/10/2024 10:55 AM [facility] Albumin 2.6(L) 3.2 - 5.0 g/dL LAB CHEMISTRY METHOD 04/10/2024 10:55 AM [facility] Total Bilirubin 0.8 0.0 - 1.4 mg/dL LAB CHEMISTRY METHOD 04/10/2024 10:55 AM [facility] Blood Venous blood specimen / Unknown Venipuncture / Unknown 04/10/2024 5:54 AM EST 04/10/2024 9:51 AM EST us Dallas Lewis MD LAB BLOOD ORDERABLES Final Resu lt [facility] [address] [place] [address], * (ABNORMAL) Complete blood count (04/10/2024 5:54 AM EST) WBC 8.5 4.8 - 10.8 K/mcL LAB HEMETOLOGY METHOD 04/10/2024 10:21 AM [facility] RBC 3.70(L) 3.80 - 4.80 M/mcL LAB HEMETOLOGY METHOD 04/10/2024 10:21 AM [facility] Hemoglobin 10.7(L) 11.5 - 16.0 g/dL LAB HEMETOLOGY METHOD 04/10/2024 10:21 AM [facility] Hematocrit 32.7(L) 35.0 - 47.0 % LAB HEMETOLOGY METHOD 04/10/2024 10:21 AM [facility] MCV 88.6 79.0 - 98.0 FL LAB HEMETOLOGY METHOD 04/10/2024 10:21 AM [facility] MCH 29.0 27.0 - 32.0 pcg LAB HEMETOLOGY METHOD 04/10/2024 10:21 AM [facility] MCHC 32.7 32.0 - 37.0 g/dL LAB HEMETOLOGY METHOD 04/10/2024 10:21 AM EST [facility] RDW 13.0 11.0 - 15.0 % LAB HEMETOLOGY METHOD 04/10/2024 10:21 AM EST [facility] LAB Platelets 328 130 - 400 K/mcL LAB HEMETOLOGY METHOD 04/10/2024 10:21 AM [facility] MPV 9.2 7.0 - 11.0 FL LAB HEMETOLOGY METHOD 04/10/2024 10:21 AM EST [facility] NRBC 0.0 <1.0 % LAB HEMETOLOGY METHOD 04/10/2024 10:21 AM [facility] NRBC Absolute 0.00 <0.10 K/mcL LAB HEMETOLOGY METHOD 04/10/2024 10:21 AM [facility] Blood Venous blood specimen / Unknown Venipuncture / Unknown 04/10/2024 5:54 AM EST 04/10/2024 9:54 AM EST us Dallas Lewis MD LAB BLOOD ORDERABLES Final Resu lt [facility] [address] [place] [address], documented in this encounter Visit Diagnoses Diagnosis Hypothyroidism, unspecified Age-related osteoporosis without current pathological fracture documented in this encounter Care Teams Irrigation System Installer Relationship Specialty Start Date End Date Dallas Lewis MD [address] [place] [address] PCP - General Internal Medicine 04/07/24 documented as of this encounter
--- OUTSIDE RECORDS SUMMARY | 2024-04-21 15:01 | XMS_ITS | Clinical Summary ---
Author Organization Unknown Care Team Providers Care Auto Radiator Mechanic Name Role Phone PO INTERSTATE, LORENVER Unavailable Unavaila trisha YOUNGER RN, BENJAMÍN Unavailable Unavailab cain CONDE PT, JUANY Unavailable Unavailable [facility] LANDSCAPE CREW MEMBER, CHI Unavailable Unavailable SPAFFORD OT, JASMEET Unavailable Unavailable Payers Payer Name Policy Type Policy Number Effective Date Expira tion Date MEDICARE.[facility] [id number] Problems Condition Name Condition Details Condition Category [...] PHYSICIANS . RN TO OBSERVE AND ASSESS, SAFETY ADMIN ASSISTANT/MAINFRAME PROGRAMMER TO OBSERVE FOR RISK FOR FALLS AND INSTRUCT IN FALL PREVENTION, HOME SAFETY, MEDICATION MANAGEMENT, INFECTION PREVENTION, AND NUTRITION MANAGEMENT. RN/SAFETY ADMIN ASSISTANT/MAINFRAME PROGRAMMER NURSE MAY PERFORM O2 SATURATION LEVEL ON ADMISSION AND PRN FOR RN TO ASSESS/SAFETY ADMIN ASSISTANT TO OBSERVE PATIENT, WITH NOTIFICATION TO THE PHYSICIAN IF SATURATION IS 90% IN THE ABSENCE OF MORE SPECIFIC PARAMETERS FROM THE PHYSICIAN. AGENCY MAY PERFORM A RESUMPTION OF CARE VISIT FOLLOWING ANY HOSPITAL ADMISSION. RN/SAFETY ADMIN ASSISTANT/MAINFRAME PROGRAMMER TO MONITOR CO-MORBID CONDITIONS LISTED ON THE PLAN OF CARE AND ANY NEW CONDITIONS THAT PRESENT THEMSELVES DURING THIS EPISODE TO IDENTIFY CHANGES AND INTERVENE TO MINIMIZE COMPLICATIONS. [code = RN TO OBSERVE, ASSESS, EVALUATE, AND DEVELOP AN INDIVIDUALIZED PLAN OF CARE. AGENCY MAY ACCEPT ORDERS FROM CONSULTING PHYSICIANS . RN TO OBSERVE AND ASSESS, SAFETY ADMIN ASSISTANT/MAINFRAME PROGRAMMER TO OBSERVE FOR RISK FOR FALLS AND INSTRUCT IN FALL PREVENTION, HOME SAFETY, MEDICATION MANAGEMENT, INFECTION PREVENTION, AND NUTRITION MANAGEMENT. RN/SAFETY ADMIN ASSISTANT/MAINFRAME PROGRAMMER NURSE MAY PERFORM O2 SATURATION LEVEL ON ADMISSION AND PRN FOR RN TO ASSESS/SAFETY ADMIN ASSISTANT TO OBSERVE PATIENT, WITH NOTIFICATION TO THE PHYSICIAN IF SATURATION IS 90% IN THE ABSENCE OF MORE SPECIFIC PARAMETERS FROM THE PHYSICIAN. AGENCY MAY PERFORM A RESUMPTION OF CARE VISIT FOLLOWING ANY HOSPITAL ADMISSION. RN/SAFETY ADMIN ASSISTANT/MAINFRAME PROGRAMMER TO MONITOR CO-MORBID CONDITIONS LISTED ON THE PLAN OF CARE AND ANY NEW CONDITIONS THAT PRESENT THEMSELVES DURING THIS EPISODE TO IDENTIFY CHANGES AND INTERVENE TO MINIMIZE COMPLICATIONS.] Future Scheduled Test MEDICATION MANAGEMENT; RN/SAFETY ADMIN ASSISTANT/MAINFRAME PROGRAMMER TO REVIEW MEDICATIONS FOR INTERACTIONS, EFFECTIVENESS OF DRUG THERAPY, AND SIGNS/SYMPTOMS OF ADVERSE REACTIONS. MAY INSTRUCT AND REINFORCE MEDICATION TEACHING RELATED TO THE USE OF MEDICATIONS, DOSAGE, FREQUENCY, PURPOSE, SIDE EFFECTS, AND TO REPORT COMPLICATIONS. [code = MEDICATION MANAGEMENT; RN/SAFETY ADMIN ASSISTANT/MAINFRAME PROGRAMMER TO REVIEW MEDICATIONS FOR INTERACTIONS, EFFECTIVENESS OF DRUG THERAPY, AND SIGNS/SYMPTOMS OF ADVERSE REACTIONS. MAY INSTRUCT AND REINFORCE MEDICATION TEACHING RELATED TO THE USE OF MEDICATIONS, DOSAGE, FREQUENCY, PURPOSE, SIDE EFFECTS, AND TO REPORT COMPLICATIONS.] Future Scheduled Test INJECTION ADMINISTRATION; RN/SAFETY ADMIN ASSISTANT/MAINFRAME PROGRAMMER FOR ADMINISTRATION OF [place] ROUTE SQ INJECTION EVERY DAY. CAREGIVER TO GIVE INJECTIONS ON NON-NURSING VISIT DAYS [code = INJECTION ADMINISTRATION; RN/SAFETY ADMIN ASSISTANT/MAINFRAME PROGRAMMER FOR ADMINISTRATION OF [place] SQ INJECTION EVERY DAY. CAREGIVER TO GIVE INJECTIONS ON NON-NURSING VISIT DAYS ] Future Scheduled Test RISK FOR H OSPITALIZATION; RN TO ASSESS/TEACH, MAINFRAME PROGRAMMER/SAFETY ADMIN ASSISTANT TO OBSERVE/TEACH PATIENT/CAREGIVER ON RISK FOR HOSPITALIZATION/EMERGENCY ROOM VISITS, TEACH SIGNS AND SYMPTOMS THAT PUT PATIENT AT RISK, WHEN TO NOTIFY NURSE/PHYSICIAN OF COMPLICATIONS/DECLINE, AND WHEN TO CALL 911. [code = RISK FOR HOSPITALIZATION; RN TO ASSESS/TEACH, MAINFRAME PROGRAMMER/SAFETY ADMIN ASSISTANT TO OBSERVE/TEACH PATIENT/CAREGIVER ON RISK FOR HOSPITALIZATION/EMERGENCY ROOM VISITS, TEACH SIGNS AND SYMPTOMS THAT PUT PATIENT AT RISK, WHEN TO NOTIFY NURSE/PHYSICIAN OF COMPLICATIONS/DECLINE, AND WHEN TO CALL 911.] Future Scheduled Test RN/SAFETY ADMIN ASSISTANT/MAINFRAME PROGRAMMER TO PERFORM/TEACH INCISION CARE TO RIGHT HIP: MONITOR NON-REMOVABLE SURGICAL DRESSING. NOTIFY PROVIDER OF ANY ABNORMAL FINDINGS. [code = RN/SAFETY ADMIN ASSISTANT/MAINFRAME PROGRAMMER TO PERFORM/TEACH INCISION CARE TO RIGHT HIP: MONITOR NON-REMOVABLE SURGICAL DRESSING. NOTIFY PROVIDER OF ANY ABNORMAL FINDINGS. ] Future Scheduled Test PAIN MANAG EMENT; RN TO ASSESS AND TEACH, MAINFRAME PROGRAMMER/SAFETY ADMIN ASSISTANT TO OBSERVE AND TEACH AND PROVIDE EDUCATION ON PAIN MANAGEMENT TECHNIQUES. [code = PAIN MANAGEMENT; RN TO ASSESS AND TEACH, MAINFRAME PROGRAMMER/SAFETY ADMIN ASSISTANT TO OBSERVE AND TEACH AND PROVIDE EDUCATION ON PAIN MANAGEMENT TECHNIQUES.] Future Scheduled Test FALL REDUC TION MANAGEMENT; RN TO ASSESS AND OBSERVE, SAFETY ADMIN ASSISTANT/MAINFRAME PROGRAMMER TO OBSERVE FALL RISK FACTORS AND EDUCATE PATIENT/CAREGIVER ON STRATEGIES TO MINIMIZE THE RISK OF FALLING. [code = FALL REDUCTION MANAGEMENT; RN TO ASSESS AND OBSERVE, SAFETY ADMIN ASSISTANT/MAINFRAME PROGRAMMER TO OBSERVE FALL RISK FACTORS AND EDUCATE [...] End Date/Time Encounter Type Admission Type Attending [facility] Facility Care Department Encounter ID Discharge Date Discharge Status Discharge Condition Discharge Reason Percent Goals Met 2024-04-18 00:00:00 2024-06-16 00:00:00 Outpatient NEW ADMISSION BENJAMÍN YOUNGER [facility] [id number] 100.00
--- OUTSIDE RECORDS SUMMARY | 2024-04-21 15:01 | XMS_ITS | Encounter Summary ---
Author Organization [facility] Address [address] [place] [address] Care Team Providers Care Mail Weigher Name Role Phone Dallas Lewis MD Primary Care Provider [phone] Encounter Details Date Type Department Care Team (Late st Contact Info) Description 04/15/2024 Lab Requisition [facility] - Main Lab [address] [facility] [place] [address] Dallas Lewis MD [address] [place] [phone] Hypothyroidism, unspecified; Age-related osteoporosis without current [...] LAB CHEMISTRY METHOD 04/17/2024 11:16 AM EST [facility] Potassium 4.5 3.5 - 5.5 mmol/L LAB CHEMISTRY METHOD 04/17/2024 11:16 AM EST [facility] LAB Chloride 103 96 - 110 mmol/L LAB CHEMISTRY METHOD 04/17/2024 11:16 AM [facility] CO2 29 21 - 32 mmol/L LAB CHEMISTRY METHOD 04/17/2024 11:16 AM [facility] Anion Gap 6 3 - 11 LAB CHEMISTRY METHOD 04/17/2024 11:16 AM [facility] Glucose 98 70 - 100 mg/dL LAB CHEMISTRY METHOD 04/17/2024 11:16 AM [facility] BUN 14 5 - 25 mg/dL LAB CHEMISTRY METHOD 04/17/2024 11:16 AM [facility] Creatinine 0.78 0.50 - 1.10 mg/dL LAB CHEMISTRY METHOD 04/17/2024 11:16 AM [facility] LAB eGFR 79 >=60 mL/min/1. 73m2 LAB CHEMISTRY METHOD 04/17/2024 11:16 AM [facility] LAB Comment:Calculation based on the??Chronic Kidney Disease Epidemiology Collaboration (CKD-EPI) equation refit??without adjustment for race. BUN/Creatinine Ratio 17.9 LAB CHEMISTRY METHOD 04/17/2024 11:16 AM [facility] Calcium 9.2 8.5 - 10.5 mg/dL LAB CHEMISTRY METHOD 04/17/2024 11:16 AM [facility] AST (SGOT) 112(H) 10 - 42 unit/L LAB CHEMISTRY METHOD 04/17/2024 11:16 AM [facility] Comment:Results verified by repeat testing ALT (SGPT) 199(H) 10 - 60 unit/L LAB CHEMISTRY METHOD 04/17/2024 11:16 AM [facility] Comment:Results verified by repeat testing Alkaline Phosphatase 168(H) 42 - 121 unit/L LAB CHEMISTRY METHOD 04/17/2024 11:16 AM [facility] Comment:Results verified by repeat testing Total Protein 6.5 6.0 - 8.0 g/dL LAB CHEMISTRY METHOD 04/17/2024 11:16 AM EST [facility] Albumin 3.5 3.2 - 5.0 g/dL LAB CHEMISTRY METHOD 04/17/2024 11:16 AM [facility] Total Bilirubin 0.9 0.0 - 1.4 mg/dL LAB CHEMISTRY METHOD 04/17/2024 11:16 AM [facility] Blood Venous blood specimen / Unknown Venipuncture / Unknown 04/17/2024 5:51 AM EST 04/17/2024 9:55 AM EST us Dallas Lewis MD LAB BLOOD ORDERABLES Final Resu lt [facility] [address] [place] [address], [place] [phone] * (ABNORMAL) Complete blood count (04/17/2024 5:51 AM EST) WBC 12.9(H) 4.8 - 10.8 K/mcL LAB HEMETOLOGY METHOD 04/17/2024 10:22 AM [facility] RBC 4.30 3.80 - 4.80 M/mcL LAB HEMETOLOGY METHOD 04/17/2024 10:22 AM [facility] Hemoglobin 12.2 11.5 - 16.0 g/dL LAB HEMETOLOGY METHOD 04/17/2024 10:22 AM [facility] Hematocrit 39.8 35.0 - 47.0 % LAB HEMETOLOGY METHOD 04/17/2024 10:22 AM [facility] MCV 92.3 79.0 - 98.0 FL LAB HEMETOLOGY METHOD 04/17/2024 10:22 AM [facility] MCH 28.3 27.0 - 32.0 pcg LAB HEMETOLOGY METHOD 04/17/2024 10:22 AM [facility] MCHC 30.7(L) 32.0 - 37.0 g/dL LAB HEMETOLOGY METHOD 04/17/2024 10:22 AM EST [facility] RDW 13.5 11.0 - 15.0 % LAB HEMETOLOGY METHOD 04/17/2024 10:22 AM [facility] Platelets 551(H) 130 - 400 K/mcL LAB HEMETOLOGY METHOD 04/17/2024 10:22 AM EST [facility] LAB MPV 9.6 7.0 - 11.0 FL LAB HEMETOLOGY METHOD 04/17/2024 10:22 AM EST [facility] LAB NRBC 0.0 <1.0 % LAB HEMETOLOGY METHOD 04/17/2024 10:22 AM [facility] NRBC Absolute 0.00 <0.10 K/mcL LAB HEMETOLOGY METHOD 04/17/2024 10:22 AM [facility] Blood Venous blood specimen / Unknown Venipuncture / Unknown 04/17/2024 5:51 AM EST 04/17/2024 9:57 AM EST us Dallas Lewis MD LAB BLOOD ORDERABLES Final Resu lt [facility] [address] [place] [address], documented in this encounter Visit Diagnoses Diagnosis Hypothyroidism, unspecified Age-related osteoporosis without current pathological fracture documented in this encounter Care Teams Mail Weigher Relationship Specialty Start Date End Date Dallas Lewis MD [address] [place] [id number] PCP - General Internal Medicine 04/07/24 documented as of this encounter
--- OUTSIDE RECORDS SUMMARY | 2024-04-21 15:02 | XMS_ITS | Clinical Summary ---
Author Organization [facility] Address [address] [place] [address] Phone Care Team Providers Care In Flight Crew Member Name Role Phone Dallas Lewis MD Primary Care Provider [phone] Encounters Date Type Department Care Team Description 04/19/2024 Lab Requisition [facility] Lab [address] [place] [phone] Dallas Lewis MD Hypothyroidism, unspecified; Age-related osteoporosis without current pathological fracture 04/15/2024 Lab Requisition [facility] Lab [address] [place] [phone] Dallas Lewis MD Hypothyroidism, unspecified; Age-related osteoporosis without current pathological fracture 04/12/2024 Lab Requisition [facility] Lab [address] [place] [phone] Dallas Lewis MD Hypothyroidism, unspecified; Age-related osteoporosis without current pathological fracture 04/08/2024 Lab Requisition [facility] Lab [address] [place] [phone] Dallas Lewis MD Hypothyroidism, unspecified; Age-related osteoporosis without current pathological fracture 04/07/2024 Lab Requisition [facility] Lab [address] [place] [phone] Dallas Lewis MD Hypothyroidism, unspecified; Age-related osteoporosis [...] K/mcL LAB HEMETOLOGY METHOD 04/17/2024 10:[address] [facility] RBC 4.30 3.80 - 4.80 M/mcL LAB HEMETOLOGY METHOD 04/17/2024 10:[address] [facility] Hemoglobin 12.2 11.5 - 16.0 g/dL LAB HEMETOLOGY METHOD 04/17/2024 10:[address] [facility] Hematocrit 39.8 35.0 - 47.0 % LAB HEMETOLOGY METHOD 04/17/2024 10:[address] [facility] MCV 92.3 79.0 - 98.0 FL LAB HEMETOLOGY METHOD 04/17/2024 10:[address] [facility] MCH 28.3 27.0 - 32.0 pcg LAB HEMETOLOGY METHOD 04/17/2024 10:[address] [facility] MCHC 30.7(L) 32.0 - 37.0 g/dL LAB HEMETOLOGY METHOD 04/17/2024 10:22 AM EST [facility] RDW 13.5 11.0 - 15.0 % LAB HEMETOLOGY METHOD 04/17/2024 10:[address] [facility] Platelets 551(H) 130 - 400 K/mcL LAB HEMETOLOGY METHOD 04/17/2024 10:22 AM EST [facility] MPV 9.6 7.0 - 11.0 FL LAB HEMETOLOGY METHOD 04/17/2024 10:22 AM EST [facility] NRBC 0.0 <1.0 % LAB HEMETOLOGY METHOD 04/17/2024 10:[address] [facility] NRBC Absolute 0.00 <0.10 K/mcL LAB HEMETOLOGY METHOD 04/17/2024 10:[address] [facility] Blood Venous blood specimen / Unknown Venipuncture / Unknown 04/17/2024 5:51 AM EST 04/17/2024 9:57 AM EST Dallas Lewis MD LAB BLOOD ORDERABLES Final Resu lt [facility] [address] [place] [address], * (ABNORMAL) Comprehensive metabolic panel (04/17/2024 5:51 AM EST) Only the most recent of3 resultswithin the time period is included. Sodium 138 133 - 145 mmol/L LAB CHEMISTRY METHOD 04/17/2024 11:16 AM EST [facility] Potassium 4.5 3.5 - 5.5 mmol/L LAB CHEMISTRY METHOD 04/17/2024 11:[address] [facility] Chloride 103 96 - 110 mmol/L LAB CHEMISTRY METHOD 04/17/2024 11:[address] [facility] CO2 29 21 - 32 mmol/L LAB CHEMISTRY METHOD 04/17/2024 11:[address] [facility] Anion Gap 6 3 - 11 LAB CHEMISTRY METHOD 04/17/2024 11:[address] [facility] Glucose 98 70 - 100 mg/dL LAB CHEMISTRY METHOD 04/17/2024 11:[address] [facility] BUN 14 5 - 25 mg/dL LAB CHEMISTRY METHOD 04/17/2024 11:[address] [facility] Creatinine 0.78 0.50 - 1.10 mg/dL LAB CHEMISTRY METHOD 04/17/2024 11:[address] [facility] eGFR 79 >=60 mL/min/1. 73m2 LAB CHEMISTRY METHOD 04/17/2024 11:[address] [facility] Comment:Calculation based on the??Chronic Kidney Disease Epidemiology Collaboration (CKD-EPI) equation refit??without adjustment for race. BUN/Creatinine Ratio 17.9 LAB CHEMISTRY METHOD 04/17/2024 11:[address] [facility] Calcium 9.2 8.5 - 10.5 mg/dL LAB CHEMISTRY METHOD 04/17/2024 11:[address] [facility] AST (SGOT) 112(H) 10 - 42 unit/L LAB CHEMISTRY METHOD 04/17/2024 11:[address] [facility] Comment:Results verified by repeat testing ALT (SGPT) 199(H) 10 - 60 unit/L LAB CHEMISTRY METHOD 04/17/2024 11:[address] [facility] Comment:Results verified by repeat testing Alkaline Phosphatase 168(H) 42 - 121 unit/L LAB CHEMISTRY METHOD 04/17/2024 11:[address] [facility] Comment:Results verified by repeat testing Total Protein 6.5 6.0 - 8.0 g/dL LAB CHEMISTRY METHOD 04/17/2024 11:[address] [facility] Albumin 3.5 3.2 - 5.0 g/dL LAB CHEMISTRY METHOD 04/17/2024 11:[address] [facility] Total Bilirubin 0.9 0.0 - 1.4 mg/dL LAB CHEMISTRY METHOD 04/17/2024 11:[address] [facility] Blood Venous blood specimen / Unknown Venipuncture / Unknown 04/17/2024 5:51 AM EST 04/17/2024 9:55 AM EST us Dallas Lewis MD LAB BLOOD ORDERABLES Final Resu lt [facility] [address] [place] [address], [place] [phone] * (ABNORMAL) Basic metabolic panel (04/13/2024 5:55 AM EST) Sodium 139 133 - 145 mmol/L LAB CHEMISTRY METHOD 04/13/2024 9:[address] [facility] Potassium 3.8 3.5 - 5.5 mmol/L LAB CHEMISTRY METHOD 04/13/2024 9:[address] [facility] Chloride 106 96 - 110 mmol/L LAB CHEMISTRY METHOD 04/13/2024 9:[address] [facility] CO2 25 21 - 32 mmol/L LAB CHEMISTRY METHOD 04/13/2024 9:[address] [facility] Anion Gap 8 3 - 11 LAB CHEMISTRY METHOD 04/13/2024 9:[address] [facility] Glucose 81 70 - 100 mg/dL LAB CHEMISTRY METHOD 04/13/2024 9:[address] [facility] BUN 11 5 - 25 mg/dL LAB CHEMISTRY METHOD 04/13/2024 9:[address] [facility] Creatinine 0.60 0.50 - 1.10 mg/dL LAB CHEMISTRY METHOD 04/13/2024 9:[address] [facility] eGFR 93 >=60 mL/min/1. 73m2 LAB CHEMISTRY METHOD 04/13/2024 9:49 AM EST [facility] Comment:Calculation based on the??Chronic Kidney Disease Epidemiology Collaboration (CKD-EPI) equation refit??without adjustment for race. BUN/Creatinine Ratio 18.3 LAB CHEMISTRY METHOD 04/13/2024 9:49 AM EST [facility] Calcium 8.3(L) 8.5 - 10.5 mg/dL LAB CHEMISTRY METHOD 04/13/2024 9:49 AM EST [facility] Blood Venous blood specimen / Unknown 04/13/2024 5:55 AM EST 04/13/2024 9:20 AM EST Dallas Lewis MD LAB BLOOD ORDERABLES Final Resu lt [facility] [address] [place] [address], from Last 3 Months Insurance MEDICARE [facility] Care Teams In Flight Crew Member Relationship Specialty Start Date End Date Dallas Lewis MD [address] [place] [address] PCP - General Internal Medicine 04/07/24
--- OUTSIDE RECORDS SUMMARY | 2024-04-21 15:02 | XMS_ITS | Encounter Summary ---
Author Organization [facility] Address [address] [place] [address] Care Team Providers Care Casing Crew Pusher Name Role Phone Dallas Lewis MD Primary Care Provider [phone] Encounter Details Date Type Department Care Team (Late st Contact Info) Description 04/07/2024 Lab Requisition [facility] - Main Lab [address] [facility] [place] [address] Dallas Lewis MD [address] [place] [phone] Hypothyroidism, unspecified; Age-related osteoporosis without current [...] LAB CHEMISTRY METHOD 04/07/2024 10:[address] [facility] Potassium 3.8 3.5 - 5.5 mmol/L LAB CHEMISTRY METHOD 04/07/2024 10:[address] [facility] Chloride 104 96 - 110 mmol/L LAB CHEMISTRY METHOD 04/07/2024 10:14 AM [facility] CO2 30 21 - 32 mmol/L LAB CHEMISTRY METHOD 04/07/2024 10:14 AM [facility] Anion Gap 5 3 - 11 LAB CHEMISTRY METHOD 04/07/2024 10:14 AM [facility] Glucose 84 70 - 100 mg/dL LAB CHEMISTRY METHOD 04/07/2024 10:14 AM [facility] BUN 22 5 - 25 mg/dL LAB CHEMISTRY METHOD 04/07/2024 10:14 AM [facility] Creatinine 0.61 0.50 - 1.10 mg/dL LAB CHEMISTRY METHOD 04/07/2024 10:14 AM [facility] LAB eGFR 93 >=60 mL/min/1. 73m2 LAB CHEMISTRY METHOD 04/07/2024 10:14 AM [facility] Comment:Calculation based on the??Chronic Kidney Disease Epidemiology Collaboration (CKD-EPI) equation refit??without adjustment for race. BUN/Creatinine Ratio 36.1 LAB CHEMISTRY METHOD 04/07/2024 10:14 AM [facility] Calcium 8.3(L) 8.5 - 10.5 mg/dL LAB CHEMISTRY METHOD 04/07/2024 10:14 AM [facility] AST (SGOT) 31 10 - 42 unit/L LAB CHEMISTRY METHOD 04/07/2024 10:14 AM [facility] ALT (SGPT) 24 10 - 60 unit/L LAB CHEMISTRY METHOD 04/07/2024 10:14 AM [facility] Alkaline Phosphatase 57 42 - 121 unit/L LAB CHEMISTRY METHOD 04/07/2024 10:14 AM [facility] Total Protein 4.9(L) 6.0 - 8.0 g/dL LAB CHEMISTRY METHOD 04/07/2024 10:14 AM [facility] Albumin 2.4(L) 3.2 - 5.0 g/dL LAB CHEMISTRY METHOD 04/07/2024 10:14 AM [facility] Total Bilirubin 0.9 0.0 - 1.4 mg/dL LAB CHEMISTRY METHOD 04/07/2024 10:14 AM [facility] Blood Venous blood specimen / Unknown Venipuncture / Unknown 04/07/2024 5:04 AM EST 04/07/2024 9:04 AM EST us Dallas Lewis MD LAB BLOOD ORDERABLES Final Resu lt [facility] [address] [place] [address], [place] [phone] * (ABNORMAL) Complete blood count (04/07/2024 5:04 AM EST) WBC 11.8(H) 4.8 - 10.8 K/mcL LAB HEMETOLOGY METHOD 04/07/2024 9:27 AM [facility] RBC 3.60(L) 3.80 - 4.80 M/mcL LAB HEMETOLOGY METHOD 04/07/2024 9:27 AM [facility] Hemoglobin 10.4(L) 11.5 - 16.0 g/dL LAB HEMETOLOGY METHOD 04/07/2024 9:27 AM [facility] Hematocrit 31.5(L) 35.0 - 47.0 % LAB HEMETOLOGY METHOD 04/07/2024 9:27 AM [facility] MCV 87.5 79.0 - 98.0 FL LAB HEMETOLOGY METHOD 04/07/2024 9:27 AM [facility] MCH 28.9 27.0 - 32.0 pcg LAB HEMETOLOGY METHOD 04/07/2024 9:27 AM [facility] MCHC 33.0 32.0 - 37.0 g/dL LAB HEMETOLOGY METHOD 04/07/2024 9:[address] [facility] RDW 13.2 11.0 - 15.0 % LAB HEMETOLOGY METHOD 04/07/2024 9:[address] [facility] Platelets 243 130 - 400 K/mcL LAB HEMETOLOGY METHOD 04/07/2024 9:[address] [facility] MPV 9.4 7.0 - 11.0 FL LAB HEMETOLOGY METHOD 04/07/2024 9:[address] [facility] NRBC 0.0 <1.0 % LAB HEMETOLOGY METHOD 04/07/2024 9:27 AM [facility] NRBC Absolute 0.00 <0.10 K/mcL LAB HEMETOLOGY METHOD 04/07/2024 9:27 AM [facility] Blood Venous blood specimen / Unknown Venipuncture / Unknown 04/07/2024 5:04 AM EST 04/07/2024 9:04 AM EST us Dallas Lewis MD LAB BLOOD ORDERABLES Final Resu lt [facility] [address] [place] [address], documented in this encounter Visit Diagnoses Diagnosis Hypothyroidism, unspecified Age-related osteoporosis without current pathological fracture documented in this encounter Care Teams Casing Crew Pusher Relationship Specialty Start Date End Date Dallas Lewis MD [address] [place] [address] PCP - General Internal Medicine 04/07/24 documented as of this encounter
--- OUTSIDE RECORDS SUMMARY | 2024-04-21 15:02 | XMS_ITS | Clinical Summary ---
Author Organization Unknown Care Team Providers Care Street Worker Name Role Phone PO INTERSTATE, LORENVER Unavailable Unavaila trisha YOUNGER RN, BENJAMÍN Unavailable Unavailab cain CONDE PT, JUANY Unavailable Unavailable CLOVIS ADVERTISING ASSISTANT, CHI Unavailable Unavailable SPAFFORD OT, JASMEET Unavailable Unavailable Payers Payer Name Policy Type Policy Number Effective Date Expira tion Date MEDICARE.[facility] [id number] Problems Condition Name Condition Details Condition Category [...] PHYSICIANS . RN TO OBSERVE AND ASSESS, SALES DEVELOPMENT MANAGER/RUG TOUCH UP PAINTER TO OBSERVE FOR RISK FOR FALLS AND INSTRUCT IN FALL PREVENTION, HOME SAFETY, MEDICATION MANAGEMENT, INFECTION PREVENTION, AND NUTRITION MANAGEMENT. RN/SALES DEVELOPMENT MANAGER/RUG TOUCH UP PAINTER NURSE MAY PERFORM O2 SATURATION LEVEL ON ADMISSION AND PRN FOR RN TO ASSESS/SALES DEVELOPMENT MANAGER TO OBSERVE PATIENT, WITH NOTIFICATION TO THE PHYSICIAN IF SATURATION IS 90% IN THE ABSENCE OF MORE SPECIFIC PARAMETERS FROM THE PHYSICIAN. AGENCY MAY PERFORM A RESUMPTION OF CARE VISIT FOLLOWING ANY HOSPITAL ADMISSION. RN/SALES DEVELOPMENT MANAGER/RUG TOUCH UP PAINTER TO MONITOR CO-MORBID CONDITIONS LISTED ON THE PLAN OF CARE AND ANY NEW CONDITIONS THAT PRESENT THEMSELVES DURING THIS EPISODE TO IDENTIFY CHANGES AND INTERVENE TO MINIMIZE COMPLICATIONS. [code = RN TO OBSERVE, ASSESS, EVALUATE, AND DEVELOP AN INDIVIDUALIZED PLAN OF CARE. AGENCY MAY ACCEPT ORDERS FROM CONSULTING PHYSICIANS . RN TO OBSERVE AND ASSESS, SALES DEVELOPMENT MANAGER/RUG TOUCH UP PAINTER TO OBSERVE FOR RISK FOR FALLS AND INSTRUCT IN FALL PREVENTION, HOME SAFETY, MEDICATION MANAGEMENT, INFECTION PREVENTION, AND NUTRITION MANAGEMENT. RN/SALES DEVELOPMENT MANAGER/RUG TOUCH UP PAINTER NURSE MAY PERFORM O2 SATURATION LEVEL ON ADMISSION AND PRN FOR RN TO ASSESS/SALES DEVELOPMENT MANAGER TO OBSERVE PATIENT, WITH NOTIFICATION TO THE PHYSICIAN IF SATURATION IS 90% IN THE ABSENCE OF MORE SPECIFIC PARAMETERS FROM THE PHYSICIAN. AGENCY MAY PERFORM A RESUMPTION OF CARE VISIT FOLLOWING ANY HOSPITAL ADMISSION. RN/SALES DEVELOPMENT MANAGER/RUG TOUCH UP PAINTER TO MONITOR CO-MORBID CONDITIONS LISTED ON THE PLAN OF CARE AND ANY NEW CONDITIONS THAT PRESENT THEMSELVES DURING THIS EPISODE TO IDENTIFY CHANGES AND INTERVENE TO MINIMIZE COMPLICATIONS.] Future Scheduled Test MEDICATION MANAGEMENT; RN/SALES DEVELOPMENT MANAGER/RUG TOUCH UP PAINTER TO REVIEW MEDICATIONS FOR INTERACTIONS, EFFECTIVENESS OF DRUG THERAPY, AND SIGNS/SYMPTOMS OF ADVERSE REACTIONS. MAY INSTRUCT AND REINFORCE MEDICATION TEACHING RELATED TO THE USE OF MEDICATIONS, DOSAGE, FREQUENCY, PURPOSE, SIDE EFFECTS, AND TO REPORT COMPLICATIONS. [code = MEDICATION MANAGEMENT; RN/SALES DEVELOPMENT MANAGER/RUG TOUCH UP PAINTER TO REVIEW MEDICATIONS FOR INTERACTIONS, EFFECTIVENESS OF DRUG THERAPY, AND SIGNS/SYMPTOMS OF ADVERSE REACTIONS. MAY INSTRUCT AND REINFORCE MEDICATION TEACHING RELATED TO THE USE OF MEDICATIONS, DOSAGE, FREQUENCY, PURPOSE, SIDE EFFECTS, AND TO REPORT COMPLICATIONS.] Future Scheduled Test INJECTION ADMINISTRATION; RN/SALES DEVELOPMENT MANAGER/RUG TOUCH UP PAINTER FOR ADMINISTRATION OF [place]OV[place] ROUTE SQ INJECTION EVERY DAY. CAREGIVER TO GIVE INJECTIONS ON NON-NURSING VISIT DAYS [code = INJECTION ADMINISTRATION; RN/SALES DEVELOPMENT MANAGER/RUG TOUCH UP PAINTER FOR ADMINISTRATION OF [place] ROUTE SQ INJECTION EVERY DAY. CAREGIVER TO GIVE INJECTIONS ON NON-NURSING VISIT DAYS ] Future Scheduled Test RISK FOR H OSPITALIZATION; RN TO ASSESS/TEACH, RUG TOUCH UP PAINTER/SALES DEVELOPMENT MANAGER TO OBSERVE/TEACH PATIENT/CAREGIVER ON RISK FOR HOSPITALIZATION/EMERGENCY ROOM VISITS, TEACH SIGNS AND SYMPTOMS THAT PUT PATIENT AT RISK, WHEN TO NOTIFY NURSE/PHYSICIAN OF COMPLICATIONS/DECLINE, AND WHEN TO CALL 911. [code = RISK FOR HOSPITALIZATION; RN TO ASSESS/TEACH, RUG TOUCH UP PAINTER/SALES DEVELOPMENT MANAGER TO OBSERVE/TEACH PATIENT/CAREGIVER ON RISK FOR HOSPITALIZATION/EMERGENCY ROOM VISITS, TEACH SIGNS AND SYMPTOMS THAT PUT PATIENT AT RISK, WHEN TO NOTIFY NURSE/PHYSICIAN OF COMPLICATIONS/DECLINE, AND WHEN TO CALL 911.] Future Scheduled Test RN/SALES DEVELOPMENT MANAGER/RUG TOUCH UP PAINTER TO PERFORM/TEACH INCISION CARE TO RIGHT HIP: MONITOR NON-REMOVABLE SURGICAL DRESSING. NOTIFY PROVIDER OF ANY ABNORMAL FINDINGS. [code = RN/SALES DEVELOPMENT MANAGER/RUG TOUCH UP PAINTER TO PERFORM/TEACH INCISION CARE TO RIGHT HIP: MONITOR NON-REMOVABLE SURGICAL DRESSING. NOTIFY PROVIDER OF ANY ABNORMAL FINDINGS. ] Future Scheduled Test PAIN MANAG EMENT; RN TO ASSESS AND TEACH, RUG TOUCH UP PAINTER/SALES DEVELOPMENT MANAGER TO OBSERVE AND TEACH AND PROVIDE EDUCATION ON PAIN MANAGEMENT TECHNIQUES. [code = PAIN MANAGEMENT; RN TO ASSESS AND TEACH, RUG TOUCH UP PAINTER/SALES DEVELOPMENT MANAGER TO OBSERVE AND TEACH AND PROVIDE EDUCATION ON PAIN MANAGEMENT TECHNIQUES.] Future Scheduled Test FALL REDUC TION MANAGEMENT; RN TO ASSESS AND OBSERVE, SALES DEVELOPMENT MANAGER/RUG TOUCH UP PAINTER TO OBSERVE FALL RISK FACTORS AND EDUCATE PATIENT/CAREGIVER ON STRATEGIES TO MINIMIZE THE RISK OF FALLING. [code = FALL REDUCTION MANAGEMENT; RN TO ASSESS AND OBSERVE, SALES DEVELOPMENT MANAGER/RUG TOUCH UP PAINTER TO OBSERVE FALL RISK FACTORS AND EDUCATE [...] End Date/Time Encounter Type Admission Type Attending [facility] Facility Care Department Encounter ID Discharge Date Discharge Status Discharge Condition Discharge Reason Percent Goals Met 2024-04-18 00:00:00 2024-06-16 00:00:00 Outpatient NEW ADMISSION BENJAMÍN [facility] [id number]
--- OUTSIDE RECORDS SUMMARY | 2024-04-21 15:02 | XMS_ITS | Encounter Summary ---
Author Organization [employer] [facility] Address [address] [place] [address] Care Team Providers Care Ncqa Specialist Name Role Phone Dallas Lewis MD Primary Care Provider [phone] Encounter Details Date Type Department Care Team (Late st Contact Info) Description 04/12/2024 Lab Requisition [facility] - Main Lab [address] [facility] [place] [address] Dallas Lewis MD [address] [place] [address] Hypothyroidism, unspecified; Age-related osteoporosis without current [...] LAB CHEMISTRY METHOD 04/13/2024 9:49 AM EST [facility] Potassium 3.8 3.5 - 5.5 mmol/L LAB CHEMISTRY METHOD 04/13/2024 9:49 AM EST [facility] Chloride 106 96 - 110 mmol/L LAB CHEMISTRY METHOD 04/13/2024 9:49 AM [facility] CO2 25 21 - 32 mmol/L LAB CHEMISTRY METHOD 04/13/2024 9:49 AM [facility] LAB Anion Gap 8 3 - 11 LAB CHEMISTRY METHOD 04/13/2024 9:49 AM [facility] Glucose 81 70 - 100 mg/dL LAB CHEMISTRY METHOD 04/13/2024 9:49 AM [facility] BUN 11 5 - 25 mg/dL LAB CHEMISTRY METHOD 04/13/2024 9:49 AM [facility] Creatinine 0.60 0.50 - 1.10 mg/dL LAB CHEMISTRY METHOD 04/13/2024 9:49 AM [facility] LAB eGFR 93 >=60 mL/min/1. 73m2 LAB CHEMISTRY METHOD 04/13/2024 9:49 AM [facility] Comment:Calculation based on the??Chronic Kidney Disease Epidemiology Collaboration (CKD-EPI) equation refit??without adjustment for race. BUN/Creatinine Ratio 18.3 LAB CHEMISTRY METHOD 04/13/2024 9:49 AM [facility] Calcium 8.3(L) 8.5 - 10.5 mg/dL LAB CHEMISTRY METHOD 04/13/2024 9:49 AM [facility] Blood Venous blood specimen / Unknown 04/13/2024 5:55 AM EST 04/13/2024 9:20 AM EST us Dallas Lewis MD LAB BLOOD ORDERABLES Final Resu lt [facility] [address] [place] [address], * (ABNORMAL) Complete blood count (04/13/2024 5:55 AM EST) WBC 7.6 4.8 - 10.8 K/mcL LAB HEMETOLOGY METHOD 04/13/2024 9:35 AM [facility] RBC 3.60(L) 3.80 - 4.80 M/mcL LAB HEMETOLOGY METHOD 04/13/2024 9:35 AM [facility] Hemoglobin 10.3(L) 11.5 - 16.0 g/dL LAB HEMETOLOGY METHOD 04/13/2024 9:35 AM [facility] Hematocrit 32.0(L) 35.0 - 47.0 % LAB HEMETOLOGY METHOD 04/13/2024 9:35 AM [facility] MCV 88.6 79.0 - 98.0 FL LAB HEMETOLOGY METHOD 04/13/2024 9:35 AM [facility] MCH 28.5 27.0 - 32.0 pcg LAB HEMETOLOGY METHOD 04/13/2024 9:35 AM [facility] MCHC 32.2 32.0 - 37.0 g/dL LAB HEMETOLOGY METHOD 04/13/2024 9:35 AM [facility] RDW 13.2 11.0 - 15.0 % LAB HEMETOLOGY METHOD 04/13/2024 9:35 AM [facility] Platelets 345 130 - 400 K/mcL LAB HEMETOLOGY METHOD 04/13/2024 9:35 AM [facility] MPV 9.3 7.0 - 11.0 FL LAB HEMETOLOGY METHOD 04/13/2024 9:35 AM [facility] NRBC 0.0 <1.0 % LAB HEMETOLOGY METHOD 04/13/2024 9:35 AM [facility] LAB NRBC Absolute 0.00 <0.10 K/mcL LAB HEMETOLOGY METHOD 04/13/2024 9:35 AM [facility] Blood Venous blood specimen / Unknown Venipuncture / Unknown 04/13/2024 5:55 AM EST 04/13/2024 9:16 AM EST Dallas Lewis MD LAB BLOOD ORDERABLES Final Resu lt [facility] [address] [place] [address], documented in this encounter Visit Diagnoses Diagnosis Hypothyroidism, unspecified Age-related osteoporosis without current pathological fracture documented in this encounter Care Teams Ncqa Specialist Relationship Specialty Start Date End Date Dallas Lewis MD [address] [place] [address] PCP - General Internal Medicine 04/07/24 documented as of this encounter
--- OUTSIDE RECORDS SUMMARY | 2024-04-21 15:02 | XMS_ITS | Encounter Summary ---
Author Organization [email or web address] Address [address] [place] [address] Care Team Providers Care Stock Parts Fabricator Name Role Phone Dallas Lewis MD Primary Care Provider [phone] Encounter Details Date Type Department Care Team (Late st Contact Info) Description 04/19/2024 Lab Requisition [facility] - Main Lab [address] [facility] [place] [address] Dallas Lewis MD [address] [place] [address] Hypothyroidism, unspecified; Age-related osteoporosis without [...] fracture documented in this encounter Care Teams Stock Parts Fabricator Relationship Specialty Start Date End Date Dallas Lewis MD [address] [place] [address] PCP - General Internal Medicine 04/07/24 documented as of this encounter
== END 2024-04-21 14:05 | disposition home or self-care (01) ==
LOC: HO.HOS 12:57
PROVIDERS: PCP Internal Medicine
DX: Z47.1 Aftercare following joint replacement surgery (principal); Z96.641 Presence of right artificial hip joint
CPT/HCPCS: 99024

== ENCOUNTER → 2024-04-21 12:58 | Outpatient (BNV) | payer MEDICARE, OTHER, SELFPAY | PROVIDERS: Visit Provider Radiology Diagnostic Radiology | DX: M25.551 Pain in right hip (principal) | CPT/HCPCS: 73502 ==

== ENCOUNTER 2024-05-15 08:17 | Outpatient (REF) | payer MEDICARE, OTHER, SELFPAY ==
--- NOTE | ~2024-05-15 | XR_ITS ---
EXAMINATION: XR HIP 2 OR MORE VIEWS RIGHT HISTORY: M25.551 - Pain in right hip COMPARISON: Comparison is made with the prior examination dated 04/21/2024. FINDINGS: A single AP view of the pelvis and two views of the right hip are submitted. The patient is again noted to be status post total hip arthroplasty. The orthopedic elements are in anatomic alignment. There is no radiographic evidence of loosening. There is no fracture or dislocation. The soft tissues are unremarkable. XR/XR hip RT min 2V IMPRESSION: Status post right total hip arthroplasty. Electronically signed by: Lizandro Huerta MD 05/16/2024 03:33 PM EDT
== END 2024-05-15 08:18 | disposition home or self-care (01) ==
LOC: HO.HOSX 08:17
DX: M25.551 Pain in right hip (principal); Z96.641 Presence of right artificial hip joint
CPT/HCPCS: 73502; 99212

== ENCOUNTER 2024-05-15 13:15 | Outpatient (AMB) | payer MEDICARE, OTHER, SELFPAY ==
--- NOTE | 2024-05-15 13:22 | MHC.OFFVIS ---
Intake Visit Reasons: PO- Right Hip Channing 04/04/24 NE Intake Note: Alis is a 74 year old female who presents today for a post operative visit s/p right hip hemiarthroplasty DOS: 04/05/24 w/ Dr Nelson Plasencia. Patient reports her hip is better but still mildly sore. She is still in PT and finds this helpful. At this time she states she has no concerns. Allergies Codeine-Guaifenesin Allergy (Unknown, Uncoded 05/15/24 13:29) rash shellfish Adverse Reaction (Mild, Uncoded 05/15/24 13:29) upset stomach HPI HPI PO- Right Hip Channing 04/04/24 NE: Details: Alis is a 74 year old female who presents today for a post operative visit s/p right hip hemiarthroplasty DOS: 04/05/24 w/ Dr Nelson Plasencia. Patient reports her hip is better but still mildly sore. She is still in PT and finds this helpful. Patient states that she is currently ambulating without the help of any cane or walker at Physical therapy's recommendation. At this time she states she has no concerns. [facility] Medical History Osteoporosis COVID Screening for diabetes mellitus Preop exam for internal medicine Osteoporosis GERD (gastroesophageal reflux disease) Hypothyroid Surgical History (Updated 04/06/24 @ 12:34 by Mariana Stone MD) History of tonsillectomy and adenoidectomy Social History Household Members: Spouse Housing: House Are you a primary vp care management to a significant other at home: No Do you presently have visiting nurse or other home services: No Alcohol intake: never Comment: once a year glass Patient Tobacco Use Status: Former Tobacco user Tobacco use type: Cigarette e-Cigarette/Vaping Use: Never Used Second Hand Smoke Exposure: No Advance Directives Date on File: 04/03/24 service: No Current occupational status: retired Cognitive needs: No Hearing needs: No Vision needs: Yes Review of Systems Const All systems reviewed & are unremarkable except as noted in HPI and below Physical Exam Extrem Other: Incision site on right hip pain,, intact, well healed No evidence of surrounding erythema, ecchymosis No evidence of infection Patient is able to flex and extend the digits of the left foot without difficulty Patient was able to ambulate without difficulty, no antalgia noted Compartments soft, nontender Distal sensation intact Capillary refill brisk Results Reviewed Results Reviewed: X-rays obtained in the office today and independently reviewed by me, Jaquan Berry PA-C, demonstrate right hip hemiarthroplasty with all orthopedic hardware in place and in satisfactory clinical alignment. Assessment & Plan Assessment & Plan (1) History of arthroplasty of right hip: Comment: March 2024 Code(s): Z96.641 - Presence of right artificial hip joint Category: Surgical Plan 1. Status post right hip hemiarthroplasty DOS 04/04/2024 Patient appears to be recovering well postoperatively Patient is educated about the typical recovery course this time, patient was informed that her x-rays are satisfactory, her recovery appears to be going very well Patient was educated she continue working with physical therapy Patient will follow-up in 6 weeks with repeat x-rays for reassessment, sooner with any acute concerns Orders: Orders XR hip RT min 2V Today M25.551 - Pain in right hip Coding Level of Care Code Global (15836) Diagnoses History of arthroplasty of right hip Z96.641
== END 2024-05-15 13:38 | disposition home or self-care (01) ==
LOC: HO.HOS 13:16
PROVIDERS: PCP Internal Medicine
DX: Z47.1 Aftercare following joint replacement surgery (principal); Z96.641 Presence of right artificial hip joint
CPT/HCPCS: 99024

== ENCOUNTER → 2024-05-15 13:19 | Outpatient (BNV) | payer MEDICARE, OTHER, SELFPAY | PROVIDERS: Visit Provider Radiology Diagnostic Radiology | DX: M25.551 Pain in right hip (principal) | CPT/HCPCS: 73502 ==

== ENCOUNTER 2024-06-26 08:09 | Outpatient (REF) | payer MEDICARE, OTHER, SELFPAY ==
--- NOTE | ~2024-06-26 | XR_ITS ---
CLINICAL HISTORY: M25.551 - Pain in right hip AP pelvis and two views of the right hip Comparison: CR - XR FEMUR RT 2V - 04/02/24 23:58 EST Findings: There has been interval placement of a right hip total arthroplasty in anatomic alignment. No evidence of hardware loosening. No periprosthetic fracture. No acute fracture deformity. No fracture of the visualized pelvis. The soft tissues are unremarkable. IMPRESSION: No acute findings. This document has been electronically signed by: Geoffrey Hadley MD on 06/26/2024 22:19:56
== END 2024-06-26 08:10 | disposition home or self-care (01) ==
LOC: HO.HOSX 08:09
DX: M25.551 Pain in right hip (principal); Z96.641 Presence of right artificial hip joint
CPT/HCPCS: 73502; 99212

== ENCOUNTER 2024-06-26 10:51 | Outpatient (AMB) | payer MEDICARE, OTHER, SELFPAY ==
[2024-06-26 10:52] VITALS: BMI 21.2
--- NOTE | 2024-06-26 10:52 | MHC.OFFVIS ---
Vital Signs 06/26/24 10:52 Height 5 ft 2 in Weight 116 lb BMI 21.2 Intake Visit Reasons: PO- Right Hip Channing 04/04/24 NE w xray Intake Note: Alis is a 74 year old female who presents today for a post operative visit s/p right hip hemiarthroplasty DOS: 04/05/24 w/ Dr Nelson Plasencia. Patient reports she is doing well. She has finished at home PT. Patient is not taking anything for pain at this time. Allergies Codeine-Guaifenesin Allergy (Unknown, Uncoded 06/26/24 10:53) rash shellfish Adverse Reaction (Mild, Uncoded 06/26/24 10:53) upset stomach HPI HPI PO- Right Hip Channing 04/04/24 NE w xray: Details: Alis is a 74 year old female who presents today for a post operative visit s/p right hip hemiarthroplasty DOS: 04/05/24 w/ Dr Nelson Plasencia. Patient reports she is doing well. She has finished PT. Patient is not taking anything for pain at this time. Patient reports that she does still occasionally use a cane for walking long distances, but otherwise does not require any assistive devices. Patient inquires if she is allowed to bend down to pick things up off the floor. [facility] Medical History Osteoporosis COVID Screening for diabetes mellitus Preop exam for internal medicine Osteoporosis GERD (gastroesophageal reflux disease) Hypothyroid Surgical History (Updated 04/06/24 @ 12:34 by Mariana Stone MD) History of tonsillectomy and adenoidectomy Social History Household Members: Spouse Housing: House Are you a primary home care coordinator to a significant other at home: No Do you presently have visiting nurse or other home services: No Alcohol intake: never Comment: once a year glass Patient Tobacco Use Status: Former Tobacco user Tobacco use type: Cigarette e-Cigarette/Vaping Use: Never Used Second Hand Smoke Exposure: No Advance Directives Date on File: 04/03/24 service: No Current occupational status: retired Cognitive needs: No Hearing needs: No Vision needs: Yes Review of Systems Const All systems reviewed & are unremarkable except as noted in HPI and below Physical Exam Vital Signs: BMI result Body Mass Index 21.2 Extrem Other: Incision site on right hip pain,, intact, well healed No evidence of surrounding erythema, ecchymosis No evidence of infection Patient is able to flex and extend the digits of the left foot without difficulty Patient was able to ambulate without difficulty, no antalgia noted Compartments soft, nontender Distal sensation intact Capillary refill brisk Results Reviewed Results Reviewed: X-rays obtained in the office today and independently reviewed by me, Jaquan Berry PA-C, demonstrate right hip hemiarthroplasty with all orthopedic hardware in place and in satisfactory clinical alignment. Assessment & Plan Assessment & Plan (1) History of arthroplasty of right hip: Comment: March 2024 Code(s): Z96.641 - Presence of right artificial hip joint Category: Surgical Plan 1. Status post right hip hemiarthroplasty DOS 04/04/2024 Patient appears to be recovering well postoperatively Patient is educated about the typical recovery course this time, patient was informed that her x-rays are satisfactory, her recovery appears to be going very well Patient is once again educated on posterior precautions, including avoiding crossing the right leg over the left, avoiding excessive internal rotation of the right lower extremity, and avoiding bending past 90 degrees Patient was educated she continue working with physical therapy in an outpatient setting Patient will follow-up in 3 months with repeat x-rays for reassessment, sooner with any acute concerns Orders: Orders XR hip RT min 2V Today M25.551 - Pain in right hip PT Evaluation and Treatment Today Z96.641 - Presence of right artificial hip joint Coding Level of Care Code Global (13719) Diagnoses History of arthroplasty of right hip Z96.641
--- OUTSIDE RECORDS SUMMARY | 2024-06-26 12:26 | XMS_ITS | Encounter Summary ---
Author Organization [employer] [facility] Address [address] [place] [address] Care Team Providers Care Television Anchor Name Role Phone Dallas Lewis MD Primary Care Provider [phone] Encounter Details Date Type Department Care Team (Late st Contact Info) Description 04/15/2024 Lab Requisition [facility] - Main Lab [address] [facility] [place] [address] Dallas Lewis MD [address] [place] [phone] Hypothyroidism, unspecified; Age-related osteoporosis without current [...] LAB CHEMISTRY METHOD 04/17/2024 11:16 AM EST [facility] Potassium 4.5 3.5 - 5.5 mmol/L LAB CHEMISTRY METHOD 04/17/2024 11:16 AM EST [facility] Chloride 103 96 - 110 mmol/L LAB CHEMISTRY METHOD 04/17/2024 11:16 AM [facility] CO2 29 21 - 32 mmol/L LAB CHEMISTRY METHOD 04/17/2024 11:16 AM [facility] Anion Gap 6 3 - 11 LAB CHEMISTRY METHOD 04/17/2024 11:16 AM [facility] Glucose 98 70 - 100 mg/dL LAB CHEMISTRY METHOD 04/17/2024 11:16 AM [facility] BUN 14 5 - 25 mg/dL LAB CHEMISTRY METHOD 04/17/2024 11:16 AM [facility] Creatinine 0.78 0.50 - 1.10 mg/dL LAB CHEMISTRY METHOD 04/17/2024 11:16 AM [facility] eGFR 79 >=60 mL/min/1. 73m2 LAB CHEMISTRY METHOD 04/17/2024 11:16 AM [facility] Comment:Calculation based on the??Chronic Kidney Disease Epidemiology Collaboration (CKD-EPI) equation refit??without adjustment for race. BUN/Creatinine Ratio 17.9 LAB CHEMISTRY METHOD 04/17/2024 11:16 AM [facility] Calcium 9.2 8.5 - 10.5 mg/dL LAB CHEMISTRY METHOD 04/17/2024 11:16 AM [facility] AST (SGOT) 112(H) 10 - 42 unit/L LAB CHEMISTRY METHOD 04/17/2024 11:16 AM [facility] Comment:Results verified by repeat testing ALT (SGPT) 199(H) 10 - 60 unit/L LAB CHEMISTRY METHOD 04/17/2024 11:16 AM [facility] Comment:Results verified by repeat testing Alkaline Phosphatase 168(H) 42 - 121 unit/L LAB CHEMISTRY METHOD 04/17/2024 11:16 AM [facility] Comment:Results verified by repeat testing Total Protein 6.5 6.0 - 8.0 g/dL LAB CHEMISTRY METHOD 04/17/2024 11:16 AM EST [facility] Albumin 3.5 3.2 - 5.0 g/dL LAB CHEMISTRY METHOD 04/17/2024 11:16 AM [facility] Total Bilirubin 0.9 0.0 - 1.4 mg/dL LAB CHEMISTRY METHOD 04/17/2024 11:16 AM [facility] Blood Venous blood specimen / Unknown Venipuncture / Unknown 04/17/2024 5:51 AM EST 04/17/2024 9:55 AM EST us Dallas Lewis MD LAB BLOOD ORDERABLES Final Resu lt [facility] [address] [place] [address], [place] [phone] * (ABNORMAL) Complete blood count (04/17/2024 5:51 AM EST) WBC 12.9(H) 4.8 - 10.8 K/mcL LAB HEMETOLOGY METHOD 04/17/2024 10:22 AM [facility] RBC 4.30 3.80 - 4.80 M/mcL LAB HEMETOLOGY METHOD 04/17/2024 10:22 AM [facility] Hemoglobin 12.2 11.5 - 16.0 g/dL LAB HEMETOLOGY METHOD 04/17/2024 10:22 AM [facility] Hematocrit 39.8 35.0 - 47.0 % LAB HEMETOLOGY METHOD 04/17/2024 10:22 AM [facility] MCV 92.3 79.0 - 98.0 FL LAB HEMETOLOGY METHOD 04/17/2024 10:22 AM [facility] MCH 28.3 27.0 - 32.0 pcg LAB HEMETOLOGY METHOD 04/17/2024 10:22 AM [facility] MCHC 30.7(L) 32.0 - 37.0 g/dL LAB HEMETOLOGY METHOD 04/17/2024 10:22 AM EST [facility] RDW 13.5 11.0 - 15.0 % LAB HEMETOLOGY METHOD 04/17/2024 10:22 AM [facility] Platelets 551(H) 130 - 400 K/mcL LAB HEMETOLOGY METHOD 04/17/2024 10:22 AM EST [facility] MPV 9.6 7.0 - 11.0 FL LAB HEMETOLOGY METHOD 04/17/2024 10:22 AM EST [facility] NRBC 0.0 <1.0 % LAB HEMETOLOGY METHOD 04/17/2024 10:22 AM [facility] NRBC Absolute 0.00 <0.10 K/mcL LAB HEMETOLOGY METHOD 04/17/2024 10:22 AM [facility] Blood Venous blood specimen / Unknown Venipuncture / Unknown 04/17/2024 5:51 AM EST 04/17/2024 9:57 AM EST us Dallas Lewis MD LAB BLOOD ORDERABLES Final Resu lt [facility] [address] [place] [address], documented in this encounter Visit Diagnoses Diagnosis Hypothyroidism, unspecified Age-related osteoporosis without current pathological fracture documented in this encounter Care Teams Television Anchor Relationship Specialty Start Date End Date Dallas Lewis MD [address] [place] [address] PCP - General Internal Medicine 04/07/24 documented as of this encounter
--- OUTSIDE RECORDS SUMMARY | 2024-06-26 12:26 | XMS_ITS | Patient Health Record ---
Author Organization [facility] Address [address] [place] [address] Care Team Providers Care Floor Finisher Helper Name Role Phone Mariana Stone MD Primary Care Provider Lizandro Aggarwal [phone] Reason For Referral No Information Encounters Encounter Location Date Provider Diagnosis [facility] [address] [place] [address] 04/27/2024 Lizandro Calvert Plan Of Treatment No Information Insurance Providers Payer Name Payer Address Payer Phone Subscriber Number Group Number Insured Name Patient Relationship to Insured Coverage Start Date Coverage End Date MEDIC[employer] OF [employer] [address] [facility] [place] [address] [id number] KEILA SORTO Self - patient is the insured [facility] [address] [place] [address] [phone] [id number] KEILA SORTO Self - patient is the insured
--- OUTSIDE RECORDS SUMMARY | 2024-06-26 12:27 | XMS_ITS ---
Author Organization [facility] Address [address] [place] [address] Care Team Providers Care Torch Heater Name Role Phone Mariana Stone MD Primary Care Provider Lizandro Aggarwal [phone] REASON FOR VISIT Patient presents today for a colon screening Encounters Encounter Location Date Provider Diagnosis [facility] [address] [address] 05/16/2024 Lizandro Calvert Plan Of Treatment No Information Progress Notes * KEILA SORTODOB:1949 (74 yo F)Acc No.[id number]:05/16/2024 Progress Notes Patient:?KEILA SORTO Provider:?Lizandro Calvert MD :1950???Age:74 Y???Sex:Female D ate:05/16/2024 Address:[address] [place], [place] [id number] Pcp:Mariana Stone MD Subjective: * Chief Complaints: * ???1. Patient presents today for a colon screening. * Medical History:? Objective: * Vitals:? Assessment: Plan: * Treatment: * * The named appointment provid er may or may not be the originator of this progress note, and it is not deemed complete until electronically signed by the appointment provider. Sign off status: Pending * Provider:?Lizandro Calvert MD Date:? 025 Generated for Kyara farrell/Faodilong/eTransmitting on:?06/26/2024 12:26 PM EDT
--- OUTSIDE RECORDS SUMMARY | 2024-06-26 12:27 | XMS_ITS | Encounter Summary ---
Author Organization [employer] Address [address] [place] [address] Care Team Providers Care Plant Etiologist Name Role Phone Dallas Lewis MD Primary Care Provider [phone] Encounter Details Date Type Department Care Team (Late st Contact Info) Description 04/19/2024 Lab Requisition [facility] - Main Lab [address] [facility] [place] [address] Dallas Lewis MD [address] [place] [address] Hypothyroidism, unspecified; Age-related osteoporosis without [...] fracture documented in this encounter Care Teams Plant Etiologist Relationship Specialty Start Date End Date Dallas Lewis MD [address] [place] [address] PCP - General Internal Medicine 04/07/24 documented as of this encounter
--- OUTSIDE RECORDS SUMMARY | 2024-06-26 12:27 | XMS_ITS | Encounter Summary ---
Author Organization [employer] [facility] Address [address] [place] [address] Care Team Providers Care Geophysical Engineer Name Role Phone Dallas Lewis MD Primary Care Provider [phone] Encounter Details Date Type Department Care Team (Late st Contact Info) Description 04/12/2024 Lab Requisition [facility] - Main Lab [address] [facility] [place] [address] Dallas Lewis MD [address] [place] [phone] Hypothyroidism, unspecified; Age-related osteoporosis without current [...] LAB CHEMISTRY METHOD 04/13/2024 9:49 AM EST [facility] Potassium 3.8 3.5 - 5.5 mmol/L LAB CHEMISTRY METHOD 04/13/2024 9:49 AM EST [facility] Chloride 106 96 - 110 mmol/L LAB CHEMISTRY METHOD 04/13/2024 9:[address] [facility] CO2 25 21 - 32 mmol/L LAB CHEMISTRY METHOD 04/13/2024 9:[address] [facility] Anion Gap 8 3 - 11 LAB CHEMISTRY METHOD 04/13/2024 9:[address] [facility] Glucose 81 70 - 100 mg/dL LAB CHEMISTRY METHOD 04/13/2024 9:[address] [facility] BUN 11 5 - 25 mg/dL LAB CHEMISTRY METHOD 04/13/2024 9:[address] [facility] Creatinine 0.60 0.50 - 1.10 mg/dL LAB CHEMISTRY METHOD 04/13/2024 9:[address] [facility] eGFR 93 >=60 mL/min/1. 73m2 LAB CHEMISTRY METHOD 04/13/2024 9:[address] [facility] Comment:Calculation based on the??Chronic Kidney Disease Epidemiology Collaboration (CKD-EPI) equation refit??without adjustment for race. BUN/Creatinine Ratio 18.3 LAB CHEMISTRY METHOD 04/13/2024 9:[address] [facility] Calcium 8.3(L) 8.5 - 10.5 mg/dL LAB CHEMISTRY METHOD 04/13/2024 9:[address] [facility] Blood Venous blood specimen / Unknown 04/13/2024 5:55 AM EST 04/13/2024 9:20 AM EST us Dallas Lewis MD LAB BLOOD ORDERABLES Final Resu lt [facility] [address] [place] [address], * (ABNORMAL) Complete blood count (04/13/2024 5:55 AM EST) WBC 7.6 4.8 - 10.8 K/mcL LAB HEMETOLOGY METHOD 04/13/2024 9:[address] [facility] RBC 3.60(L) 3.80 - 4.80 M/mcL LAB HEMETOLOGY METHOD 04/13/2024 9:[address] [facility] Hemoglobin 10.3(L) 11.5 - 16.0 g/dL LAB HEMETOLOGY METHOD 04/13/2024 9:[address] [facility] Hematocrit 32.0(L) 35.0 - 47.0 % LAB HEMETOLOGY METHOD 04/13/2024 9:[address] [facility] MCV 88.6 79.0 - 98.0 FL LAB HEMETOLOGY METHOD 04/13/2024 9:[address] [facility] MCH 28.5 27.0 - 32.0 pcg LAB HEMETOLOGY METHOD 04/13/2024 9:[address] [facility] MCHC 32.2 32.0 - 37.0 g/dL LAB HEMETOLOGY METHOD 04/13/2024 9:[address] [facility] RDW 13.2 11.0 - 15.0 % LAB HEMETOLOGY METHOD 04/13/2024 9:[address] [facility] Platelets 345 130 - 400 K/mcL LAB HEMETOLOGY METHOD 04/13/2024 9:[address] [facility] MPV 9.3 7.0 - 11.0 FL LAB HEMETOLOGY METHOD 04/13/2024 9:[address] [facility] NRBC 0.0 <1.0 % LAB HEMETOLOGY METHOD 04/13/2024 9:[address] [facility] NRBC Absolute 0.00 <0.10 K/mcL LAB HEMETOLOGY METHOD 04/13/2024 9:[address] [facility] Blood Venous blood specimen / Unknown Venipuncture / Unknown 04/13/2024 5:55 AM EST 04/13/2024 9:16 AM EST Dallas Lewis MD LAB BLOOD ORDERABLES [facility] [address] [place] [address], documented in this encounter Visit Diagnoses Diagnosis Hypothyroidism, unspecified Age-related osteoporosis without current pathological fracture documented in this encounter Care Teams Geophysical Engineer Relationship Specialty Start Date End Date Dallas Lewis MD [address] [place] [address] PCP - General Internal Medicine 04/07/24 documented as of this encounter
--- OUTSIDE RECORDS SUMMARY | 2024-06-26 12:27 | XMS_ITS | Clinical Summary ---
Author Organization [address] [facility] Address [address] [place] [address] Phone Care Team Providers Care Wildlife Biologist Name Role Phone Dallas Lewis MD Primary Care Provider [phone] Encounters Date Type Department Care Team Description 04/19/2024 Lab Requisition [facility] Lab [address] [place] [phone] Dallas Lewis MD Hypothyroidism, unspecified; Age-related osteoporosis without current pathological fracture 04/15/2024 Lab Requisition [facility] Lab [address] [place] [phone] Dallas Lewis MD Hypothyroidism, unspecified; Age-related osteoporosis without current pathological fracture 04/12/2024 Lab Requisition [facility] Lab [address] [place] [phone] Dallas Lewis MD Hypothyroidism, unspecified; Age-related osteoporosis without current pathological fracture 04/08/2024 Lab Requisition [facility] Lab [address] [place] [phone] Dallas Lewis MD Hypothyroidism, unspecified; Age-related osteoporosis without current pathological fracture 04/07/2024 Lab Requisition [facility] Lab [address] [place] [phone] Dallas Lewis MD Hypothyroidism, unspecified; Age-related osteoporosis [...] Vaccines (1 of 2) 02/15/1998 RSV Immunization Adult Patie nts (1 - 1-dose 75+ series) 02/15/2023 COVID-19 Vaccine (1 - 2023-2 5 season) 2023 Depression Screening 04/07/2024 Falls Risk Assessment 04/07/2024 Hepatitis C Screening 04/07/2024 Medicare Annual Wellness Visit 04/07/2024 Osteoporosis Screening (Bone Density Screening) 04/07/2024 Social Influencers of Health Screening 04/07/2024 Influenza Vaccine (Season Ended) 2024 HIB Vaccines Aged Out No longer eligi [...] age to complete this topic Meningococcal B Vaccine Aged Out No l onger eligible based on patient's age to complete [...] K/mcL LAB HEMETOLOGY METHOD 04/17/2024 10:22 AM [facility] LAB RBC 4.30 3.80 - 4.80 M/mcL LAB HEMETOLOGY METHOD 04/17/2024 10:22 AM [facility] LAB Hemoglobin 12.2 11.5 - 16.0 g/dL LAB HEMETOLOGY METHOD 04/17/2024 10:22 AM [facility] LAB Hematocrit 39.8 35.0 - 47.0 % LAB HEMETOLOGY METHOD 04/17/2024 10:22 AM [facility] LAB MCV 92.3 79.0 - 98.0 FL LAB HEMETOLOGY METHOD 04/17/2024 10:22 AM [facility] LAB MCH 28.3 27.0 - 32.0 pcg LAB HEMETOLOGY METHOD 04/17/2024 10:22 AM [facility] LAB MCHC 30.7(L) 32.0 - 37.0 g/dL LAB HEMETOLOGY METHOD 04/17/2024 10:22 AM EST [facility] LAB RDW 13.5 11.0 - 15.0 % LAB HEMETOLOGY METHOD 04/17/2024 10:22 AM [facility] LAB Platelets 551(H) 130 - 400 K/mcL LAB HEMETOLOGY METHOD 04/17/2024 10:22 AM EST [facility] LAB MPV 9.6 7.0 - 11.0 FL LAB HEMETOLOGY METHOD 04/17/2024 10:22 AM EST [facility] LAB NRBC 0.0 <1.0 % [facility] 04/17/2024 10:22 AM [facility] LAB NRBC Absolute 0.00 <0.10 K/mcL LAB HEMETOLOGY METHOD 04/17/2024 10:22 AM [facility] LAB Blood Venous blood specimen / Unknown Venipuncture / Unknown 04/17/2024 5:51 AM EST 04/17/2024 9:57 AM EST us Dallas Lewis MD LAB BLOOD ORDERABLES Final Resu lt [facility] LAB [address] [place] [address], * (ABNORMAL) Comprehensive metabolic panel (04/17/2024 5:51 AM EST) Only the most recent of3 resultswithin the time period is included. Sodium 138 133 - 145 mmol/L LAB CHEMISTRY METHOD 04/17/2024 11:16 AM [facility] LAB Potassium 4.5 3.5 - 5.5 mmol/L LAB CHEMISTRY METHOD 04/17/2024 11:16 AM [facility] LAB Chloride 103 96 - 110 mmol/L LAB CHEMISTRY METHOD 04/17/2024 11:16 AM [facility] LAB CO2 29 21 - 32 mmol/L LAB CHEMISTRY METHOD 04/17/2024 11:16 AM [facility] LAB Anion Gap 6 3 - 11 LAB CHEMISTRY METHOD 04/17/2024 11:16 AM [facility] LAB Glucose 98 70 - 100 mg/dL LAB CHEMISTRY METHOD 04/17/2024 11:16 AM [facility] LAB BUN 14 5 - 25 mg/dL LAB CHEMISTRY METHOD 04/17/2024 11:16 AM [facility] LAB Creatinine 0.78 0.50 - 1.10 mg/dL LAB CHEMISTRY METHOD 04/17/2024 11:16 AM [facility] LAB eGFR 79 >=60 mL/min/1. 73m2 LAB CHEMISTRY METHOD 04/17/2024 11:16 AM [facility] LAB Comment:Calculation based on the??Chronic Kidney Disease Epidemiology Collaboration (CKD-EPI) equation refit??without adjustment for race. BUN/Creatinine Ratio 17.9 LAB CHEMISTRY METHOD 04/17/2024 11:16 AM [facility] LAB Calcium 9.2 8.5 - 10.5 mg/dL LAB CHEMISTRY METHOD 04/17/2024 11:16 AM [facility] LAB AST (SGOT) 112(H) 10 - 42 unit/L LAB CHEMISTRY METHOD 04/17/2024 11:16 AM [facility] LAB Comment:Results verified by repeat testing ALT (SGPT) 199(H) 10 - 60 unit/L LAB CHEMISTRY METHOD 04/17/2024 11:16 AM [facility] LAB Comment:Results verified by repeat testing Alkaline Phosphatase 168(H) 42 - 121 unit/L LAB CHEMISTRY METHOD 04/17/2024 11:16 AM [facility] LAB Comment:Results verified by repeat testing Total Protein 6.5 6.0 - 8.0 g/dL LAB CHEMISTRY METHOD 04/17/2024 11:16 AM [facility] LAB Albumin 3.5 3.2 - 5.0 g/dL LAB CHEMISTRY METHOD 04/17/2024 11:16 AM [facility] LAB Total Bilirubin 0.9 0.0 - 1.4 mg/dL LAB CHEMISTRY METHOD 04/17/2024 11:16 AM [facility] LAB Blood Venous blood specimen / Unknown Venipuncture / Unknown 04/17/2024 5:51 AM EST 04/17/2024 9:55 AM EST us Dallas Lewis MD LAB BLOOD ORDERABLES Final Resu lt [facility] LAB [address] [place] [address], [place] [phone] * (ABNORMAL) Basic metabolic panel (04/13/2024 5:55 AM EST) Sodium 139 133 - 145 mmol/L LAB CHEMISTRY METHOD 04/13/2024 9:49 AM [facility] LAB Potassium 3.8 3.5 - 5.5 mmol/L LAB CHEMISTRY METHOD 04/13/2024 9:49 AM [facility] LAB Chloride 106 96 - 110 mmol/L LAB CHEMISTRY METHOD 04/13/2024 9:49 AM [facility] LAB CO2 25 21 - 32 mmol/L LAB CHEMISTRY METHOD 04/13/2024 9:49 AM [facility] LAB Anion Gap 8 3 - 11 LAB CHEMISTRY METHOD 04/13/2024 9:49 AM [facility] LAB Glucose 81 70 - 100 mg/dL LAB CHEMISTRY METHOD 04/13/2024 9:49 AM [facility] LAB BUN 11 5 - 25 mg/dL LAB CHEMISTRY METHOD 04/13/2024 9:49 AM [facility] LAB Creatinine 0.60 0.50 - 1.10 mg/dL LAB CHEMISTRY METHOD 04/13/2024 9:49 AM [facility] LAB eGFR 93 >=60 mL/min/1. 73m2 LAB CHEMISTRY METHOD 04/13/2024 9:49 AM EST [facility] LAB Comment:Calculation based on the??Chronic Kidney Disease Epidemiology Collaboration (CKD-EPI) equation refit??without adjustment for race. BUN/Creatinine Ratio 18.3 LAB CHEMISTRY METHOD 04/13/2024 9:49 AM EST [facility] LAB Calcium 8.3(L) 8.5 - 10.5 mg/dL LAB CHEMISTRY METHOD 04/13/2024 9:49 AM EST [facility] LAB Blood Venous blood specimen / Unknown 04/13/2024 5:55 AM EST 04/13/2024 9:20 AM EST us Dallas Lewis MD LAB BLOOD ORDERABLES Final Resu lt [facility] LAB [address] [place] [address], from Last 3 Months Insurance MEDICARE [facility] Care Teams Wildlife Biologist Relationship Specialty Start Date End Date Dallas Lewis MD [address] [place] [address] PCP - General Internal Medicine 04/07/24
--- OUTSIDE RECORDS SUMMARY | 2024-06-26 12:27 | XMS_ITS | Encounter Summary ---
Author Organization [employer] [facility] Address [address] [place] [address] Care Team Providers Care Supervisory It Specialist Name Role Phone Dallas Lewis MD Primary Care Provider [phone] Encounter Details Date Type Department Care Team (Late st Contact Info) Description 04/07/2024 Lab Requisition [facility] Lab [address] [facility] [place] [address] Dallas Lewis MD [address] [place] [phone] Hypothyroidism, unspecified; Age-related osteoporosis without current [...] LAB CHEMISTRY METHOD 04/07/2024 10:14 AM EST [facility] LAB Potassium 3.8 3.5 - 5.5 mmol/L LAB CHEMISTRY METHOD 04/07/2024 10:14 AM EST [facility] LAB Chloride 104 96 - 110 mmol/L LAB CHEMISTRY METHOD 04/07/2024 10:14 AM [facility] LAB CO2 30 21 - 32 mmol/L LAB CHEMISTRY METHOD 04/07/2024 10:14 AM [facility] LAB Anion Gap 5 3 - 11 LAB CHEMISTRY METHOD 04/07/2024 10:14 AM [facility] LAB Glucose 84 70 - 100 mg/dL LAB CHEMISTRY METHOD 04/07/2024 10:14 AM [facility] LAB BUN 22 5 - 25 mg/dL LAB CHEMISTRY METHOD 04/07/2024 10:14 AM [facility] LAB Creatinine 0.61 0.50 - 1.10 mg/dL LAB CHEMISTRY METHOD 04/07/2024 10:14 AM [facility] LAB eGFR 93 >=60 mL/min/1. 73m2 LAB CHEMISTRY METHOD 04/07/2024 10:14 AM [facility] LAB Comment:Calculation based on the??Chronic Kidney Disease Epidemiology Collaboration (CKD-EPI) equation refit??without adjustment for race. BUN/Creatinine Ratio 36.1 LAB CHEMISTRY METHOD 04/07/2024 10:14 AM [facility] LAB Calcium 8.3(L) 8.5 - 10.5 mg/dL LAB CHEMISTRY METHOD 04/07/2024 10:14 AM [facility] LAB AST (SGOT) 31 10 - 42 unit/L LAB CHEMISTRY METHOD 04/07/2024 10:14 AM [facility] LAB ALT (SGPT) 24 10 - 60 unit/L LAB CHEMISTRY METHOD 04/07/2024 10:14 AM [facility] LAB Alkaline Phosphatase 57 42 - 121 unit/L LAB CHEMISTRY METHOD 04/07/2024 10:14 AM [facility] LAB Total Protein 4.9(L) 6.0 - 8.0 g/dL LAB CHEMISTRY METHOD 04/07/2024 10:14 AM [facility] LAB Albumin 2.4(L) 3.2 - 5.0 g/dL LAB CHEMISTRY METHOD 04/07/2024 10:14 AM [facility] LAB Total Bilirubin 0.9 0.0 - 1.4 mg/dL LAB CHEMISTRY METHOD 04/07/2024 10:14 AM [facility] LAB Blood Venous blood specimen / Unknown Venipuncture / Unknown 04/07/2024 5:04 AM EST 04/07/2024 9:04 AM EST us Dallas Lewis MD LAB BLOOD ORDERABLES Final Resu lt [facility] LAB [address] [place] [address], [place] [phone] * (ABNORMAL) Complete blood count (04/07/2024 5:04 AM EST) WBC 11.8(H) 4.8 - 10.8 K/mcL LAB HEMETOLOGY METHOD 04/07/2024 9:27 AM [facility] LAB RBC 3.60(L) 3.80 - 4.80 M/mcL LAB HEMETOLOGY METHOD 04/07/2024 9:27 AM [facility] LAB Hemoglobin 10.4(L) 11.5 - 16.0 g/dL LAB HEMETOLOGY METHOD 04/07/2024 9:27 AM [facility] LAB Hematocrit 31.5(L) 35.0 - 47.0 % LAB HEMETOLOGY METHOD 04/07/2024 9:27 AM [facility] LAB MCV 87.5 79.0 - 98.0 FL LAB HEMETOLOGY METHOD 04/07/2024 9:27 AM [facility] LAB MCH 28.9 27.0 - 32.0 pcg LAB HEMETOLOGY METHOD 04/07/2024 9:27 AM [facility] LAB MCHC 33.0 32.0 - 37.0 g/dL LAB HEMETOLOGY METHOD 04/07/2024 9:27 AM EST [facility] LAB RDW 13.2 11.0 - 15.0 % LAB HEMETOLOGY METHOD 04/07/2024 9:27 AM EST [facility] LAB Platelets 243 130 - 400 K/mcL LAB HEMETOLOGY METHOD 04/07/2024 9:27 AM EST [facility] LAB MPV 9.4 7.0 - 11.0 FL LAB HEMETOLOGY METHOD 04/07/2024 9:27 AM EST [facility] LAB NRBC 0.0 <1.0 % LAB HEMETOLOGY METHOD 04/07/2024 9:27 AM [facility] LAB NRBC Absolute 0.00 <0.10 K/mcL LAB HEMETOLOGY METHOD 04/07/2024 9:27 AM [facility] LAB Blood Venous blood specimen / Unknown Venipuncture / Unknown 04/07/2024 5:04 AM EST 04/07/2024 9:04 AM EST us Dallas Lewis MD LAB BLOOD ORDERABLES Final Resu lt [facility] LAB [address] [place] [address], documented in this encounter Visit Diagnoses Diagnosis Hypothyroidism, unspecified Age-related osteoporosis without current pathological fracture documented in this encounter Care Teams Supervisory It Specialist Relationship Specialty Start Date End Date Dallas Lewis MD [address] [place] [address] PCP - General Internal Medicine 04/07/24 documented as of this encounter
--- OUTSIDE RECORDS SUMMARY | 2024-06-26 12:27 | XMS_ITS | Encounter Summary ---
Author Organization [employer] [facility] Address [address] [place] [address] Care Team Providers Care Anesthesiology Fellow Name Role Phone Dallas Lewis MD Primary Care Provider [phone] Encounter Details Date Type Department Care Team (Late st Contact Info) Description 04/08/2024 Lab Requisition [facility] - Main Lab [address] [facility] [employer] [place] [address] Dallas Lewis MD [address] [place] [phone] Hypothyroidism, unspecified; Age-related osteoporosis without current [...] LAB CHEMISTRY METHOD 04/10/2024 10:55 AM EST [facility] LAB Potassium 4.2 3.5 - 5.5 mmol/L LAB CHEMISTRY METHOD 04/10/2024 10:55 AM EST [facility] LAB Chloride 105 96 - 110 mmol/L LAB CHEMISTRY METHOD 04/10/2024 10:55 AM [facility] LAB CO2 27 21 - 32 mmol/L LAB CHEMISTRY METHOD 04/10/2024 10:55 AM [facility] LAB Anion Gap 9 3 - 11 LAB CHEMISTRY METHOD 04/10/2024 10:55 AM [facility] LAB Glucose 86 70 - 100 mg/dL LAB CHEMISTRY METHOD 04/10/2024 10:55 AM [facility] LAB BUN 14 5 - 25 mg/dL LAB CHEMISTRY METHOD 04/10/2024 10:55 AM [facility] LAB Creatinine 0.68 0.50 - 1.10 mg/dL LAB CHEMISTRY METHOD 04/10/2024 10:55 AM [facility] LAB eGFR 90 >=60 mL/min/1. 73m2 LAB CHEMISTRY METHOD 04/10/2024 10:55 AM [facility] LAB Comment:Calculation based on the??Chronic Kidney Disease Epidemiology Collaboration (CKD-EPI) equation refit??without adjustment for race. BUN/Creatinine Ratio 20.6 LAB CHEMISTRY METHOD 04/10/2024 10:55 AM [facility] LAB Calcium 8.4(L) 8.5 - 10.5 mg/dL LAB CHEMISTRY METHOD 04/10/2024 10:55 AM [facility] LAB AST (SGOT) 34 10 - 42 unit/L LAB CHEMISTRY METHOD 04/10/2024 10:55 AM [facility] LAB ALT (SGPT) 28 10 - 60 unit/L LAB CHEMISTRY METHOD 04/10/2024 10:55 AM [facility] LAB Alkaline Phosphatase 59 42 - 121 unit/L LAB CHEMISTRY METHOD 04/10/2024 10:55 AM [facility] LAB Total Protein 5.2(L) 6.0 - 8.0 g/dL LAB CHEMISTRY METHOD 04/10/2024 10:55 AM [facility] LAB Albumin 2.6(L) 3.2 - 5.0 g/dL LAB CHEMISTRY METHOD 04/10/2024 10:55 AM [facility] LAB Total Bilirubin 0.8 0.0 - 1.4 mg/dL LAB CHEMISTRY METHOD 04/10/2024 10:55 AM [facility] LAB Blood Venous blood specimen / Unknown Venipuncture / Unknown 04/10/2024 5:54 AM EST 04/10/2024 9:51 AM EST us Dallas Lewis MD LAB BLOOD ORDERABLES Final Resu lt [facility] LAB [address] [place] [address], * (ABNORMAL) Complete blood count (04/10/2024 5:54 AM EST) WBC 8.5 4.8 - 10.8 K/mcL LAB HEMETOLOGY METHOD 04/10/2024 10:21 AM [facility] LAB RBC 3.70(L) 3.80 - 4.80 M/mcL LAB HEMETOLOGY METHOD 04/10/2024 10:21 AM [facility] LAB Hemoglobin 10.7(L) 11.5 - 16.0 g/dL LAB HEMETOLOGY METHOD 04/10/2024 10:21 AM [facility] LAB Hematocrit 32.7(L) 35.0 - 47.0 % LAB HEMETOLOGY METHOD 04/10/2024 10:21 AM [facility] LAB MCV 88.6 79.0 - 98.0 FL LAB HEMETOLOGY METHOD 04/10/2024 10:21 AM [facility] LAB MCH 29.0 27.0 - 32.0 pcg LAB HEMETOLOGY METHOD 04/10/2024 10:21 AM [facility] LAB MCHC 32.7 32.0 - 37.0 g/dL LAB HEMETOLOGY METHOD 04/10/2024 10:21 AM EST [facility] LAB RDW 13.0 11.0 - 15.0 % LAB HEMETOLOGY METHOD 04/10/2024 10:21 AM EST [facility] LAB Platelets 328 130 - 400 K/mcL LAB HEMETOLOGY METHOD 04/10/2024 10:21 AM [facility] LAB MPV 9.2 7.0 - 11.0 FL LAB HEMETOLOGY METHOD 04/10/2024 10:21 AM EST [facility] LAB NRBC 0.0 <1.0 % LAB HEMETOLOGY METHOD 04/10/2024 10:21 AM [facility] LAB NRBC Absolute 0.00 <0.10 K/mcL LAB HEMETOLOGY METHOD 04/10/2024 10:21 AM [facility] LAB Blood Venous blood specimen / Unknown Venipuncture / Unknown 04/10/2024 5:54 AM EST 04/10/2024 9:54 AM EST us Dallas Lewis MD LAB BLOOD ORDERABLES Final Resu lt [facility] LAB [address] [place] [address], documented in this encounter Visit Diagnoses Diagnosis Hypothyroidism, unspecified Age-related osteoporosis without current pathological fracture documented in this encounter Care Teams Anesthesiology Fellow Relationship Specialty Start Date End Date Dallas Lewis MD [address] [place] [address] PCP - General Internal Medicine 04/07/24 documented as of this encounter
--- OUTSIDE RECORDS SUMMARY | 2024-06-26 12:27 | XMS_ITS ---
Author Organization [facility] Address [address] [place] [phone] Care Team Providers Care Cardiology Clinical Consultant Name Role Phone Mariana Stone MD Primary Care Provider Lizandro Aggarwal [phone] REASON FOR VISIT cancel appt on 05/16/2024 Encounters Encounter Location Date Provider Diagnosis [facility] [address] [place] [phone] 04/27/2024 Lizandro Calvert Plan Of Treatment No Information Progress Notes * KEILA SORTODOB:1949 (74 yo F)Acc No.[id number]:04/27/2024 Patient:?NOREEN KEILA :1950???Age:74 Y???Sex:Female Address:[address] [place] [address], [address] * true * Date:? Generated for Vasquezi jami/Hawa/eTransmitting on:?06/26/2024 12:26 PM EDT
== END 2024-06-26 11:17 | disposition home or self-care (01) ==
LOC: HO.HOS 10:51
PROVIDERS: PCP Internal Medicine
DX: Z47.89 Encounter for other orthopedic aftercare (principal); Z96.641 Presence of right artificial hip joint
CPT/HCPCS: 99024

== ENCOUNTER → 2024-06-26 10:52 | Outpatient (BNV) | payer MEDICARE, OTHER, SELFPAY | PROVIDERS: Visit Provider Radiology Diagnostic Radiology | DX: M25.551 Pain in right hip (principal) | CPT/HCPCS: 73502 ==

== ENCOUNTER 2024-09-27 10:53 | Outpatient (REF) | payer MEDICARE, OTHER, SELFPAY ==
--- NOTE | ~2024-09-27 | XR_ITS ---
EXAMINATION: XR HIP, RIGHT CLINICAL INFORMATION: M25.551 - Pain in right hip COMPARISON: 06/26/2024, 05/15/2024, 04/21/2024. TECHNIQUE: AP pelvis, and single view right hip. FINDINGS: AP view of the pelvis demonstrates intact pelvis without fracture or bone lesion. Redemonstration of a total right hip arthroplasty in anatomic alignment. Prosthetic elements are well seated, without periprosthetic lucency or fracture. No subsidence. No change in the overall appearance. No soft tissue abnormalities. XR/XR hip RT min 2V IMPRESSION: Right hip arthroplasty without complication evident. Electronically signed by: Leonidas Pugh MD 09/27/2024 12:40 PM EDT
--- OUTSIDE RECORDS SUMMARY | 2024-09-27 11:36 | XMS_ITS | Patient Health Record ---
Author Organization [facility] Address [address] [place] [address] Care Team Providers Care Bioinformatics Team Member Name Role Phone Mariana Stone MD Primary Care Provider Lizandro Aggarwal [phone] Reason For Referral No Information Encounters Encounter Location Date Provider Diagnosis [facility] [address] [place] [address] 04/27/2024 Lizandro Calvert Plan Of Treatment No Information Insurance Providers Payer Name Payer Address Payer Phone Subscriber Number Group Number Insured Name Patient Relationship to Insured Coverage Start Date Coverage End Date [place] [address] [place] [address] [id number] KEILA SORTO Self - patient is the insured [facility] [address] [place] [address] [id number] KEILA SORTO Self - patient is the insured
--- OUTSIDE RECORDS SUMMARY | 2024-09-27 11:36 | XMS_ITS | Encounter Summary ---
Author Organization [employer] [facility] Address [address] [place] [address] Care Team Providers Care Enterprise Analyst Name Role Phone Dallas Lewis MD Primary Care Provider [phone] Encounter Details Date Type Department Care Team (Late st Contact Info) Description 04/15/2024 Lab Requisition [facility] - Main Lab [address] [place] [address] Dallas Lewis MD [address] [place] [phone] Hypothyroidism, unspecified; Age-related osteoporosis without current [...] mmol/L LAB CHEMISTRY METHOD 04/17/2024 11:16 AM [facility] CO2 29 21 - 32 mmol/L LAB CHEMISTRY METHOD 04/17/2024 11:16 AM [facility] Anion Gap 6 3 - 11 LAB CHEMISTRY METHOD 04/17/2024 11:16 AM [facility] Glucose 98 70 - 100 mg/dL LAB CHEMISTRY METHOD 04/17/2024 11:16 AM [facility] BUN 14 5 - 25 mg/dL LAB CHEMISTRY METHOD 04/17/2024 11:16 AM [facility] Creatinine 0.78 0.50 - 1.10 mg/dL LAB CHEMISTRY METHOD 04/17/2024 11:16 AM [facility] eGFR 79 >=60 mL/min/1. 73m2 LAB CHEMISTRY METHOD 04/17/2024 11:16 AM [facility] Comment:Calculation based on the Chronic Kidney Disease Epidemiology Collaboration (CKD-EPI) equation refit without adjustment for race. BUN/Creatinine Ratio 17.9 LAB CHEMISTRY METHOD 04/17/2024 11:16 AM [facility] Calcium 9.2 8.5 - 10.5 mg/dL LAB CHEMISTRY METHOD 04/17/2024 11:16 AM [facility] AST (SGOT) 112(H) 10 - 42 unit/L LAB CHEMISTRY METHOD 04/17/2024 11:16 AM [facility] Comment:Results verified by repeat testing ALT (SGPT) 199(H) 10 - 60 unit/L LAB CHEMISTRY METHOD 04/17/2024 11:16 AM [facility] Comment:Results verified by repeat testing Alkaline Phosphatase 168(H) 42 - 121 unit/L LAB CHEMISTRY METHOD 04/17/2024 11:16 AM [facility] Comment:Results verified by repeat testing Total Protein 6.5 6.0 - 8.0 g/dL LAB CHEMISTRY METHOD 04/17/2024 11:16 AM [facility] Albumin 3.5 3.2 - 5.0 g/dL LAB CHEMISTRY METHOD 04/17/2024 11:16 AM [facility] Total Bilirubin 0.9 0.0 - 1.4 mg/dL LAB CHEMISTRY METHOD 04/17/2024 11:16 AM [facility] Blood Venous blood specimen / Unknown Venipuncture / Unknown 04/17/2024 5:51 AM EST 04/17/2024 9:55 AM EST us Dallas Lewis MD LAB BLOOD ORDERABLES Final Resu lt [facility] [address] [place] [address], [place] [phone] * (ABNORMAL) Complete blood count (04/17/2024 5:51 AM EST) WBC 12.9(H) 4.8 - 10.8 K/mcL LAB HEMETOLOGY METHOD 04/17/2024 10:22 AM [facility] RBC 4.30 3.80 - 4.80 M/mcL LAB HEMETOLOGY METHOD 04/17/2024 10:22 AM [facility] Hemoglobin 12.2 11.5 - 16.0 g/dL LAB HEMETOLOGY METHOD 04/17/2024 10:22 AM [facility] Hematocrit 39.8 35.0 - 47.0 % LAB HEMETOLOGY METHOD 04/17/2024 10:22 AM [facility] MCV 92.3 79.0 - 98.0 FL LAB HEMETOLOGY METHOD 04/17/2024 10:22 AM [facility] MCH 28.3 27.0 - 32.0 pcg LAB HEMETOLOGY METHOD 04/17/2024 10:22 AM [facility] MCHC 30.7(L) 32.0 - 37.0 g/dL LAB HEMETOLOGY METHOD 04/17/2024 10:[address] [facility] RDW 13.5 11.0 - 15.0 % LAB HEMETOLOGY METHOD 04/17/2024 10:22 AM [facility] Platelets 551(H) 130 - 400 K/mcL LAB HEMETOLOGY METHOD 04/17/2024 10:[address] [facility] MPV 9.6 7.0 - 11.0 FL LAB HEMETOLOGY METHOD 04/17/2024 10:[address] [facility] NRBC 0.0 <1.0 % LAB HEMETOLOGY METHOD 04/17/2024 10:22 AM [facility] NRBC Absolute 0.00 <0.10 K/mcL LAB HEMETOLOGY METHOD 04/17/2024 10:22 AM [facility] Blood Venous blood specimen / Unknown Venipuncture / Unknown 04/17/2024 5:51 AM EST 04/17/2024 9:57 AM EST Dallas Lewis MD LAB BLOOD ORDERABLES Final Resu lt [facility] [address] [place] [address], documented in this encounter Visit Diagnoses Diagnosis Hypothyroidism, unspecified Age-related osteoporosis without current pathological fracture documented in this encounter Care Teams Enterprise Analyst Relationship Specialty Start Date End Date Dallas Lewis MD [address] [place] [phone] PCP - General Internal Medicine 04/07/24 documented as of this encounter
== END 2024-09-27 10:54 | disposition home or self-care (01) ==
LOC: HO.HOSX 10:53
DX: T84.84XA Pain due to internal orthopedic prosthetic devices, implants and grafts, initial encounter (principal); Z96.641 Presence of right artificial hip joint
CPT/HCPCS: 73502; 99212

== ENCOUNTER 2024-09-27 10:59 | Outpatient (AMB) | payer MEDICARE, OTHER, SELFPAY ==
--- NOTE | 2024-09-27 11:19 | A.OFFVIS_ITS ---
Intake Visit Reasons: OV- Right Hip Channing 04/04/24 NE w xray Intake Note: Alis is a 74 year old female who presents today post-operatively status post right hip hemiarthroplasty, DOS: 04/05/[address] Plasencia. At her last visit, 06/26/24, patient was educated on posterior precautions, including avoiding crossing the right leg over the left, avoiding excessive internal rotation of the right lower extremity, and avoiding bending past 90 degrees. She was advised to continue working with physical therapy in an outpatient setting. Patient reports physical therapy has finished, with improvement in movements. She continues doing exercises at home. No futher concerns at this time. Allergies Codeine-Guaifenesin Allergy (Unknown, Uncoded 06/26/24 10:53) rash shellfish Adverse Reaction (Mild, Uncoded 06/26/24 10:53) upset stomach HPI HPI OV- Right Hip Channing 04/04/24 NE w xray: Details: Alis is a 74 year old female who presents today post-operatively status post right hip hemiarthroplasty, DOS: 04/05/[address] Plasencia. At her last visit, 06/26/24, patient was educated on posterior precautions, including avoiding crossing the right leg over the left, avoiding excessive internal rotation of the right lower extremity, and avoiding bending past 90 degrees. She was advised to continue working with physical therapy in an outpatient setting. Patient reports physical therapy has finished, with improvement in movements. She continues doing exercises at home. No futher concerns at this time. [facility] Medical History Osteoporosis COVID Screening for diabetes mellitus Preop exam for internal medicine Osteoporosis GERD (gastroesophageal reflux disease) Hypothyroid Surgical History (Updated 04/06/24 @ 12:34 by Mariana Stone MD) History of tonsillectomy and adenoidectomy Social History Household Members: Spouse Housing: House Are you a primary manager intensive care to a significant other at home: No Do you presently have visiting nurse or other home services: No Alcohol intake: never Comment: once a year glass Patient Tobacco Use Status: Former Tobacco user Tobacco use type: Cigarette e-Cigarette/Vaping Use: Never Used Second Hand Smoke Exposure: No Advance Directives Date on File: 04/03/24 service: No Current occupational status: retired Cognitive needs: No Hearing needs: No Vision needs: Yes Review of Systems Const All systems reviewed & are unremarkable except as noted in HPI and below Physical Exam Extrem Other: Incision site on right hip pain,, intact, well healed No evidence of surrounding erythema, ecchymosis No evidence of infection Patient is able to flex and extend the digits of the left foot without difficulty Patient was able to ambulate without difficulty, no antalgia noted Compartments soft, nontender Distal sensation intact Capillary refill brisk Results Reviewed Results Reviewed: X-rays obtained in the office today and independently reviewed by me, Jaquan Berry PA-C, demonstrate right hip hemiarthroplasty with all orthopedic hardware in place and in satisfactory clinical alignment. Assessment & Plan Assessment & Plan (1) History of arthroplasty of right hip: Comment: March 2024 Code(s): Z96.641 - Presence of right artificial hip joint Category: Surgical Plan 1. Status post right hip hemiarthroplasty DOS 04/04/2024 Patient appears to be recovering well postoperatively Patient is educated about the typical recovery course this time, patient was informed that her x-rays are satisfactory, her recovery appears to be going very well Patient is once again educated on posterior precautions, including avoiding crossing the right leg over the left, avoiding excessive internal rotation of the right lower extremity, and avoiding bending past 90 degrees Patient was educated she continue working with physical therapy in an outpatient setting Patient will follow-up in 6 months with repeat x-rays for reassessment, sooner with any acute concerns Orders: Orders XR hip RT min 2V 09/27/24 M25.551 - Pain in right hip Coding Level of Care Code Est Pt Level 3 (36944) Diagnoses History of arthroplasty of right hip Z96.641
== END 2024-09-27 11:37 | disposition home or self-care (01) ==
LOC: HO.HOS 11:00
DX: Z47.89 Encounter for other orthopedic aftercare (principal); Z96.641 Presence of right artificial hip joint
CPT/HCPCS: 99213

== ENCOUNTER → 2024-09-27 11:09 | Outpatient (BNV) | payer MEDICARE, OTHER, SELFPAY | PROVIDERS: Visit Provider Radiology Diagnostic Radiology | DX: M25.551 Pain in right hip (principal) | CPT/HCPCS: 73502 ==

== ENCOUNTER 2025-01-04 10:51 | Outpatient (AMB) | payer MEDICARE, OTHER, SELFPAY ==
--- NOTE | 2025-01-04 10:55 | AM.OFFVISMDC ---
Intake Vital Signs 01/04/25 10:57 Height 5 ft 2 in Weight 110 lb 6 oz BMI 20.2 BP 130/80 Blood Pressure Location Lt brachial Position Sitting Pulse 93 Pulse Source Pulse Oximeter Temp 97.3 F Temp Source Temporal Artery Scan Pulse Oximetry (%) 98 Oxygen Delivery Method Room Air Intake Visit Reasons: AWV Allergies Codeine-Guaifenesin Allergy (Unknown, Uncoded 01/04/25 11:06) rash shellfish Adverse Reaction (Mild, Uncoded 01/04/25 11:06) upset stomach Medication List - Last Reconciled 01/04/25 by Yvette Zabala PA-C thyroid (pork) ([place] Thyroid) 60 mg PO DAILY@0600 HPI AWV HPI Details 74 year old female with past medical history of GERD last seen 02/2024 coming in for AWV. In review of the notes, patient was seen by ortho 09/2024 s/o R hemiarthroplasty 04/04/2024 doing well and plan for 6 month follow up. Patient is feeling generally well and has no acute concerns today. She would like to start back on her exercise program with walking on the treadmill but is unsure due to her right hip replacement. She did complete physical therapy and has continued with the exercises provided from their service. mammogram: declined colonoscopy: declined DEXA: declined vaccines: [facility] Medical History (Updated 01/04/25 @ 11:21 by Yvette Zabala PA-C) Hypothyroid Osteoporosis COVID Screening for diabetes mellitus Preop exam for internal medicine Osteoporosis GERD (gastroesophageal reflux disease) Surgical History History of tonsillectomy and adenoidectomy Social History Household Members: Spouse Housing: House Are you a primary day care provider to a significant other at home: No Do you presently have visiting nurse or other home services: No Alcohol intake: never Comment: once a year glass Patient Tobacco Use Status: Former Tobacco user Tobacco use type: Cigarette e-Cigarette/Vaping Use: Never Used Second Hand Smoke Exposure: No Advance Directives Date on File: 04/03/24 service: No Current occupational status: retired Cognitive needs: No Hearing needs: No Vision needs: Yes Questionnaire Medicare Wellness Checkup [age] What gender do you identify with?: female During the past 4 weeks, how much have you been bothered by emotional problems such as feeling anxious, depressed, irritable, sad or downhearted, and blue?: not at all During the past 4 weeks, has your physical & emotional health limited your social activities with family, friends, neighbors, or groups?: not at all During the past 4 weeks, how much bodily pain have you generally had?: no pain During the past 4 weeks, was someone available to help you if you needed & wanted help?: yes, as much as I wanted During the past 4 weeks, what was the hardest physical activity you could do for at least 2 minutes?: heavy Can you get to places out of walking distance without help? (For eg., can you travel alone on buses, taxis or drive your car?): Yes Can you go shopping for groceries or clothes without someone's help?: Yes Can you prepare your own meals?: Yes Can you do your housework without help?: Yes Because of any health problems, do you need the help of another person with your personal care needs such as eating, bathing, dressing or getting around the house?: No Can you handle your own money without help?: Yes During the past 4 weeks, how would you rate your health in general?: excellent During the past 4 weeks how have things been going for you?: very well; could hardly better Are you having difficulties driving your car?: no Do you always fasten your seat belt when you are in a car?: yes, usually During past 4 weeks, have you been bothered by the following: never: Falling or dizzy when standing up, Sexual problems?, Trouble eating well?, Teeth or denture problems?, Problems using the telephone? and Tiredness or fatigue? Have you fallen 2 or more times in the past year?: No Are you afraid of falling?: No Are you a smoker?: no During the past 4 weeks, how many drinks of wine, beer, or other alcoholic beverages did you have?: no alcohol at all Do you exercise for about 20 minutes 3 or more times a week?: yes, most of the time Have you been given information to help with the following?: no: Hazards in your house that might hurt you? and no: Keeping track of your medications? How often do you have trouble taking medicines the way you have been told to take them?: I always take medicine as prescribed How confident are you that you can control & manage most of your health problems?: very confident What is your race?: White Mini Mental State Exam (MMSE) Orientation What is the (year) (season) (date) (day) (month)?: year, season, date, day and month Where are we (state) (county) (town or city) (hospital) (floor)?: state, county, town or city, hospital/clinic and floor Score Score: 10 Activity of Daily Living Bathing - sponge bath, tub bath or shower: receives no assistance (gets in/out by self, if usual bathing means Dressing - getting clothes from closets & drawers, including inner/outer garments & fasteners.: gets clothes & gets completely dressed without help Toileting - going to the 'toilet room' for urine/bowel elimination & cleaning self/arranging clothes: goes to toilet room, cleans self, arranges clothes without help Transfer: moves in & out of bed and chair without help (may use support object) Continence: controls urination/bowel movements completely by self Feeding: feeds self without help Total Score: 0 Information obtained from: patient Using telephone: independent Traveling: independent Shopping: independent Preparing meals: independent Housework: independent Taking medicine: independent Managing money: independent PHQ-9 Over the last 2 weeks, how often have you been bothered by any of the following problems? 1. Little interest or pleasure in doing things: not at all 2. Feeling down, depressed, or hopeless: not at all 3. Trouble falling or staying asleep, or sleeping too much: not at all 4. Feeling tired or having little energy: not at all 5. Poor appetite or overeating: not at all 6. Feeling bad about yourself - or that you are a failure or have let yourself or your family down: not at all 7. Trouble concentrating on things, such as reading the newspaper or watching television: not at all 8. Moving or speaking so slowly that other people could have noticed. Or the opposite - being so fidgety or restless that you have been moving around a lot more than usual: not at all 9. Thoughts that you would be better off or of hurting yourself in some way: not at all Total score: 0 Depression Screening Interpretation: Negative Depression Screening Done: Yes Source: Developed by Drs. Lizandro Vergara, Laila Chua, Feliberto Lange and colleagues, with an educational milton from [employer]. Review of Systems Const Denies body aches, Denies fatigue, Denies fever(s), Denies frequent falls, Denies headache(s) and Denies weakness Eyes Reports no additional complaints and Denies change in vision ENT Denies dysphagia, Denies dizziness, Denies facial pain, Denies headache(s), Denies nasal congestion and Denies odynophagia Card Denies chest pain, Denies syncope, Denies irregular heart rhythm, Denies leg edema, Denies lightheadedness and Denies dyspnea Resp Denies cough and Denies dyspnea GI Denies constipation, Denies dysphagia, Denies dyspepsia, Denies diarrhea, Denies nausea, Denies odynophagia and Denies vomiting Denies urinary frequency, Denies dysuria, Denies urinary hesitancy and Denies urinary urgency Musc Denies back pain and Denies myalgias Skin/Breast Reports system reviewed and no additional complaints, except as documented Neuro Denies dizziness, Denies syncope, Denies frequent falls, Denies headache(s) and Denies weakness Psych Reports no additional complaints Endo Denies fatigue Physical Exam Vital Signs: Last Vital Signs Temp 97.3 F 01/04/25 10:57 Pulse 93 01/04/25 10:57 BP 130/80 01/04/25 10:57 Pulse Ox 98 01/04/25 10:57 Oxygen Delivery Method Room Air 01/04/25 10:57 BMI result Body Mass Index 20.2 Const General: cooperative, healthy appearing, comfortable and no acute distress Orientation/consciousness: patient oriented x3 HEENT Head: Yes normocephalic Ears: hearing grossly normal bilaterally, external ears normal, TM's normal bilaterally and EAC's normal General nose exam: Normal external nose present Face and sinus: Yes normal facial exam and Yes sinuses nontender Mouth: Normal oral and palatal mucosa present and tongue normal Throat: Yes posterior oropharynx normal Eyes General: appearance normal, both eyes and all related structures Conjunctivae: conjunctivae normal Pupils: Equal, round and reactive pupils present EOM: EOMs intact bilaterally and No Nystagmus present Neck Neck: Yes normal visual inspection, Yes full ROM and Yes no lymphadenopathy Chest Chest palpation & inspection: normal inspection of the chest Resp Effort & Inspection: normal respiratory effort Auscultation: clear to auscultation bilaterally, no crackles, no rales, no rhonchi, no wheezes and breath sounds present Cardio Rate: regular rate Rhythm: regular rhythm Peripheral pulses: radial pulses present and dorsalis pedis present GI Inspection: Yes normal to inspection and No Abdominal wall edema Palpation (GI): Soft to palpation, not firm and nontender Auscultation: normal bowel sounds Rectal Exam - Female: deferred General: Yes no CVA tenderness Back/Spine/Pelvis Back: no CVA tenderness Skin General skin exam: no rashes or lesions noted Neuro General: patient oriented x3 Cranial nerves: Yes Equal, round and reactive pupils present, Yes Midline tongue present, Yes Ability to bilaterally elevate shoulders present and No Nystagmus present Gait exam (Neuro): Normal gait present Extrem General: Yes normal to inspection, Yes full ROM, No no pedal edema and No edema Psych Speech and movement: Normal speech and movement present Affect: normal affect Insight: Good insight present (Psych) Judgement: Good judgement present (Psych) Assessment & Plan Assessment & Plan (1) Medicare annual wellness visit, subsequent: Code(s): Z00.00 - Encounter for general adult medical examination without abnormal findings Plan: [place] of care was reviewed with patient patient was provided with a written screening schedule. MOLST form was reviewed with patient patient advised to bring completed forms to office to be scanned to chart. Healthy diet and regular exercise is encouraged. Ordered for updated blood work. Plan to follow up yearly or sooner as needed or pending blood work evaluation. (2) Hypothyroid: Code(s): E03.9 - Hypothyroidism, unspecified Qualifiers: Hypothyroidism type: acquired Qualified Code(s): E03.9 - Hypothyroidism, unspecified Plan: Continue on current dose of [place] thyroid and plan for updated blood work (3) Mammogram declined: Code(s): Z53.20 - Procedure and treatment not carried out because of patient's decision for unspecified reasons Plan: Declining mammogram screening understands the risks of not having this performed. (4) Blood pressure elevated without history of HTN: Code(s): R03.0 - Elevated blood-pressure reading, without diagnosis of hypertension Plan: Blood pressure in the office WNL. Avoid salt intake and encourage healthy diet and regular exercise. (5) GERD (gastroesophageal reflux disease): Code(s): K21.9 - Gastro-esophageal reflux disease without esophagitis Qualifiers: Esophagitis presence: without esophagitis Qualified Code(s): K21.9 - Gastro-esophageal reflux disease without esophagitis Plan: Avoid trigger foods such as citrus, tomato products, soda, caffeine, spicy foods and other foods that may be irritating to your stomach. Avoid laying flat 3-4 hours after eating and elevate the head of the bed 30 degrees to prevent acid from moving into the esophagus. (6) Colonoscopy refused: Code(s): Z53.20 - Procedure and treatment not carried out because of patient's decision for unspecified reasons Plan: Declining colonoscopy or Cologuard testing and understands the risks of not having this performed. (7) History of arthroplasty of right hip: Comment: March 2024 Code(s): Z96.641 - Presence of right artificial hip joint Plan: Doing well and she will continue to follow with her orthopedic surgeon. Discussed with the patient per last orthopedic note no activity restrictions were given at that time. Activity as tolerated and any concerns to reach out to her surgeon (8) Osteoporosis: Comment: November 2017 Code(s): M81.0 - Age-related osteoporosis without current pathological fracture Plan: No recent bone density screenings discussed this with the patient. She is declining DEXA screening at this time and considering it for next year. Not currently on treatment. Recommend dietary intake of calcium 1200 mg adding vitamin-D supplement and to regimen. Patient will consider endocrinology referral Plan This note was constructed using voice recognition software. While every effort has been made to ensure accuracy and brush washer, still areas may have been included sometimes these areas may affect the content or meeting of the given symptoms. Total time spent caring for the patient today was 30 minutes. This includes time spent before the visit reviewing the chart, time spent during the visit, and time spent after the visit and documentation. Orders: Orders TSH reflex Free T4 01/09/25 Z13.29 - Encounter for screening for other suspected endocrine disorder Vitamin B12 and Folate 01/09/25 Z13.21 - Encounter for screening for nutritional disorder Comprehensive Met. Panel 01/09/25 Z00.00 - Encounter for general adult medical examination without abnormal findings, K21.9 - Gastro-esophageal reflux disease without esophagitis Lipid Panel 01/09/25 E78.00 - Pure hypercholesterolemia, unspecified Vitamin D 25-OH Total 01/09/25 Z13.21 - Encounter for screening for nutritional disorder Complete Blood Count Auto Diff 01/09/25 Z13.0 - Encounter for screening for diseases of the blood and blood-forming organs and certain disorders involving the immune mechanism, K21.9 - Gastro-esophageal reflux disease without esophagitis Quality Reporting (2019) Depression/Bipolar (159/160/161/177) PHQ-9: Total score: 0 Coding Level of Care Code Medicare Subsequent (G0439) Diagnoses Medicare annual wellness visit, subsequent Z00.00 Acquired hypothyroidism E03.9 Hypothyroidism type: acquired Mammogram declined Z53.20 Blood pressure elevated without history of HTN R03.0 Gastroesophageal reflux disease without esophagitis K21.9 Esophagitis presence: without esophagitis Colonoscopy refused Z53.20 History of arthroplasty of right hip Z96.641 Osteoporosis M81.0 CPT Codes Advance Care Planning - Time spent: 1-15 minutes, not on file ([id number]) Advance Care Planning Advance Care Planning discussion: Completed/Scanned Date of discussion: 01/04/25 Who was present: Patient, myself Forms completed: TRICIA Time spent: 1-15 minutes, not on file Actual minutes spent: 3 Did not discuss due to Cultural/Spiritual beliefs: No
[2025-01-04 10:57] VITALS: BP 130/80; PULSE 93; TEMP 36.3; O2SAT 98; BMI 20.2
--- OUTSIDE RECORDS SUMMARY | 2025-01-04 13:29 | XMS_ITS | Encounter Summary ---
Author Organization [facility] [employer] [facility] Address [address] [place] [address] Care Team Providers Care Drawing Tracer Name Role Phone Dallas Lewis MD Primary Care Provider [phone] Encounter Details Date Type Department Care Team (Late st Contact Info) Description 04/07/[address] [facility] - Main Lab [address] [facility] [place] [address] Dallas Lewis MD [address] [place] [phone] Hypothyroidism, unspecified; Age-related osteoporosis without current [...] mmol/L LAB CHEMISTRY METHOD 04/07/2024 10:14 AM [facility] CO2 30 21 - 32 mmol/L LAB CHEMISTRY METHOD 04/07/2024 10:14 AM [facility] Anion Gap 5 3 - 11 LAB CHEMISTRY METHOD 04/07/2024 10:14 AM [facility] Glucose 84 70 - 100 mg/dL LAB CHEMISTRY METHOD 04/07/2024 10:14 AM [facility] BUN 22 5 - 25 mg/dL LAB CHEMISTRY METHOD 04/07/2024 10:14 AM [facility] Creatinine 0.61 0.50 - 1.10 mg/dL LAB CHEMISTRY METHOD 04/07/2024 10:14 AM [facility] eGFR 93 >=60 mL/min/1. 73m2 LAB CHEMISTRY METHOD 04/07/2024 10:14 AM [facility] Comment:Calculation based on the Chronic Kidney Disease Epidemiology Collaboration (CKD-EPI) equation refit without adjustment for race. BUN/Creatinine Ratio 36.1 LAB CHEMISTRY METHOD 04/07/2024 10:14 AM [facility] Calcium 8.3(L) 8.5 - 10.5 mg/dL LAB CHEMISTRY METHOD 04/07/2024 10:14 AM [facility] AST (SGOT) 31 10 - 42 unit/L LAB CHEMISTRY METHOD 04/07/2024 10:14 AM [facility] ALT (SGPT) 24 10 - 60 unit/L LAB CHEMISTRY METHOD 04/07/2024 10:14 AM [facility] Alkaline Phosphatase 57 42 - 121 unit/L LAB CHEMISTRY METHOD 04/07/2024 10:14 AM [facility] Total Protein 4.9(L) 6.0 - 8.0 g/dL LAB CHEMISTRY METHOD 04/07/2024 10:14 AM [facility] Albumin 2.4(L) 3.2 - 5.0 g/dL LAB CHEMISTRY METHOD 04/07/2024 10:14 AM [facility] Total Bilirubin 0.9 0.0 - 1.4 mg/dL LAB CHEMISTRY METHOD 04/07/2024 10:14 AM [facility] Blood Venous blood specimen / Unknown Venipuncture / Unknown 04/07/2024 5:04 AM EST 04/07/2024 9:04 AM EST us Dallas Lewis MD LAB BLOOD ORDERABLES Final Resu lt [facility] [address] [place] [address], * (ABNORMAL) Complete blood count (04/07/2024 5:04 AM EST) WBC 11.8(H) 4.8 - 10.8 K/mcL LAB HEMETOLOGY METHOD 04/07/2024 9:27 AM [facility] RBC 3.60(L) 3.80 - 4.80 M/mcL LAB HEMETOLOGY METHOD 04/07/2024 9:27 AM [facility] Hemoglobin 10.4(L) 11.5 - 16.0 g/dL LAB HEMETOLOGY METHOD 04/07/2024 9:27 AM [facility] Hematocrit 31.5(L) 35.0 - 47.0 % LAB HEMETOLOGY METHOD 04/07/2024 9:27 AM [facility] MCV 87.5 79.0 - 98.0 FL LAB HEMETOLOGY METHOD 04/07/2024 9:27 AM [facility] MCH 28.9 27.0 - 32.0 pcg LAB HEMETOLOGY METHOD 04/07/2024 9:27 AM [facility] MCHC 33.0 32.0 - 37.0 g/dL [...] % LAB HEMETOLOGY METHOD 04/07/2024 9:27 AM [facility] NRBC Absolute 0.00 <0.10 K/mcL LAB HEMETOLOGY METHOD 04/07/2024 9:27 AM [facility] Blood Venous blood specimen / Unknown Venipuncture / Unknown 04/07/2024 5:04 AM EST 04/07/2024 9:04 AM EST us Dallas Lewis MD LAB BLOOD ORDERABLES Final Resu lt [facility] [address] [place] [address], documented in this encounter Visit Diagnoses Diagnosis Hypothyroidism, unspecified Age-related osteoporosis without current pathological fracture documented in this encounter Care Teams Drawing Tracer Relationship Specialty Start Date End Date Dallas Lewis MD [address] [place] [address] PCP - General Internal Medicine 04/07/24 documented as of this encounter
--- OUTSIDE RECORDS SUMMARY | 2025-01-04 13:29 | XMS_ITS | Clinical Summary ---
Author Organization [address] [facility] Address [address] [place] [address] Phone Care Team Providers Care Shipping Checker Name Role Phone Dallas Lewis MD Primary Care Provider Social History Tobacco Use Types Packs/Day Years [...] nts (1 - 1-dose 75+ series) 02/15/2023 Depression Screening 02/23/2024 Falls Risk Assessment 04/07/2024 Hepatitis C Screening 04/07/2024 Medicare Annual Wellness Visit 04/07/2024 Osteoporosis Screening (Bone Density Screening) 04/07/2024 Social Influencers of Health Screening 04/07/2024 COVID-19 Vaccine ( - 2024-2 6 season) 2024 Influenza Vaccine (#1) 2024 HIB Vaccines Aged Out No longer [...] on patient's age to complete this topic Insurance [place] [id number] Care Teams Shipping Checker Relationship Specialty Start Date End Date Dallas Lewis MD [address] [place] [id number] PCP - General Internal Medicine 04/07/24
--- OUTSIDE RECORDS SUMMARY | 2025-01-04 13:29 | XMS_ITS | Encounter Summary ---
Author Organization [employer] Address [address] [place] [address] Care Team Providers Care Lie Detector Operator Name Role Phone Dallas Lewis MD Primary Care Provider [phone] Encounter Details Date Type Department Care Team (Late st Contact Info) Description 04/19/2024 Lab Requisition [facility] - Main Lab 299 [facility] [place] [address] Dallas Lewis MD [address] [place] [address] Hypothyroidism, unspecified; Age-related osteoporosis without [...] fracture documented in this encounter Care Teams Lie Detector Operator Relationship Specialty Start Date End Date Dallas Lewis MD [address] [place] [address] PCP - General Internal Medicine 04/07/24 documented as of this encounter
--- OUTSIDE RECORDS SUMMARY | 2025-01-04 13:29 | XMS_ITS | Encounter Summary ---
Author Organization [facility] Address [address] [place] [address] Care Team Providers Care Outside Upholsterer Name Role Phone Dallas Lewis MD Primary Care Provider [phone] Encounter Details Date Type Department Care Team (Late st Contact Info) Description 04/12/2024 Lab Requisition [facility] - Main Lab 299 [facility] [employer] [address] Dallas Lewis MD [address] [place] [address] Hypothyroidism, unspecified; Age-related osteoporosis without current [...] LAB CHEMISTRY METHOD 04/13/2024 9:49 AM EST [facility] Potassium 3.8 3.5 - 5.5 mmol/L LAB CHEMISTRY METHOD 04/13/2024 9:49 AM EST [facility] Chloride 106 96 - 110 mmol/L LAB CHEMISTRY METHOD 04/13/2024 9:49 AM [facility] CO2 25 21 - 32 mmol/L LAB CHEMISTRY METHOD 04/13/2024 9:49 AM [facility] Anion Gap 8 3 - 11 LAB CHEMISTRY METHOD 04/13/2024 9:49 AM [facility] Glucose 81 70 - 100 mg/dL LAB CHEMISTRY METHOD 04/13/2024 9:49 AM [facility] BUN 11 5 - 25 mg/dL LAB CHEMISTRY METHOD 04/13/2024 9:49 AM [facility] Creatinine 0.60 0.50 - 1.10 mg/dL LAB CHEMISTRY METHOD 04/13/2024 9:49 AM [facility] eGFR 93 >=60 mL/min/1. 73m2 LAB CHEMISTRY METHOD 04/13/2024 9:49 AM [facility] Comment:Calculation based on the Chronic Kidney Disease Epidemiology Collaboration (CKD-EPI) equation refit without adjustment for race. BUN/Creatinine Ratio 18.3 LAB CHEMISTRY METHOD 04/13/2024 9:49 AM [facility] Calcium 8.3(L) 8.5 - 10.5 mg/dL LAB CHEMISTRY METHOD 04/13/2024 9:49 AM [facility] Blood Venous blood specimen / Unknown 04/13/2024 5:55 AM EST 04/13/2024 9:20 AM EST us Dallas Lewis MD LAB BLOOD ORDERABLES Final Resu lt [facility] [address] [place] [address], * (ABNORMAL) Complete blood count (04/13/2024 5:55 AM EST) WBC 7.6 4.8 - 10.8 K/mcL LAB HEMETOLOGY METHOD 04/13/2024 9:35 AM [facility] RBC 3.60(L) 3.80 - 4.80 M/mcL LAB HEMETOLOGY METHOD 04/13/2024 9:35 AM [facility] Hemoglobin 10.3(L) 11.5 - 16.0 g/dL LAB HEMETOLOGY METHOD 04/13/2024 9:35 AM [facility] Hematocrit 32.0(L) 35.0 - 47.0 % LAB HEMETOLOGY METHOD 04/13/2024 9:35 AM [facility] MCV 88.6 79.0 - 98.0 FL LAB HEMETOLOGY METHOD 04/13/2024 9:35 AM [facility] MCH 28.5 27.0 - 32.0 pcg LAB HEMETOLOGY METHOD 04/13/2024 9:35 AM [facility] MCHC 32.2 32.0 - 37.0 g/dL LAB HEMETOLOGY METHOD 04/13/2024 9:35 AM [facility] RDW 13.2 11.0 - 15.0 % LAB HEMETOLOGY METHOD 04/13/2024 9:35 AM [facility] Platelets 345 130 - 400 K/mcL LAB HEMETOLOGY METHOD 04/13/2024 9:35 AM [facility] MPV 9.3 7.0 - 11.0 FL LAB HEMETOLOGY METHOD 04/13/2024 9:35 AM [facility] NRBC 0.0 <1.0 % LAB HEMETOLOGY METHOD 04/13/2024 9:35 AM [facility] NRBC Absolute 0.00 <0.10 K/mcL LAB HEMETOLOGY METHOD 04/13/2024 9:35 AM [facility] Blood Venous blood specimen / Unknown Venipuncture / Unknown 04/13/2024 5:55 AM EST 04/13/2024 9:16 AM EST Dallas Lewis MD LAB BLOOD ORDERABLES Final Resu lt [facility] [address] [place] [address], documented in this encounter Visit Diagnoses Diagnosis Hypothyroidism, unspecified Age-related osteoporosis without current pathological fracture documented in this encounter Care Teams Outside Upholsterer Relationship Specialty Start Date End Date Dallas Lewis MD [address] [place] [address] PCP - General Internal Medicine 04/07/24 documented as of this encounter
--- OUTSIDE RECORDS SUMMARY | 2025-01-04 13:29 | XMS_ITS | Encounter Summary ---
Author Organization [employer] [facility] Address [address] [place] [address] Care Team Providers Care Die Sinking Machine Operator Name Role Phone Dallas Lewis MD Primary Care Provider [phone] Encounter Details Date Type Department Care Team (Late st Contact Info) Description 04/08/2024 Lab Requisition [facility] - Main Lab 299 [place] [address] Dallas Lewis MD [address] [place] [address] Hypothyroidism, unspecified; Age-related osteoporosis without current [...] LAB CHEMISTRY METHOD 04/10/2024 10:55 AM EST [facility] Potassium 4.2 3.5 - 5.5 mmol/L LAB CHEMISTRY METHOD 04/10/2024 10:55 AM EST [facility] Chloride 105 96 - 110 mmol/L LAB CHEMISTRY METHOD 04/10/2024 10:55 AM [facility] CO2 27 21 - 32 mmol/L LAB CHEMISTRY METHOD 04/10/2024 10:55 AM [facility] Anion Gap 9 3 - 11 LAB CHEMISTRY METHOD 04/10/2024 10:55 AM [facility] Glucose 86 70 - 100 mg/dL LAB CHEMISTRY METHOD 04/10/2024 10:55 AM [facility] BUN 14 5 - 25 mg/dL LAB CHEMISTRY METHOD 04/10/2024 10:55 AM [facility] Creatinine 0.68 0.50 - 1.10 mg/dL LAB CHEMISTRY METHOD 04/10/2024 10:55 AM [facility] eGFR 90 >=60 mL/min/1. 73m2 LAB CHEMISTRY METHOD 04/10/2024 10:55 AM [facility] Comment:Calculation based on the Chronic Kidney Disease Epidemiology Collaboration (CKD-EPI) equation refit without adjustment for race. BUN/Creatinine Ratio 20.6 LAB CHEMISTRY METHOD 04/10/2024 10:55 AM [facility] Calcium 8.4(L) 8.5 - 10.5 mg/dL LAB CHEMISTRY METHOD 04/10/2024 10:55 AM [facility] AST (SGOT) 34 10 - 42 unit/L LAB CHEMISTRY METHOD 04/10/2024 10:55 AM [facility] ALT (SGPT) 28 10 - 60 unit/L LAB CHEMISTRY METHOD 04/10/2024 10:55 AM [facility] Alkaline Phosphatase 59 42 - 121 unit/L LAB CHEMISTRY METHOD 04/10/2024 10:55 AM [facility] Total Protein 5.2(L) 6.0 - 8.0 g/dL LAB CHEMISTRY METHOD 04/10/2024 10:55 AM [facility] Albumin 2.6(L) 3.2 - 5.0 g/dL LAB CHEMISTRY METHOD 04/10/2024 10:55 AM [facility] Total Bilirubin 0.8 0.0 - 1.4 mg/dL LAB CHEMISTRY METHOD 04/10/2024 10:55 AM [facility] Blood Venous blood specimen / Unknown Venipuncture / Unknown 04/10/2024 5:54 AM EST 04/10/2024 9:51 AM EST us Dallas Lewis MD LAB BLOOD ORDERABLES Final Resu lt [facility] [address] [place] [address], * (ABNORMAL) Complete blood count (04/10/2024 5:54 AM EST) WBC 8.5 4.8 - 10.8 K/mcL LAB HEMETOLOGY METHOD 04/10/2024 10:21 AM [facility] RBC 3.70(L) 3.80 - 4.80 M/mcL LAB HEMETOLOGY METHOD 04/10/2024 10:21 AM [facility] Hemoglobin 10.7(L) 11.5 - 16.0 g/dL LAB HEMETOLOGY METHOD 04/10/2024 10:21 AM [facility] Hematocrit 32.7(L) 35.0 - 47.0 % LAB HEMETOLOGY METHOD 04/10/2024 10:21 AM [facility] MCV 88.6 79.0 - 98.0 FL LAB HEMETOLOGY METHOD 04/10/2024 10:21 AM [facility] MCH 29.0 27.0 - 32.0 pcg LAB HEMETOLOGY METHOD 04/10/2024 10:21 AM [facility] MCHC 32.7 32.0 - 37.0 g/dL LAB HEMETOLOGY METHOD 04/10/2024 10:21 AM EST [facility] RDW 13.0 11.0 - 15.0 % LAB HEMETOLOGY METHOD 04/10/2024 10:21 AM EST [facility] Platelets 328 130 - 400 K/mcL LAB HEMETOLOGY METHOD 04/10/2024 10:21 AM [facility] MPV 9.2 7.0 - 11.0 FL LAB HEMETOLOGY METHOD 04/10/2024 10:21 AM [facility] NRBC 0.0 <1.0 % LAB HEMETOLOGY METHOD 04/10/2024 10:21 AM [facility] NRBC Absolute 0.00 <0.10 K/mcL LAB HEMETOLOGY METHOD 04/10/2024 10:21 AM [facility] Blood Venous blood specimen / Unknown Venipuncture / Unknown 04/10/2024 5:54 AM EST 04/10/2024 9:54 AM EST us Dallas Lewis MD LAB BLOOD ORDERABLES Final Resu lt [facility] [address] [place] [address], documented in this encounter Visit Diagnoses Diagnosis Hypothyroidism, unspecified Age-related osteoporosis without current pathological fracture documented in this encounter Care Teams Die Sinking Machine Operator Relationship Specialty Start Date End Date Dallas Lewis MD [address] [place] [address] PCP - General Internal Medicine 04/07/24 documented as of this encounter
--- OUTSIDE RECORDS SUMMARY | 2025-01-04 13:29 | XMS_ITS | Encounter Summary ---
Author Organization [facility] Address [address] [place] [address] Care Team Providers Care Front End Web Developer Name Role Phone Dallas Lewis MD Primary Care Provider [phone] Encounter Details Date Type Department Care Team (Late st Contact Info) Description 04/15/2024 Lab Requisition [facility] - Main Lab 299 [facility] [place] [address] Dallas Lewis MD [address] [place] [address] Hypothyroidism, unspecified; Age-related osteoporosis without current [...] LAB CHEMISTRY METHOD 04/17/2024 11:16 AM EST [facility] Potassium 4.5 3.5 - 5.5 mmol/L LAB CHEMISTRY METHOD 04/17/2024 11:16 AM EST [facility] Chloride 103 96 - 110 mmol/L LAB CHEMISTRY METHOD 04/17/2024 11:[address] [facility] CO2 29 21 - 32 mmol/L LAB CHEMISTRY METHOD 04/17/2024 11:[address] [facility] Anion Gap 6 3 - 11 LAB CHEMISTRY METHOD 04/17/2024 11:[address] [facility] Glucose 98 70 - 100 mg/dL LAB CHEMISTRY METHOD 04/17/2024 11:[address] [facility] BUN 14 5 - 25 mg/dL LAB CHEMISTRY METHOD 04/17/2024 11:[address] [facility] Creatinine 0.78 0.50 - 1.10 mg/dL LAB CHEMISTRY METHOD 04/17/2024 11:[address] [facility] eGFR 79 >=60 mL/min/1. 73m2 LAB CHEMISTRY METHOD 04/17/2024 11:[address] [facility] Comment:Calculation based on the Chronic Kidney Disease Epidemiology Collaboration (CKD-EPI) equation refit without adjustment for race. BUN/Creatinine Ratio 17.9 LAB CHEMISTRY METHOD 04/17/2024 11:[address] [facility] Calcium 9.2 8.5 - 10.5 mg/dL LAB CHEMISTRY METHOD 04/17/2024 11:[address] [facility] AST (SGOT) 112(H) 10 - 42 unit/L LAB CHEMISTRY METHOD 04/17/2024 11:[address] [facility] Comment:Results verified by repeat testing ALT (SGPT) 199(H) 10 - 60 unit/L LAB CHEMISTRY METHOD 04/17/2024 11:[address] [facility] Comment:Results verified by repeat testing Alkaline Phosphatase 168(H) 42 - 121 unit/L LAB CHEMISTRY METHOD 04/17/2024 11:[address] [facility] Comment:Results verified by repeat testing Total Protein 6.5 6.0 - 8.0 g/dL LAB CHEMISTRY METHOD 04/17/2024 11:[address] [facility] Albumin 3.5 3.2 - 5.0 g/dL LAB CHEMISTRY METHOD 04/17/2024 11:[address] [facility] Total Bilirubin 0.9 0.0 - 1.4 mg/dL LAB CHEMISTRY METHOD 04/17/2024 11:[address] [facility] Blood Venous blood specimen / Unknown Venipuncture / Unknown 04/17/2024 5:51 AM EST 04/17/2024 9:55 AM EST us Dallas Lewis MD LAB BLOOD ORDERABLES Final Resu lt [facility] [address] [place] [address], [place] [phone] * (ABNORMAL) Complete blood count (04/17/2024 5:51 AM EST) WBC 12.9(H) 4.8 - 10.8 K/mcL LAB HEMETOLOGY METHOD 04/17/2024 10:[address] [facility] RBC 4.30 3.80 - 4.80 M/mcL LAB HEMETOLOGY METHOD 04/17/2024 10:[address] [facility] Hemoglobin 12.2 11.5 - 16.0 g/dL LAB HEMETOLOGY METHOD 04/17/2024 10:[address] [facility] Hematocrit 39.8 35.0 - 47.0 % LAB HEMETOLOGY METHOD 04/17/2024 10:[address] [facility] MCV 92.3 79.0 - 98.0 FL LAB HEMETOLOGY METHOD 04/17/2024 10:[address] [facility] MCH 28.3 27.0 - 32.0 pcg LAB HEMETOLOGY METHOD 04/17/2024 10:[address] [facility] MCHC 30.7(L) 32.0 - 37.0 g/dL LAB HEMETOLOGY METHOD 04/17/2024 10:22 AM EST [facility] RDW 13.5 11.0 - 15.0 % LAB HEMETOLOGY METHOD 04/17/2024 10:[address] [facility] Platelets 551(H) 130 - 400 K/mcL LAB HEMETOLOGY METHOD 04/17/2024 10:22 AM EST [facility] MPV 9.6 7.0 - 11.0 FL LAB HEMETOLOGY METHOD 04/17/2024 10:22 AM EST [facility] NRBC 0.0 <1.0 % LAB HEMETOLOGY METHOD 04/17/2024 10:[address] [facility] NRBC Absolute 0.00 <0.10 K/mcL LAB HEMETOLOGY METHOD 04/17/2024 10:[address] [facility] Blood Venous blood specimen / Unknown Venipuncture / Unknown 04/17/2024 5:51 AM EST 04/17/2024 9:57 AM EST Dallas Lewis MD LAB BLOOD ORDERABLES Final Resu lt [facility] [address] [place] [address], documented in this encounter Visit Diagnoses Diagnosis Hypothyroidism, unspecified Age-related osteoporosis without current pathological fracture documented in this encounter Care Teams Front End Web Developer Relationship Specialty Start Date End Date Dallas Lewis MD [address] [place] [address] PCP - General Internal Medicine 04/07/24 documented as of this encounter
== END 2025-01-04 11:40 | disposition home or self-care (01) ==
LOC: HO.HMCH 10:52
DX: Z00.00 Encounter for general adult medical examination without abnormal findings (principal); E03.9 Hypothyroidism, unspecified; Z53.20 Procedure and treatment not carried out because of patient's decision for unspecified reasons; R03.0 Elevated blood-pressure reading, without diagnosis of hypertension; K21.9 Gastro-esophageal reflux disease without esophagitis; Z96.641 Presence of right artificial hip joint; M81.0 Age-related osteoporosis without current pathological fracture

== ENCOUNTER 2025-01-09 08:18 | Outpatient (REF) | payer MEDICARE, OTHER, SELFPAY ==
[2025-01-09 08:29] LABS: MANUAL DIFF FLAG NO
[2025-01-09 08:57] LABS: Hematocrit 42.8 % (37.0-47.0); Hemoglobin 13.8 g/dl (12.0-16.0); Imm Gran Abs Auto 0.02 X10*3/uL (0.00-0.03); Imm Gran Pct Auto 0.3 % (0.0-0.4); Lymphocytes Absolute Auto 2.3 X10*3/uL (1.2-4.9); Mean Corpuscular HGB Conc 32.2 g/dl (31.0-35.0); Mean Corpuscular Hemoglobin 27.5 pg (27.0-33.0); Mean Corpuscular Volume 85.4 fL (80.0-98.0); NRBC Abs Auto 0.000 X10*3/uL (0.0-0.012); NRBC Pct Auto 0.0 /100WBC (0.0-0.2); Platelet Count 266 X10*3/uL (160-400); Red Blood Count 5.01 X10*6/uL (4.20-5.50); White Blood Count 7.7 X10*3/uL (4.8-10.8)
[2025-01-09 09:46] LABS: Alanine Aminotransferase 15 U/L (0-31); Albumin Level 4.5 g/dL (3.5-5.0); Alkaline Phosphatase 89 U/L (39-117); Anion Gap 11 (12-20); Aspartate Amino Transferase 25 U/L (5-31); Blood Urea Nitrogen 15 mg/dL (9-16); Calcium 9.3 mg/dL (8.4-10.2); Carbon Dioxide 27 mmol/L (22-29); Chloride 107 mmol/L (96-108); Cholesterol 172 mg/dL (<200); Estimated Glomerular Filt Rate > 60; HDL Cholesterol 70 mg/dL (>40); Potassium 4.3 mmol/L (3.3-5.1); Sodium 141 mmol/L (135-145); Total Protein 6.8 g/dL (6.5-8.0); Triglycerides 50 mg/dL (<150)
[2025-01-09 10:03] LABS: Folate 13.0 ng/mL (> or = 4.0); Vitamin B12 913 pg/mL (200-900)
[2025-01-09 10:43] LABS: Free T4 (Free Thyroxine) 0.89 ng/dL (0.71-1.85)
== END 2025-01-09 08:19 | disposition home or self-care (01) ==
LOC: HO.LAB 08:18
PROVIDERS: PCP Internal Medicine
DX: Z00.00 Encounter for general adult medical examination without abnormal findings (principal); Z13.21 Encounter for screening for nutritional disorder; Z13.0 Encounter for screening for diseases of the blood and blood-forming organs and certain disorders involving the immune mechanism; Z13.29 Encounter for screening for other suspected endocrine disorder; K21.9 Gastro-esophageal reflux disease without esophagitis; E78.00 Pure hypercholesterolemia, unspecified
CPT/HCPCS: 36415; 80053; 80061; 82306; 82607; 82746; 84439; 84443; 85025

== ENCOUNTER 2025-02-08 11:21 | Outpatient (REF) | payer MEDICARE, OTHER, SELFPAY ==
--- OUTSIDE RECORDS SUMMARY | 2025-02-08 14:57 | XMS_ITS | Encounter Summary ---
Author Organization [employer] [facility] Address [address] [place] [address] Care Team Providers Care Bods Developer Name Role Phone Dallas Lewis MD Primary Care Provider [phone] Encounter Details Date Type Department Care Team (Late st Contact Info) Description 04/08/2024 Lab Requisition [facility] - Main Lab 299 [facility] [place] [address] Dallas Lewis MD [address] [place] [address] Hypothyroidism, unspecified; Age-related osteoporosis without current [...] LAB CHEMISTRY METHOD 04/10/2024 10:55 AM EST [facility] Potassium 4.2 3.5 - 5.5 mmol/L LAB CHEMISTRY METHOD 04/10/2024 10:55 AM EST [facility] Chloride 105 96 - 110 [...] [facility] Comment:Calculation based on the Chronic [...] MD LAB BLOOD ORDERABLES Final Resu lt [facility] [address] [place] [address], * (ABNORMAL) Complete blood count (04/10/2024 5:54 [...] LAB HEMETOLOGY METHOD 04/10/2024 10:21 AM EST [facility] RDW 13.0 11.0 - 15.0 % LAB HEMETOLOGY METHOD 04/10/2024 10:21 AM EST [facility] Platelets 328 130 - 400 K/mcL LAB HEMETOLOGY METHOD 04/10/2024 10:21 AM [facility] MPV 9.2 7.0 - 11.0 FL LAB HEMETOLOGY METHOD 04/10/2024 10:21 AM [facility] NRBC 0.0 <1.0 % LAB HEMETOLOGY METHOD 04/10/2024 10:21 AM [facility] NRBC Absolute 0.00 <0.10 K/mcL LAB HEMETOLOGY METHOD 04/10/2024 10:21 AM [facility] Blood Venous blood specimen / Unknown Venipuncture / Unknown 04/10/2024 5:54 AM EST 04/10/2024 9:54 AM EST us Dallas Lewis MD LAB BLOOD ORDERABLES Final Resu lt [facility] [address] [place] [address], documented in this encounter Visit Diagnoses Diagnosis Hypothyroidism, unspecified Age-related osteoporosis without current pathological fracture documented in this encounter Care Teams Bods Developer Relationship Specialty Start Date End Date Dallas Lewis MD [address] [place] [address] PCP - General Internal Medicine 04/07/24 documented as of this encounter
--- OUTSIDE RECORDS SUMMARY | 2025-02-08 14:57 | XMS_ITS | Encounter Summary ---
Author Organization [employer] [facility] Address [address] [place] [address] Care Team Providers Care Black Top Paver Operator Name Role Phone Dallas Lewis MD Primary Care Provider [phone] Encounter Details Date Type Department Care Team (Late st Contact Info) Description 04/15/2024 Lab Requisition [facility] - Main Lab 299 [facility] [place] [address] Dallas Lewis MD [address] [place] [address] Hypothyroidism, unspecified; Age-related osteoporosis without current [...] mmol/L LAB CHEMISTRY METHOD 04/17/2024 11:16 AM [facility] CO2 29 21 - 32 mmol/L LAB CHEMISTRY METHOD 04/17/2024 11:16 AM [facility] Anion Gap 6 3 - 11 LAB CHEMISTRY METHOD 04/17/2024 11:16 AM [facility] Glucose 98 70 - 100 mg/dL LAB CHEMISTRY METHOD 04/17/2024 11:16 AM [facility] BUN 14 5 - 25 mg/dL LAB CHEMISTRY METHOD 04/17/2024 11:16 AM [facility] Creatinine 0.78 0.50 - 1.10 mg/dL LAB CHEMISTRY METHOD 04/17/2024 11:16 AM [facility] eGFR 79 >=60 mL/min/1. 73m2 LAB CHEMISTRY METHOD 04/17/2024 11:16 AM [facility] Comment:Calculation based on the Chronic Kidney Disease Epidemiology Collaboration (CKD-EPI) equation refit without adjustment for race. BUN/Creatinine Ratio 17.9 LAB CHEMISTRY METHOD 04/17/2024 11:16 AM [facility] Calcium 9.2 8.5 - 10.5 mg/dL LAB CHEMISTRY METHOD 04/17/2024 11:16 AM [facility] AST (SGOT) 112(H) 10 - 42 unit/L LAB CHEMISTRY METHOD 04/17/2024 11:16 AM [facility] Comment:Results verified by repeat testing ALT (SGPT) 199(H) 10 - 60 unit/L LAB CHEMISTRY METHOD 04/17/2024 11:16 AM [facility] Comment:Results verified by repeat testing Alkaline Phosphatase 168(H) 42 - 121 unit/L LAB CHEMISTRY METHOD 04/17/2024 11:16 AM [facility] Comment:Results verified by repeat testing Total Protein 6.5 6.0 - 8.0 g/dL LAB CHEMISTRY METHOD 04/17/2024 11:16 AM [facility] Albumin 3.5 3.2 - 5.0 g/dL LAB CHEMISTRY METHOD 04/17/2024 11:16 AM [facility] Total Bilirubin 0.9 0.0 - 1.4 mg/dL LAB CHEMISTRY METHOD 04/17/2024 11:16 AM [facility] Blood Venous blood specimen / Unknown Venipuncture / Unknown 04/17/2024 5:51 AM EST 04/17/2024 9:55 AM EST us Dallas Lewis MD LAB BLOOD ORDERABLES Final Resu lt [facility] [address] [place] [address], [place] [phone] * (ABNORMAL) Complete blood count (04/17/2024 5:51 AM EST) WBC 12.9(H) 4.8 - 10.8 K/mcL LAB HEMETOLOGY METHOD 04/17/2024 10:22 AM [facility] RBC 4.30 3.80 - 4.80 M/mcL LAB HEMETOLOGY METHOD 04/17/2024 10:22 AM [facility] Hemoglobin 12.2 11.5 - 16.0 g/dL LAB HEMETOLOGY METHOD 04/17/2024 10:22 AM [facility] Hematocrit 39.8 35.0 - 47.0 % LAB HEMETOLOGY METHOD 04/17/2024 10:22 AM [facility] MCV 92.3 79.0 - 98.0 FL LAB HEMETOLOGY METHOD 04/17/2024 10:22 AM [facility] MCH 28.3 27.0 - 32.0 pcg LAB HEMETOLOGY METHOD 04/17/2024 10:22 AM [facility] MCHC 30.7(L) 32.0 - 37.0 g/dL LAB HEMETOLOGY METHOD 04/17/2024 10:22 AM EST [facility] RDW 13.5 11.0 - 15.0 % LAB HEMETOLOGY METHOD 04/17/2024 10:22 AM [facility] Platelets 551(H) 130 - 400 K/mcL LAB HEMETOLOGY METHOD 04/17/2024 10:22 AM EST [facility] MPV 9.6 7.0 - 11.0 FL LAB HEMETOLOGY METHOD 04/17/2024 10:22 AM EST [facility] NRBC 0.0 <1.0 % LAB HEMETOLOGY METHOD 04/17/2024 10:22 AM [facility] NRBC Absolute 0.00 <0.10 K/mcL LAB HEMETOLOGY METHOD 04/17/2024 10:22 AM [facility] Blood Venous blood specimen / Unknown Venipuncture / Unknown 04/17/2024 5:51 AM EST 04/17/2024 9:57 AM EST Dallas Lewis MD LAB BLOOD ORDERABLES Final Resu lt [facility] [address] [place] [address], documented in this encounter Visit Diagnoses Diagnosis Hypothyroidism, unspecified Age-related osteoporosis without current pathological fracture documented in this encounter Care Teams Black Top Paver Operator Relationship Specialty Start Date End Date Dallas Lewis MD [address] [place] [address] PCP - General Internal Medicine 04/07/24 documented as of this encounter
--- OUTSIDE RECORDS SUMMARY | 2025-02-08 14:58 | XMS_ITS | Clinical Summary ---
Author Organization [address] [facility] Address [address] [place] [address] Phone Care Team Providers Care Weight Loss Physician Name Role Phone Dallas Lewis MD Primary Care Provider [phone] Social History Tobacco Use Types Packs/Day Years [...] age to complete this topic Insurance [place] [id number] Care Teams Weight Loss Physician Relationship Specialty Start Date End Date Dallas Lewis MD [address] [id number] PCP - General Internal Medicine 04/07/24
--- OUTSIDE RECORDS SUMMARY | 2025-02-08 14:58 | XMS_ITS | Encounter Summary ---
Author Organization [employer] [facility] Address [address] [place] [address] Care Team Providers Care Belt Molder Name Role Phone Dallas Lewis MD Primary Care Provider [phone] Encounter Details Date Type Department Care Team (Late st Contact Info) Description 04/12/2024 Lab Requisition [facility] - Main Lab [address] [facility] [place] [address] Dallas Lewis MD [address] [place] [phone] Hypothyroidism, unspecified; Age-related osteoporosis without current [...] CHEMISTRY METHOD 04/13/2024 9:49 AM EST [facility] Potassium 3.8 3.5 - 5.5 mmol/L LAB CHEMISTRY METHOD 04/13/2024 9:49 AM EST [facility] Chloride 106 96 - 110 mmol/L LAB CHEMISTRY METHOD 04/13/2024 9:49 AM [facility] CO2 25 21 - 32 mmol/L LAB CHEMISTRY METHOD 04/13/2024 9:49 AM [facility] Anion Gap 8 3 - 11 LAB CHEMISTRY METHOD 04/13/2024 9:49 AM [facility] Glucose 81 70 - 100 mg/dL LAB CHEMISTRY METHOD 04/13/2024 9:49 AM [facility] BUN 11 5 - 25 mg/dL LAB CHEMISTRY METHOD 04/13/2024 9:49 AM [facility] Creatinine 0.60 0.50 - 1.10 mg/dL LAB CHEMISTRY METHOD 04/13/2024 9:49 AM [facility] eGFR 93 >=60 mL/min/1. 73m2 LAB CHEMISTRY METHOD 04/13/2024 9:49 AM [facility] Comment:Calculation based on the Chronic Kidney Disease Epidemiology Collaboration (CKD-EPI) equation refit without adjustment for race. BUN/Creatinine Ratio 18.3 LAB CHEMISTRY METHOD 04/13/2024 9:49 AM [facility] Calcium 8.3(L) 8.5 - 10.5 mg/dL LAB CHEMISTRY METHOD 04/13/2024 9:49 AM [facility] Blood Venous blood specimen / Unknown 04/13/2024 5:55 AM EST 04/13/2024 9:20 AM EST us Dallas Lewis MD LAB BLOOD ORDERABLES Final Resu lt [facility] [address] [place] [address], * (ABNORMAL) Complete blood count (04/13/2024 5:55 AM EST) WBC 7.6 4.8 - 10.8 K/mcL LAB HEMETOLOGY METHOD 04/13/2024 9:35 AM [facility] RBC 3.60(L) 3.80 - 4.80 M/mcL LAB HEMETOLOGY METHOD 04/13/2024 9:35 AM [facility] Hemoglobin 10.3(L) 11.5 - 16.0 g/dL LAB HEMETOLOGY METHOD 04/13/2024 9:35 AM [facility] Hematocrit 32.0(L) 35.0 - 47.0 % LAB HEMETOLOGY METHOD 04/13/2024 9:35 AM [facility] MCV 88.6 79.0 - 98.0 FL LAB HEMETOLOGY METHOD 04/13/2024 9:35 AM [facility] MCH 28.5 27.0 - 32.0 pcg LAB HEMETOLOGY METHOD 04/13/2024 9:35 AM [facility] MCHC 32.2 32.0 - 37.0 g/dL LAB HEMETOLOGY METHOD 04/13/2024 9:35 AM [facility] RDW 13.2 11.0 - 15.0 % LAB HEMETOLOGY METHOD 04/13/2024 9:35 AM [facility] Platelets 345 130 - 400 K/mcL LAB HEMETOLOGY METHOD 04/13/2024 9:35 AM [facility] MPV 9.3 7.0 - 11.0 FL LAB HEMETOLOGY METHOD 04/13/2024 9:35 AM [facility] NRBC 0.0 <1.0 % LAB HEMETOLOGY METHOD 04/13/2024 9:35 AM [facility] NRBC Absolute 0.00 <0.10 K/mcL LAB HEMETOLOGY METHOD 04/13/2024 9:35 AM [facility] Blood Venous blood specimen / Unknown Venipuncture / Unknown 04/13/2024 5:55 AM EST 04/13/2024 9:16 AM EST Dallas Lewis MD LAB BLOOD ORDERABLES Final Resu lt [facility] ([facility] [place] [address] [place] [address], documented in this encounter Visit Diagnoses Diagnosis Hypothyroidism, unspecified Age-related osteoporosis without current pathological fracture documented in this encounter Care Teams Belt Molder Relationship Specialty Start Date End Date Dallas Lewis MD [address] [place] [address] PCP - General Internal Medicine 04/07/24 documented as of this encounter
--- OUTSIDE RECORDS SUMMARY | 2025-02-08 14:58 | XMS_ITS | Encounter Summary ---
Author Organization [employer] Address [address] [place] [address] Care Team Providers Care Library Media Specialist Name Role Phone Dallas Lewis MD Primary Care Provider [phone] Encounter Details Date Type Department Care Team (Late st Contact Info) Description 04/19/2024 Lab Requisition [facility] - Main Lab [address] [facility] [place] [address] Dallas Lewis MD [address] [place] [address] Hypothyroidism, unspecified; Age-related osteoporosis without [...] fracture documented in this encounter Care Teams Library Media Specialist Relationship Specialty Start Date End Date Dallas Lewis MD [address] [place] [address] PCP - General Internal Medicine 04/07/24 documented as of this encounter
--- OUTSIDE RECORDS SUMMARY | 2025-02-08 14:58 | XMS_ITS | Encounter Summary ---
Author Organization [employer] [facility] Address [address] [place] [address] Care Team Providers Care Webbing Inspector Name Role Phone Dallas Lewis MD Primary Care Provider [phone] Encounter Details Date Type Department Care Team (Late st Contact Info) Description 04/07/2024 Lab Requisition [facility] - Main Lab [address] [facility] [place] [address] Dallas Lewis MD [address] [place] [phone] Hypothyroidism, unspecified; Age-related osteoporosis without current [...] LAB CHEMISTRY METHOD 04/07/2024 10:14 AM EST [facility] Potassium 3.8 3.5 - 5.5 mmol/L LAB CHEMISTRY METHOD 04/07/2024 10:14 AM EST [facility] Chloride 104 96 - 110 mmol/L LAB CHEMISTRY METHOD 04/07/2024 10:14 AM [facility] CO2 30 21 - 32 mmol/L LAB CHEMISTRY METHOD 04/07/2024 10:14 AM [facility] Anion Gap 5 3 - 11 LAB CHEMISTRY METHOD 04/07/2024 10:14 AM [facility] Glucose 84 70 - 100 mg/dL LAB CHEMISTRY METHOD 04/07/2024 10:14 AM [facility] BUN 22 5 - 25 mg/dL LAB CHEMISTRY METHOD 04/07/2024 10:14 AM [facility] Creatinine 0.61 0.50 - 1.10 mg/dL LAB CHEMISTRY METHOD 04/07/2024 10:14 AM [facility] eGFR 93 >=60 mL/min/1. 73m2 LAB CHEMISTRY METHOD 04/07/2024 10:14 AM [facility] Comment:Calculation based on the Chronic Kidney Disease Epidemiology Collaboration (CKD-EPI) equation refit without adjustment for race. BUN/Creatinine Ratio 36.1 LAB CHEMISTRY METHOD 04/07/2024 10:14 AM [facility] Calcium 8.3(L) 8.5 - 10.5 mg/dL LAB CHEMISTRY METHOD 04/07/2024 10:14 AM [facility] AST (SGOT) 31 10 - 42 unit/L LAB CHEMISTRY METHOD 04/07/2024 10:14 AM [facility] ALT (SGPT) 24 10 - 60 unit/L LAB CHEMISTRY METHOD 04/07/2024 10:14 AM [facility] Alkaline Phosphatase 57 42 - 121 unit/L LAB CHEMISTRY METHOD 04/07/2024 10:14 AM [facility] Total Protein 4.9(L) 6.0 - 8.0 g/dL LAB CHEMISTRY METHOD 04/07/2024 10:14 AM [facility] Albumin 2.4(L) 3.2 - 5.0 g/dL LAB CHEMISTRY METHOD 04/07/2024 10:14 AM [facility] Total Bilirubin 0.9 0.0 - 1.4 mg/dL LAB CHEMISTRY METHOD 04/07/2024 10:14 AM [facility] Blood Venous blood specimen / Unknown Venipuncture / Unknown 04/07/2024 5:04 AM EST 04/07/2024 9:04 AM EST us Dallas Lewis MD LAB BLOOD ORDERABLES Final Resu lt [facility] [address] [place] [address], * (ABNORMAL) Complete blood count (04/07/2024 5:04 AM EST) WBC 11.8(H) 4.8 - 10.8 K/mcL LAB HEMETOLOGY METHOD 04/07/2024 9:27 AM [facility] RBC 3.60(L) 3.80 - 4.80 M/mcL LAB HEMETOLOGY METHOD 04/07/2024 9:27 AM [facility] Hemoglobin 10.4(L) 11.5 - 16.0 g/dL LAB HEMETOLOGY METHOD 04/07/2024 9:27 AM [facility] Hematocrit 31.5(L) 35.0 - 47.0 % LAB HEMETOLOGY METHOD 04/07/2024 9:27 AM [facility] MCV 87.5 79.0 - 98.0 FL LAB HEMETOLOGY METHOD 04/07/2024 9:27 AM [facility] MCH 28.9 27.0 - 32.0 pcg LAB HEMETOLOGY METHOD 04/07/2024 9:27 AM [facility] MCHC 33.0 32.0 - 37.0 g/dL LAB HEMETOLOGY METHOD 04/07/2024 9:27 AM EST [facility] RDW 13.2 11.0 - 15.0 % LAB HEMETOLOGY METHOD 04/07/2024 9:27 AM EST [facility] Platelets 243 130 - 400 K/mcL LAB HEMETOLOGY METHOD 04/07/2024 9:27 AM EST [facility] MPV 9.4 7.0 - 11.0 FL LAB HEMETOLOGY METHOD 04/07/2024 9:27 AM EST [facility] NRBC 0.0 <1.0 % LAB HEMETOLOGY METHOD 04/07/2024 9:27 AM [facility] NRBC Absolute 0.00 <0.10 K/mcL LAB HEMETOLOGY METHOD 04/07/2024 9:27 AM [facility] Blood Venous blood specimen / Unknown Venipuncture / Unknown 04/07/2024 5:04 AM EST 04/07/2024 9:04 AM EST us Dallas Lewis MD LAB BLOOD ORDERABLES Final Resu lt [facility] [address] [place] [address], documented in this encounter Visit Diagnoses Diagnosis Hypothyroidism, unspecified Age-related osteoporosis without current pathological fracture documented in this encounter Care Teams Webbing Inspector Relationship Specialty Start Date End Date Dallas Lewis MD [address] [place] [address] PCP - General Internal Medicine 04/07/24 documented as of this encounter
== END 2025-02-08 11:22 | disposition home or self-care (01) ==
LOC: HO.LAB 11:21
PROVIDERS: PCP Internal Medicine
DX: E03.9 Hypothyroidism, unspecified (principal)
CPT/HCPCS: 36415; 84443